=== PATIENT | male | born 1980 | race African-American/Black ===

== ENCOUNTER 2022-10-03 06:32 | Observation (INO) | payer MEDICARE, SELFPAY ==
[2022-10-03] VITALS (19 sets, daily range): BP systolic 116–163; BP diastolic 73–111; PULSE 66–95; RESP 15–18; TEMP 37.2–37.3; O2SAT 92–98; BMI 34.6
--- NOTE | 2022-10-03 06:37 | PC.NURSE ---
[facility] transfer center called at 0422 for bed availability. Pt information gathered and relayed to hospitalist at this time. (Dany Greenfield) [facility] called back at 0429 with acceptance and bed assignment was given at this time (209). Hospitalist notified that pt has arrived to ED at 0627.
--- NOTE | 2022-10-03 06:49 | CA_ITS ---
APPROVED REPORT EXAM: Comprehensive 2D, Doppler, and color-flow Echocardiogram Anesthesia Tech: Kaylah Nma RVT Ht: 6 ft 0 in Wt: 255lbs BSA: 2.36 BP: 160/98 mmHg Indications: NSTEMI,MAVIS,GERD,HTN,DM,CP 2D Dimensions LVOT 2.52 cm (M/F) 1.5-2.5 LA Volume 58.70 mL LA Volume Index 24.87 mL/m2 (M/F) 16-34 M-Mode Dimensions RVDd 2.15 cm (0.9-2.6) LA Diam 4.00 cm (1.9-4.0) LVDd 4.36 cm (3.5-5.7) Ao Diam 3.18 cm (2.0-3.7) LVDs 3.05 cm (3.5-5.7) IVSd 2.08 cm (0.6-1.1) PWd 0.67 cm (0.6-1.1) EF (Teich) 57.60% FS 30.00% EDV (Teich) 85.80 mL TAPSE 2.78 (<1.7) ESV (Teich) 36.40 mL LV Diastology E Decel Time 200.00 (160-240 msec) E/A Ratio 1.8 MED E' 5.60 (< 7 cm/sec) E'/MED E' Ratio 18.57 (>14) LAT E' 6.50 (<10 cm/sec) E/LAT E' Ratio 16.00 (>14) Aortic Valve AO Peak GR. 4.20 mmHg Mitral Valve MV E Max Phillip. 104.00 (40-130 cm/s) MV A Velocity 58.00 (40-130 cm/s) E/A Ratio 1.80 MV Decel. Time 200.00 (160-240 ms) MV PHT 59.00 ms Pulmonary Valve PV Peak Velocity 84.00 (50-150 cm/s) Tricuspid Valve TR P. Velocity 308.00 cm/s RAP Estimate 10.00 mmHg RVSP 48.00 mmHg Left Ventricle Left atrium is mildly enlarged, left ventricle is normal size mild concentric left ventricular hypertrophy, estimated ejection fraction 55% with no regional wall motion abnormality, diastolic parameters are inconclusive. Hypertrophy, estimated ejection fraction Right Ventricle Right atrium and right ventricle are mildly enlarged with normal contractility. Aortic Valve Aortic valve is grossly normal there is no aortic stenosis or aortic insufficiency. Mitral Valve Grossly normal, there is trace mitral regurgitation. Tricuspid Valve Cuspid valve grossly normal, there is mild tricuspid regurgitation, tricuspid regurgitation jet plus is inadequate for calculation of the right ventricular systolic pressure. Pulmonic Valve Pulmonic valve is poorly visualized. Great Vessels Aortic root is normal size. Inferior vena cava is poorly visualized. Pericardium No significant pericardial effusion noted. Conclusion 1. Mild biatrial enlargement, normal left ventricular size, mild concentric left ventricular hypertrophy, estimated ejection fraction 55% with no regional wall motion abnormality, diastolic parameters are inconclusive. 2. Mildly enlarged right ventricle with normal contractility. 3. Trace mitral and tricuspid regurgitation. 4. No significant pericardial effusion noted. 5. Inferior vena cava is poorly visualized. Electronically signed by : Carlin Dent MD 10/03/2022 17:26:41
--- NOTE | 2022-10-03 06:49 | XR_ITS ---
FINAL REPORT CLINICAL HISTORY: acs FINDINGS: A portable view of the chest is obtained. Cardiac and mediastinal silhouettes are normal. The lungs are clear. There is no pleural effusion or pneumothorax. IMPRESSION: No acute process on this portable exam. Reviewed, Interpreted and Dictated by Diane Burton MD Transcribed by Ana Cristina Foster Authenticated and [facility]
--- NOTE | 2022-10-03 06:52 | PC.NURSE ---
pt admitted as a direct admit from [place] to 209, placing tele on pt and notifying hospitalist that pt has arrived
--- NOTE | 2022-10-03 07:06 | PC.NURSE ---
notified MD Chamorro of pt's sleep apnea and that pt brought own cpap to hospital
[2022-10-03 07:21] LABS: Lactic Acid 1.7 mmol/L (0.7-2.1)
[2022-10-03 07:33] LABS: Troponin I < 0.01 ng/ml (0.00-0.034)
--- NOTE | 2022-10-03 07:37 | CT_ITS ---
FINAL REPORT TECHNIQUE: Axial imaging of the chest is obtained after the administration of contrast. 3-D MIP reformatted images were also obtained and reviewed per PE protocol. CLINICAL HISTORY: Chest Pain FINDINGS: The pulmonary arteries are well filled. There is no evidence of pulmonary embolus. There is no aortic dissection or intimal flap. There is no mediastinal, hilar, or axillary lymphadenopathy. The lungs are clear. There is no pleural or pericardial effusion. There is fluid density along the right paratracheal margin which may be an extension of the pericardial recess, a bronchogenic cyst is not excluded. Limited evaluation of the upper abdomen is without acute abnormality. There is fatty infiltrated liver. There is a nonobstructing left renal stone. There is no acute osseous abnormality. IMPRESSION: 1. No evidence of pulmonary embolism or aortic dissection. 2. Fluid density along the right paratracheal margin, could be an extension of the pericardial recess, bronchogenic cyst less likely. 3. Otherwise no acute abnormality identified. Reviewed, Interpreted and Dictated by Diane Burton MD Transcribed by Ana Cristina Foster Authenticated and [facility]
--- NOTE | 2022-10-03 07:41 | HMH.PHAINT1 ---
Pharmacy Intervention Comments: home medication list verified using list from outpat pharmacy and pt interview
[2022-10-03 07:50] LABS: Basophils # 0.1 K/mm3 (0-0.2); Basophils % 0.8 % (0.1-2.0); Eosinophils # 0.2 K/mm3 (0.0-0.4); Eosinophils % 2.6 % (0.1-12.0); Hematocrit 42.6 % (42.0-52.0); Hemoglobin 14.3 g/dL (14.1-18.0); Lymphocytes # 2.3 K/mm3 (0.7-4.5); Lymphocytes % 30.8 % (10-50); Mean Corpuscular HGB Conc 33.5 g/dL (31.8-35.4); Mean Corpuscular Hemoglobin 29.6 pg (27.0-31.2); Mean Corpuscular Volume 88.6 fl (80-94); Mean Platelet Volume 9.3 fl (7.4-10.4); Monocytes # 0.5 K/mm3 (0.1-1.0); Monocytes % 5.9 % (1.7-9.3); Neutrophils # 4.6 K/mm3 (1.8-7.8); Neutrophils % 59.9 % (37.0-80.0); Platelet Count 281 K/mm3 (142-424); Red Blood Count 4.81 M/mm3 (4.60-6.20); Red Cell Distribution Width 15.6 % (11.5-17.5); White Blood Count 7.6 K/mm3 (4.8-10.8)
--- NOTE | 2022-10-03 07:52 | EXP.HP ---
History of Present Illness *Admission Date: 10/03/22 *Reason for visit:: Chief complaint: Chest pain *History of present illness: This is a 42-year-old male that presents to [facility] emergency department with chest pain on the evening of the Bowl. He describes retrosternal chest pain characterized as pressure to his mid chest and radiating to his shoulders. He rated his pain as a 10 on a 1-10 pain scale. He denied associated diaphoresis, nausea or vomiting. He reports that it felt like bad indigestion. He experienced no associated confusion, syncope or unusual headaches. He reported some associated dyspnea but no cough or hemoptysis. In the ED in [place] his troponin trend was mid 70s and flat. His ECG identified inferior and lateral changes with sinus rhythm. His blood pressure was elevated. A chest x-ray identified no acute disease. He was administered morphine, aspirin, nitro and metoprolol and started on IV heparin drip. His care was transitioned to our facility for cardiology services. His HEART SCORE=6 and his JEWEL=4. Currently he reports some chest pressure but improved from ED presentation. [facility] Medical History (Updated 10/03/22 @ 07:59 by Vidal Chamorro MD) Diabetes GERD (gastroesophageal reflux disease) Hypertension Kidney stones MAVIS on CPAP Seizure disorder Surgical History (Updated 10/03/22 @ 07:59 by Vidal Chamorro MD) H/O shoulder surgery H/O wrist surgery History of cystoscopy History of lithotripsy Family History (Updated 10/03/22 @ 08:00 by Vidal Chamorro MD) Mother Hypertension Diabetes Father Stroke Other Seizures Social History (Updated 10/03/22 @ 07:11 by Mary Ellison RN) Smoking Status: Never smoker alcohol intake: former current occupational status: disabled Travel in the last 8 weeks: None Review of Systems Review of Systems Review of systems:: pertinent systems reviewed and negative unless documented below *Cardiovascular Cardiovascular: Reports chest pain, Reports chest pain with activity and Reports dyspnea *Respiratory Respiratory: Reports dyspnea Meds Home Medications and Allergies Home Medications Medication Instructions Recorded Confirmed Type atorvastatin 20 mg tablet 20 mg PO HS Cholesterol 10/03/22 10/03/22 History diltiazem HCl 240 mg 480 mg PO DAILY heart. 10/03/22 10/03/22 History capsule,extended release 24 hr, controlled (DILT-XR) hydralazine 50 mg tablet 50 mg PO BID High blood pressure 10/03/22 10/03/22 History labetalol 300 mg tablet 300 mg PO BID High blood pressure 10/03/22 10/03/22 History metformin 500 mg tablet 500 mg PO BID Diabetes 10/03/22 10/03/22 History omeprazole 20 mg capsule,delayed 20 mg PO DAILY acid reflux 10/03/22 10/03/22 History release oxcarbazepine 300 mg tablet 450 mg PO BID seizures 10/03/22 10/03/22 History spironolactone 25 mg tablet 25 mg PO DAILY diuretic 10/03/22 10/03/22 History New Prescriptions to Start Prescriptions: Allergies Allergy/AdvReac Type Severity Reaction Status Date / Time No Known Allergies Allergy Verified 10/03/22 06:53 Exam Data for Last 24 hours Vital signs and Labs for Last 24 Hours: Temp Pulse Resp BP Pulse Ox 98.9 F 70 18 160/98 H 93 L 10/03/22 07:27 10/03/22 07:27 10/03/22 07:27 10/03/22 07:27 10/03/22 07:27 Laboratory Results - last 24 hr 10/03/22 07:05: WBC 7.6, RBC 4.81, Hgb 14.3, Hct 42.6, MCV 88.6, MCH 29.6, MCHC 33.5, RDW 15.6, Plt Count 281, MPV 9.3, Neut % (Auto) 59.9, Lymph % (Auto) 30.8, [place] % (Auto) 5.9, Eos % (Auto) 2.6, Baso % (Auto) 0.8, Neut # (Auto) 4.6, Lymph # (Auto) 2.3, [place] # (Auto) 0.5, Eos # (Auto) 0.2, Baso # (Auto) 0.1 10/03/22 07:05: Troponin I < 0.01 10/03/22 07:05: Lactate 1.7 I & O for Last 24 hours: Intake & Output 09/30/22 10/01/22 10/02/22 10/03/22 23:59 23:59 23:59 23:59 Weight 115.694 kg Constitutional Constitutional: no acute distress, morbidly o
--- NOTE | 2022-10-03 07:58 | P.CONPHA_ITS ---
[facility] Pharmacy Heparin Dosing Demographic Data Admission date:: 10/03/22 Date: 10/03/22 Time: 07:58 Allergies Allergy/AdvReac Type Severity Reaction Status Date / Time No Known Allergies Allergy Verified 10/03/22 06:53 Height: 1.83 m Weight: 115.7 kg Indication Medication therapy:: Heparin Current Active Problems (Updated 10/03/22 @ 07:59 by Vidal Chamorro MD) NSTEMI (non-ST elevated myocardial infarction) (Acute) MAVIS on CPAP (Acute) Hypertension (Acute) GERD (gastroesophageal reflux disease) (Acute) Seizure disorder (Acute) Diabetes (Acute) CVA?: No Bleeding problem?: No Kidney disease?: No HI?: No Desired PTT range:: 50-75 seconds Labs Anticoagulation Lab Results:: 10/03/22 07:05 Hgb 14.3 Hct 42.6 Plt Count 281 Monitoring Dose Monitor 1: Date: 10/03/22 Time: 07:45 PTT Result:: 29.9 Infusion Rate:: 1,000 UNITS/HR Comment:: 4,000 UNIT BOLUS Core Measures Is INR > or = 2 at discharge?: No Most Recent Labs:: Laboratory Results - last 24 hr 10/03/22 07:05: WBC 7.6, RBC 4.81, Hgb 14.3, Hct 42.6, MCV 88.6, MCH 29.6, MCHC 33.5, RDW 15.6, Plt Count 281, MPV 9.3, Neut % (Auto) 59.9, Lymph % (Auto) 30.8, [place] % (Auto) 5.9, Eos % (Auto) 2.6, Baso % (Auto) 0.8, Neut # (Auto) 4.6, Lymph # (Auto) 2.3, Martin # (Auto) 0.5, Eos # (Auto) 0.2, Baso # (Auto) 0.1 10/03/22 07:05: Troponin I < 0.01 10/03/22 07:05: Lactate 1.7 Were Heparin and Warfarin started on the same day?: No
[2022-10-03 08:06] LABS: Alanine Aminotransferase 43 U/L (12-78); Albumin Level 4.8 g/dl (3.5-5.0); Albumin/Globulin Ratio 1.1 (1.1-1.8); Alkaline Phosphatase 102 U/L (38-126); Anion Gap 16.9 mEq/L (5-15); Aspartate Amino Transferase 35 U/L (17-59); Bilirubin,Total 0.7 mg/dl (0.2-1.3); Blood Urea Nitrogen 12 mg/dl (9-20); Calcium 9.3 mg/dl (8.4-10.2); Carbon Dioxide 23 mmol/L (22.0-30.0); Chloride 102 mmol/L (98-107); Creatinine Clearance Estimated 156 mL/min (50-200); Estimated Glomerular Filt Rate 82 ml/min (>60); GFR (African American) 99 ML/MIN (>60); Globulin 4.2 g/dL (1.3-3.2); Glucose 119 mg/dl (74-100); HDL Cholesterol 34 mg/dl (40-60); Magnesium 1.9 mg/dl (1.6-2.3); Phosphorous 4.2 mg/dl (2.5-4.5); Potassium 3.9 mmoL/L (3.5-5.1); Sodium 138 mmol/L (136-145)
[2022-10-03 08:07] LABS: Prothrombin Time 9.8 seconds (10.1-12.5)
[2022-10-03 08:14] LABS: Chol/HDL Ratio 14.8 (1-3.5); Cholesterol 504 mg/dl (140-200); Triglycerides 1550 mg/dl (30-150)
[2022-10-03 08:17] LABS: Direct LDL Cholesterol 53.96 mg/dL (100-129)
[2022-10-03 08:27] LABS: D-Dimer 0.67 ug/mL (0.0-0.5)
[2022-10-03 08:42] LABS: PTT Heparin (inpatient only) 29.9 Seconds (23.6-34.0)
--- NOTE | 2022-10-03 09:19 | IR_ITS ---
APPROVED REPORT Patient Location: Inpatient Immigration Coordinator: DOUGLAS Casey RT (R) PROCEDURES Left heart catheterization Left ventriculogram Selective coronary angiogram INDICATION Non-ST elevation myocardial infarction Informed consent was obtained prior to the procedure. COMPLICATIONS None Estimated Blood Loss: Less than 10 ML TECHNIQUE One percent lidocaine used to anesthetize the right anterior aspect of the wrist. The right radial artery was accessed via the Seldinger technique. A 6 Green[place] sheath was placed in the right radial artery. 2.5 mg of verapamil, 800 mcg of nitroglycerin, 1mg Lidocaine and 5000 U Heparin were given through the arterial sheath. The papa catheter was also used to perform left heart catheterization, left ventriculogram and selective coronary angiogram. At the end of the procedure the sheath was removed good hemostasis was achieved using Traclet band, patient was transferred to the postop holding area in stable condition. ANGIOGRAPHIC RESULTS The left main artery Normal The left anterior descending artery Normal The circumflex artery Dominant normal The right coronary artery Vestigial normal The OCONNOR ventriculogram reveals Dilated ventricle with hyperdynamic ejection fraction estimated at 75% The left ventricular end-diastolic pressure 20 mmHg IMPRESSION Normal coronary artery Dilated ventricle with hyperdynamic ejection fraction consistent with hypertensive heart disease Elevated LVEDP consistent with hypertensive heart disease Paroxysmal atrial fibrillation PLAN 1. Switch labetalol to carvedilol 25 p.o. twice daily 2. -[place]od[place] patients are more sensitive to thiazide diuretics therefore recommend switching to either 25 and possibly 50 mg daily of hydrochlorothiazide 3. If BLOSSOM inhibitors or ARB's are going to be used to go immediately to the maximum dosage 4. Continue diltiazem CD240 twice daily 5. Add anticoagulation due to paroxysmal atrial fibrillation 6. Discontinue hydralazine 7. Patient's blood pressure should be managed by carvedilol diltiazem ARB's plus appropriate dosage of hydrochlorothiazide Electronically signed by : Michael Greenfield MD 10/03/2022 11:56:58
[2022-10-03 10:24] LABS: Coronavirus 19, PCR Not Detected (NotDetected); Influenza A, PCR Not Detected (NotDetected); Influenza B, PCR Not Detected (NotDetected)
--- NOTE | 2022-10-03 11:00 | EXP.CARD.CON ---
History of Present Illness History of Present Illness Consult date: 10/03/22 Requesting physician: Vidal Chamorro Chief complaint: chest pain Additional Medical History:: Significant past medical hx HTN DM type II HLD MAVIS Seizure disorder [facility] 10/03/2022 [facility] report 10/03/2022 ANGIOGRAPHIC RESULTS The left main artery Normal The left anterior descending artery Normal The circumflex artery Dominant normal The right coronary artery Vestigial normal The OCONNOR ventriculogram reveals Dilated ventricle with hyperdynamic ejection fraction estimated at 75% The left ventricular end-diastolic pressure 20 mmHg IMPRESSION Normal coronary artery Dilated ventricle with hyperdynamic ejection fraction consistent with hypertensive heart disease Elevated LVEDP consistent with hypertensive heart disease Paroxysmal atrial fibrillation PLAN 1. Switch labetalol to carvedilol 25 p.o. twice daily 2. -[place]anese patients are more sensitive to thiazide diuretics therefore recommend switching to either 25 and possibly 50 mg daily of hydrochlorothiazide 3. If BLOSSOM inhibitors or ARB's are going to be used to go immediately to the maximum dosage 4. Continue diltiazem CD240 twice daily 5. Add anticoagulation due to paroxysmal atrial fibrillation 6. Discontinue hydralazine 7. Patient's blood pressure should be managed by carvedilol diltiazem ARB's plus appropriate dosage of hydrochlorothiazide History of present illness: 42 year old male presented to [facility] hospital as transfer from [place] for NSTEMI. Patient reports was in his usual state of health yesterday when he developed midsternal chest pressure radiating to back during [employer] game. Denies associated soa or nausea. Patient reports at first thought pain was indigestion but got worried when wouldn't go away. Reports hx of mild chest discomfort at times but usually when BP is elevated. Also reports hx of soa with minimal exertion. Denies hx of cardiology consult or cad. Troponin at [place] [facility] was mildly elevated and EKG showed changes in inferior and lateral leads. Risk factors include DM, obesity and HTN. Troponin at [facility] was 0.01. Chest x-ray and CTA of chest both are negative for acute processes. EKG negative for acute ischemic changes. [facility] Disclaimer: The information contained in this section may have been updated after the patient was seen, as this information can be updated by other users. Medical History (Updated 02/13/23 @ 07:59 by Vidal Chamorro MD) Diabetes GERD (gastroesophageal reflux disease) Hypertension Kidney stones MAVIS on CPAP Seizure disorder Surgical History (Updated 10/03/22 @ 07:59 by Vidal Chamorro MD) H/O shoulder surgery H/O wrist surgery History of cystoscopy History of lithotripsy Family History (Updated 10/03/22 @ 08:00 by Vidal Chamorro MD) Mother Hypertension Diabetes Father Stroke Other Seizures Social History (Updated 10/03/22 @ 08:14 by Vidal Chamorro MD) Smoking Status: Never smoker alcohol intake: former current occupational status: disabled Travel in the last 8 weeks: None Review of Systems Review of Systems Review of systems:: pertinent systems reviewed and negative unless documented below *Cardiovascular Cardiovascular: Reports chest pain and Reports dyspnea *Respiratory Respiratory: Reports dyspnea Exam Data for Last 24 hours Vital signs and Labs for Last 24 Hours: Temp Pulse Resp BP Pulse Ox 98.9 F 70 18 160/98 H 98 10/03/22 07:27 10/03/22 07:27 10/03/22 07:27 10/03/22 07:27 10/03/22 08:00 Laboratory Results - last 24 hr 10/03/22 07:05: WBC 7.6, RBC 4.81, Hgb 14.3, Hct 42.6, MCV 88.6, MCH 29.6, MCHC 33.5, RDW 15.6, Plt Count 281, MPV 9.3, Neut % (Auto) 59.9, Lymph % (Auto) 30.8, [place] % (Auto) 5.9, Eos % (Auto) 2.6, Baso % (Auto) 0.8, Neut # (Auto) 4.6, Lymph # (Auto) 2.3, [place] # (Auto) 0.5, Eos # (Auto) 0.2, Baso # (Auto) 0.1 10/03/22 07:05: Sodium 138, Potassium 3.9, Chl
[2022-10-03 11:04] LABS: Troponin I < 0.01 ng/ml (0.00-0.034)
--- NOTE | 2022-10-03 11:15 | CA_ITS ---
FINAL REPORT CLINICAL HISTORY: HTN,DM,HX KIDNEY STONES FINDINGS: Aorta velocity: 105 cm/sec Right kidney: 12.2 cm. No evidence of hydronephrosis or mass. Right intrarenal RI: 0.5 Right renal artery velocity: 115 cm/sec. Right RAR (Renal artery-Aortic Ratio): 1.1 Left Kidney: 14.1 cm. No evidence of hydronephrosis or stone. There is a 2.4 cm mid left renal cyst. Left intrarenal RI: 0.5 Left renal artery velocity: 166 cm/sec. Left RAR (Renal Artery-Aortic Ratio): 1.5 IMPRESSION: No evidence of significant renal artery stenosis. CT angiogram or postcontrast MR angiogram would be more sensitive for evaluation of possible renal artery stenosis. Reviewed, Interpreted and Dictated by Diane Burton MD Transcribed by Elena García Authenticated and [facility]
--- NOTE | 2022-10-03 11:15 | US_ITS ---
PROCEDURE INFORMATION: Exam: US Retroperitoneal Limited. Exam date and time: 10/03/2022 4:11 PM Age: 42 years old Clinical indication: Condition or disease; Other: Hypertension; Additional info: HTN TECHNIQUE: Imaging protocol: Real-time ultrasound of the retroperitoneum with image documentation. COMPARISON: No relevant recent comparison exams. FINDINGS: Right kidney: 12.1 cm demonstrating normal echotexture, renal cortical thickness is normal without nephrolithiasis or hydronephrosis. Left kidney: 12.2 cm demonstrating parapelvic cystic nodule and cortical lobulation/scarring. Otherwise normal echotexture, renal cortical thickness is normal without nephrolithiasis or hydronephrosis. Other findings: Incidental note of fatty infiltration of the liver. IMPRESSION: 1. LEFT parapelvic cystic nodule and cortical scarring. 2. Otherwise unremarkable kidneys without hydronephrosis or nephrolithiasis. 3. Incidental note of fatty infiltration of the liver.
[2022-10-03 14:01] LABS: Troponin I < 0.01 ng/ml (0.00-0.034)
[2022-10-03 16:05] LABS: POC Glucose,Bedside 97 (70-110)
--- NOTE | 2022-10-03 17:09 | PC.NURSE ---
PT IS RESTING IN BED. ALERT AND ORIENTED X4. EATING AND DRINKING WELL. RADIAL CATH SITE DRESSING C/D/I. CATH VSS. WILL CONTINUE TO MONITOR.
[2022-10-03 20:15] LABS: POC Glucose,Bedside 146 (70-110)
[2022-10-04] VITALS (7 sets, daily range): BP systolic 112–165; BP diastolic 76–95; PULSE 50–80; RESP 16–20; TEMP 36.5–37.3; O2SAT 95–97; BMI 34.9
[2022-10-04 06:15] LABS: POC Glucose,Bedside 114 (70-110)
[2022-10-04 06:33] LABS: Chloride 105 mmol/L (98-107)
[2022-10-04 06:34] LABS: Basophils # 0.1 K/mm3 (0-0.2); Basophils % 0.9 % (0.1-2.0); Eosinophils # 0.2 K/mm3 (0.0-0.4); Eosinophils % 3.5 % (0.1-12.0); Hematocrit 41.5 % (42.0-52.0); Hemoglobin 13.3 g/dL (14.1-18.0); Lymphocytes # 1.7 K/mm3 (0.7-4.5); Lymphocytes % 25.2 % (10-50); Mean Corpuscular HGB Conc 32.1 g/dL (31.8-35.4); Mean Corpuscular Hemoglobin 29.3 pg (27.0-31.2); Mean Corpuscular Volume 91.2 fl (80-94); Mean Platelet Volume 9.1 fl (7.4-10.4); Monocytes # 0.4 K/mm3 (0.1-1.0); Monocytes % 6.2 % (1.7-9.3); Neutrophils # 4.4 K/mm3 (1.8-7.8); Neutrophils % 64.3 % (37.0-80.0); Platelet Count 289 K/mm3 (142-424); Potassium 4.7 mmoL/L (3.5-5.1); Red Blood Count 4.55 M/mm3 (4.60-6.20); Sodium 137 mmol/L (136-145); White Blood Count 6.9 K/mm3 (4.8-10.8)
[2022-10-04 06:36] LABS: Blood Urea Nitrogen 22 mg/dl (9-20); Creatinine Clearance Estimated 61 mL/min (50-200); Estimated Glomerular Filt Rate 27 ml/min (>60); GFR (African American) 33 ML/MIN (>60)
--- NOTE | 2022-10-04 06:36 | PC.NURSE ---
NO ACUTE CHANGES THIS SHIFT. VSS. PT HAS C/O OF INDIGESTION THIS SHIFT. PRN TUMS HAVE HELPED STATED BY PT. AMBULATING INDEPENDENTLY. CATH SIGHT C/D/I.
[2022-10-04 06:37] LABS: Anion Gap 14.7 mEq/L (5-15); Calcium 8.9 mg/dl (8.4-10.2); Carbon Dioxide 22 mmol/L (22.0-30.0); Glucose 114 mg/dl (74-100); HDL Cholesterol 30 mg/dl (40-60); Magnesium 2.2 mg/dl (1.6-2.3)
[2022-10-04 06:48] LABS: Direct LDL Cholesterol 58.03 mg/dL (100-129)
[2022-10-04 06:49] LABS: Chol/HDL Ratio 13.5 (1-3.5); Cholesterol 405 mg/dl (140-200); Triglycerides 1312 mg/dl (30-150)
[2022-10-04 06:50] LABS: INR 1.14 (0.9-1.1); Prothrombin Time 12.2 seconds (10.1-12.5)
[2022-10-04 07:09] LABS: Hemoglobin A1C 6.1 % (4.0-6.0)
--- NOTE | 2022-10-04 10:01 | EXP.PN ---
Subjective *Date: 10/04/22 *Time: 10:01 Interval history: Date of service October 04, 2022 The patient is accompanied by his . He voices no acute events overnight. Nursing staff report that he remains afebrile with stable vital signs and saturating appropriately on room air. We have reviewed and discussed his morning labs and I personally interpreted his labs as follows: CBC with normal white blood cell count, stable hemoglobin and hematocrit and normal platelet count 289. His morning electrolytes are normal his BUN is 22 and his creatinine has increased to 2.6 from 1.0. His glucose trend is under 150. His hemoglobin A1c 6.1%. His morning lipid panel identifies triglycerides greater than 1300, cholesterol 400, LDL 58 and HDL 30. We have also reviewed his renal artery duplex which identifies no renal artery stenosis and renal ultrasound identifies no acute disease. His echocardiogram identifies LVH with EF 55%. Exam Data for Last 24 hours Vital signs and Labs for Last 24 Hours: Temp Pulse Resp BP Pulse Ox 97.7 F 69 19 131/76 96 10/04/22 08:00 10/04/22 08:00 10/04/22 08:00 10/04/22 08:00 10/04/22 08:00 Laboratory Results - last 24 hr 10/03/22 10:02: SARS-CoV-2 (PCR) Not detected, Influenza A Untype (PCR) Not detected, Influenza Type B (PCR) Not detected 10/03/22 10:35: Troponin I < 0.01 10/03/22 13:30: Troponin I < 0.01 10/03/22 15:51: POC Glucose 97 10/03/22 20:06: POC Glucose 146 H 10/04/22 06:00: WBC 6.9, RBC 4.55 L, Hgb 13.3 L, Hct 41.5 L, MCV 91.2, MCH 29.3, MCHC 32.1, RDW 16.0, Plt Count 289, MPV 9.1, Neut % (Auto) 64.3, Lymph % (Auto) 25.2, Emery % (Auto) 6.2, Eos % (Auto) 3.5, Baso % (Auto) 0.9, Neut # (Auto) 4.4, Lymph # (Auto) 1.7, Emery # (Auto) 0.4, Eos # (Auto) 0.2, Baso # (Auto) 0.1 10/04/22 06:00: PT 12.2, INR 1.14 H 10/04/22 06:00: Sodium 137, Potassium 4.7 D, Chloride 105, Carbon Dioxide 22, Anion Gap 14.7, BUN 22 H D, Creatinine 2.60 H D, Estimated Creat Clear 61, Estimated GFR 27 L, Est GFR ( Amer) 33 L D, Glucose 114 H, Calcium 8.9, Magnesium 2.2 D, Triglycerides 1312 H, Cholesterol 405 H, LDL Cholesterol Direct 58.03 L, HDL Cholesterol 30 L, Cholesterol/HDL Ratio 13.5 H 10/04/22 06:00: Hemoglobin A1c 6.1 H 10/04/22 06:03: POC Glucose 114 H I & O for Last 24 hours: Intake & Output 10/01/22 10/02/22 10/03/22 10/04/22 23:59 23:59 23:59 23:59 Intake Total 480 / 480 240 / 240 Output Total 450 / 450 0 / 0 Balance 30 / 30 240 / 240 Weight 115.7 kg 117.072 kg Constitutional Constitutional: no acute distress and cooperative *Routine HEENT Exam Head: Present normocephalic Eye: Present EOMI and PERRL ENT: Present mucous membranes moist *Routine Neck Exam Neck: Present supple; Absent lymphadenopathy *Routine Respiratory Exam Respiratory: Present CTA bilaterally, normal respiratory effort and symmetric chest movement *Routine Cardiovascular Exam Cardiovascular: Present RRR *Routine Abdominal Exam Abdominal: Present soft and normoactive bowel sounds; Absent tenderness *Routine Extremities Exam Extremities: Present full ROM, pulses intact and normal capillary refill; Absent cyanosis, clubbing or edema *Routine Skin Exam Skin: Present warm; Absent rash *Routine Neurological Exam Neurological: Present alert, oriented X3, moving all extremities, vision grossly intact, hearing grossly intact and normal speech; Absent sensory deficit or motor deficit Routine Psychiatric Exam Psychiatric: Present normal affect, normal thought process, cooperative, good insight and good judgment Assessment and Plan *Assessment and plan (1) NSTEMI (non-ST elevated myocardial infarction): Status: Acute Category: Medical Code(s): I21.4 - Non-ST elevation (NSTEMI) myocardial infarction (2) Hypertension: Status: Acute Category: Medical Code(s): I10 - Essential (primary) hypertension (3) Diabetes: Status: Acute Category: Medical Code(s): E11.
--- NOTE | 2022-10-04 10:24 | EXP.CARD.PN ---
Subjective Subjective Date: 10/04/22 Time: 08:00 Principal diagnosis: NSTEMI, HTN Interval history: Doing well, denies chest pain or soa. BP greatly improved from yesterday. Renal artery ultrasound and renal ultrasound negative for acute disease. AM llabs reviewed:creatinine elevated to 2.60 today. Exam Data for Last 24 hours Vital signs and Labs for Last 24 Hours: Temp Pulse Resp BP Pulse Ox 97.7 F 69 19 131/76 96 10/04/22 08:00 10/04/22 08:00 10/04/22 08:00 10/04/22 08:00 10/04/22 08:00 Laboratory Results - last 24 hr 10/03/22 10:02: SARS-CoV-2 (PCR) Not detected, Influenza A Untype (PCR) Not detected, Influenza Type B (PCR) Not detected 10/03/22 10:35: Troponin I < 0.01 10/03/22 13:30: Troponin I < 0.01 10/03/22 15:51: POC Glucose 97 10/03/22 20:06: POC Glucose 146 H 10/04/22 06:00: WBC 6.9, RBC 4.55 L, Hgb 13.3 L, Hct 41.5 L, MCV 91.2, MCH 29.3, MCHC 32.1, RDW 16.0, Plt Count 289, MPV 9.1, Neut % (Auto) 64.3, Lymph % (Auto) 25.2, Stone % (Auto) 6.2, Eos % (Auto) 3.5, Baso % (Auto) 0.9, Neut # (Auto) 4.4, Lymph # (Auto) 1.7, Stone # (Auto) 0.4, Eos # (Auto) 0.2, Baso # (Auto) 0.1 10/04/22 06:00: PT 12.2, INR 1.14 H 10/04/22 06:00: Sodium 137, Potassium 4.7 D, Chloride 105, Carbon Dioxide 22, Anion Gap 14.7, BUN 22 H D, Creatinine 2.60 H D, Estimated Creat Clear 61, Estimated GFR 27 L, Est GFR ( Amer) 33 L D, Glucose 114 H, Calcium 8.9, Magnesium 2.2 D, Triglycerides 1312 H, Cholesterol 405 H, LDL Cholesterol Direct 58.03 L, HDL Cholesterol 30 L, Cholesterol/HDL Ratio 13.5 H 10/04/22 06:00: Hemoglobin A1c 6.1 H 10/04/22 06:03: POC Glucose 114 H I & O for Last 24 hours: Intake & Output 10/01/22 10/02/22 10/03/22 10/04/22 23:59 23:59 23:59 23:59 Intake Total 480 / 480 240 / 240 Output Total 450 / 450 0 / 0 Balance 240 / 240 Weight 255 lb 1.197 oz 258 lb 1.6 oz Constitutional Constitutional: no acute distress *Routine Respiratory Exam Respiratory: Present CTA bilaterally and symmetric chest movement *Routine Cardiovascular Exam Cardiovascular: Present RRR, Normal S1 and Normal S2 *Routine Abdominal Exam Abdominal: Present soft and normoactive bowel sounds; Absent tenderness *Routine Extremities Exam Extremities: Present full ROM and normal capillary refill; Absent edema *Routine Skin Exam Skin: Present intact, dry and warm Detailed Neck Exam: Thyroids Thyroid: Absent bruit Progress Note: A&P Assessment and plan (1) NSTEMI (non-ST elevated myocardial infarction): Status: Acute (2) Hypertension: Status: Acute (3) Diabetes: Status: Acute (4) MAVIS on CPAP: Status: Acute (5) GERD (gastroesophageal reflux disease): Status: Acute (6) Seizure disorder: Status: Acute Assessment and Plan Assessment and Plan for All Diagnoses:: NSTEMi -Troponin 0.01 here -EKG -Patient underwent LHC today- normal cors noted. PAF chadsvasc score 2 (dm and htn)-currently NSR -Prelim echo shows normal ef and valves. 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 with hydration, continue to monitor HLD -Triglycerides 1312, LDL 58. Start high dose statin. DM type II -defer to primary service MAVIS on CPAP -defer to primary service CV summary 10/04/2022: BP greatly improved, creatinine 2.6. gentle fluids and monitor.
[2022-10-04 12:15] LABS: POC Glucose,Bedside 104 (70-110)
--- NOTE | 2022-10-04 14:30 | PC.NURSE ---
Pt has been alert and oriented x4. He remains on RA and tolerating well. He's been NSR on telemetry. He ambulates to the bathroom independently. Glucose at last check was 104. Fluids are infusing @ 150mls/hr per order. He uses his cpap at bedside when sleeping. Dressing to cath site is clean, dry and intact. has been at bedside and updated on poc. He denies any complaints at this time. Bed is locked and in the lowest position, call light is within reach.
[2022-10-04 15:24] LABS: Chloride 105 mmol/L (98-107); Potassium 4.1 mmoL/L (3.5-5.1); Sodium 138 mmol/L (136-145)
[2022-10-04 15:27] LABS: Anion Gap 15.1 mEq/L (5-15); Blood Urea Nitrogen 23 mg/dl (9-20); Carbon Dioxide 22 mmol/L (22.0-30.0); Creatinine Clearance Estimated 83 mL/min (50-200); Estimated Glomerular Filt Rate 39 ml/min (>60); GFR (African American) 47 ML/MIN (>60)
[2022-10-04 15:28] LABS: Calcium 9.1 mg/dl (8.4-10.2); Glucose 118 mg/dl (74-100)
[2022-10-04 17:26] LABS: POC Glucose,Bedside 126 (70-110)
[2022-10-04 22:03] LABS: POC Glucose,Bedside 110 (70-110)
[2022-10-05] VITALS: BP 143/80; PULSE 60; PULSE 70; RESP 16; TEMP 37.1; O2SAT 96
[2022-10-05 04:00] VITALS: BP 133/84; PULSE 72; PULSE 80; RESP 16; TEMP 37; BMI 35.3
[2022-10-05 06:50] LABS: Chloride 107 mmol/L (98-107)
[2022-10-05 06:51] LABS: Potassium 4.1 mmoL/L (3.5-5.1); Sodium 140 mmol/L (136-145)
[2022-10-05 06:53] LABS: Blood Urea Nitrogen 21 mg/dl (9-20); Creatinine Clearance Estimated 114 mL/min (50-200); Estimated Glomerular Filt Rate 55 ml/min (>60); GFR (African American) 67 ML/MIN (>60)
[2022-10-05 06:54] LABS: Anion Gap 14.1 mEq/L (5-15); Calcium 8.4 mg/dl (8.4-10.2); Carbon Dioxide 23 mmol/L (22.0-30.0); Glucose 107 mg/dl (74-100)
[2022-10-05 07:36] VITALS: PULSE 77; RESP 19; TEMP 37.1; O2SAT 95
--- NOTE | 2022-10-05 07:50 | P.PN_ITS ---
Subjective Subjective Date: 10/05/22 Time: 08:00 Principal diagnosis: NSTEMI, HTN Interval history: Doing well, no complaints. AM labs reviewed, creatinine improved to 1.4. Exam Data for Last 24 hours Vital signs and Labs for Last 24 Hours: Temp Pulse Resp BP Pulse Ox 98.7 F 77 19 133/84 95 10/05/22 07:36 10/05/22 07:36 10/05/22 07:36 10/05/22 04:00 10/05/22 07:36 Laboratory Results - last 24 hr 10/04/22 12:07: POC Glucose 104 10/04/22 15:05: Sodium 138, Potassium 4.1, Chloride 105, Carbon Dioxide 22, Anion Gap 15.1 H, BUN 23 H, Creatinine 1.90 H D, Estimated Creat Clear 83, Estimated GFR 39 L, Est GFR ( Amer) 47 L D, Glucose 118 H, Calcium 9.1 10/04/22 16:59: POC Glucose 126 H 10/04/22 20:17: POC Glucose 110 10/05/22 06:05: Sodium 140, Potassium 4.1, Chloride 107, Carbon Dioxide 23, Anion Gap 14.1, BUN 21 H, Creatinine 1.40 H D, Estimated Creat Clear 114, Estimated GFR 55 L, Est GFR ( Amer) 67 D, Glucose 107 H, Calcium 8.4 I & O for Last 24 hours: Intake & Output 10/02/22 10/03/22 10/04/22 10/05/22 23:59 23:59 23:59 23:59 Intake Total 480 / 480 2247 Output Total 450 / 450 0 / 0 Balance 2247 Weight 255 lb 1.197 oz 257 lb 15.053 oz 260 lb 11.2 oz Constitutional Constitutional: no acute distress *Routine Respiratory Exam Respiratory: Present CTA bilaterally and symmetric chest movement *Routine Cardiovascular Exam Cardiovascular: Present RRR, Normal S1 and Normal S2 *Routine Abdominal Exam Abdominal: Present soft and normoactive bowel sounds; Absent tenderness *Routine Extremities Exam Extremities: Present full ROM and normal capillary refill; Absent edema *Routine Skin Exam Skin: Present intact, dry and warm Detailed Neck Exam: Thyroids Thyroid: Absent bruit Progress Note: A&P Assessment and plan (1) NSTEMI (non-ST elevated myocardial infarction): Status: Acute (2) Hypertension: Status: Acute (3) Diabetes: Status: Acute (4) MAVIS on CPAP: Status: Acute (5) GERD (gastroesophageal reflux disease): Status: Acute (6) Seizure disorder: Status: Acute Assessment and Plan Assessment and Plan for All Diagnoses:: NSTEMi -Troponin 0.01 here -EKG -Patient underwent LHC today- normal cors noted. 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 Will hydrate with gentle fluids, continue to monitor 10/05/2022- Improved to 1.4 HLD -Triglycerides 1312, LDL 58. Start high dose statin. DM type II -defer to primary service MAVIS on CPAP -defer to primary service CV summary: CV stable for dc home. please have patient continue below listed medications and follow up in office in 1 week for recheck. CV meds Carvedilol 25mg BID Dilt CD 240mg po BID Diovan HCT 320/25mg po daily Jardiance 10mg PO daily Aldactone 25mg po daily Xarelto 20mg po daily Crestor 40mg po daily
--- NOTE | 2022-10-05 08:16 | EXP.DC.SUM ---
General Admission date:: 10/03/22 Discharge date: 10/05/22 HPI HPI HPI: This is a 42-year-old male that presents to [facility] emergency department with chest pain on the evening of the [place]. He describes retrosternal chest pain characterized as pressure to his mid chest and radiating to his shoulders. He rated his pain as a 10 on a 1-10 pain scale. He denied associated diaphoresis, nausea or vomiting. He reports that it felt like bad indigestion. He experienced no associated confusion, syncope or unusual headaches. He reported some associated dyspnea but no cough or hemoptysis. In the ED in [place] his troponin trend was mid 70s and flat. His ECG identified inferior and lateral changes with sinus rhythm. His blood pressure was elevated. A chest x-ray identified no acute disease. He was administered morphine, aspirin, nitro and metoprolol and started on IV heparin drip. His care was transitioned to our facility for cardiology services. His HEART SCORE=6 and his JEWEL=4. Currently he reports some chest pressure but improved from ED presentation. Hospital Course Hospital Course Hospital Course: The patient is admitted to the medical unit with telemetry and pulse oximetry monitoring. Cardiology is consulted. With his comorbidities, risk factors, elevated heart and JEWEL scores cardiology recommended a left heart cath. His medications are adjusted and improved blood pressures were identified. A CTA of the chest identified no acute disease. He was maintained on PPI therapy for reflux type symptomatology. An echocardiogram identified an ejection fraction of 55% with LVH and unidentifiable RVSP. He was maintained on his NIPPV therapy throughout his hospitalization course. A renal ultrasound identified no acute disease and renal duplex identified no renal artery stenosis. Radiology commented on fatty liver on his renal ultrasound. He underwent a left heart cath that identified no occlusive or interventional disease. Post procedurally his creatinine increased to 2.6. Atrial fibrillation was identified and with his elevated [id number] score anticoagulation therapy with factor Xa inhibitor therapy is recommended. He received IV fluids and his creatinine was trended downward. On discharge his creatinine was 1.4. Medication adjustments were made and reviewed for discharge. The patient was provided with counseling and medication education including the importance of continuing with statin therapy for his abnormal lipid analysis and identified fatty liver on imaging. He will continue with beta-gio therapy, aldosterone antagonist therapy, ARB therapy, hydrochlorothiazide therapy, SGLT2 inhibitor therapy and calcium channel gio therapy. He should discontinue his hydralazine therapy and labetalol therapy. He should see his PCP in 1 week and cardiology as scheduled for follow-up. I spent 35 minutes in [id number] time with the patient and nursing staff concerning the discharge process. We discussed the admitting diagnoses and hospital course. We discussed identified improvement and the patient's desire to be discharged. We reviewed inpatient studies and imaging. The patient voiced understanding on the importance of follow-up with his primary care provider and specialist(s). The patient plans to be compliant with the medication regimen prescribed and follow-up appointments. He understands that he can return to the emergency department with any sudden changes or concerns. Exam Data for Last 24 hours Vital signs and Labs for Last 24 Hours: Temp Pulse Resp BP Pulse Ox 98.7 F 77 19 133/84 95 10/05/22 07:36 10/05/22 07:36 10/05/22 07:36 10/05/22 04:00 10/05/22 07:36 Laboratory Results - last 24 hr 10/04/22 12:07: POC Glucose 104 10/04/22 15:05: Sodium 138, Potassium 4.1, Chloride 105, Carbon Dioxide 22, Anion Gap 15.1 H, BUN 23 H, Creatinine 1.90 H D, Estimated Creat Clear 83, Estimated GFR 39 L,
--- NOTE | 2022-10-05 08:58 | HMH.PHAINT1 ---
Pharmacy Intervention Comments: Discussed discharge medications with patient. Patient verbalized understanding and had no questions at this time.
[2022-10-05 11:15] LABS: POC Glucose,Bedside 104 (70-110)
--- NOTE | 2022-10-06 11:11 | CARE MANAGER ---
Spoke with patient related to hospital discharge. Patient states he does have all his medications and had questions regarding diabetes medication and went over his discharge medications. He verbalized understanding. He is aware of follow up appointments and denies other questions. LOIDA Mtahew
== END 2022-10-05 11:35 | disposition home or self-care (01) ==
PROVIDERS: Internal Medicine; Admitting Provider Student in an Organized Health Care Education/Training Program; PCP Internal Medicine; Visit Provider Family Medicine
DX: I21.4 Non-ST elevation (NSTEMI) myocardial infarction (principal); I11.9 Hypertensive heart disease without heart failure; I48.0 Paroxysmal atrial fibrillation; K21.9 Gastro-esophageal reflux disease without esophagitis; G40.909 Epilepsy, unspecified, not intractable, without status epilepticus; E11.22 Type 2 diabetes mellitus with diabetic chronic kidney disease; N17.9 Acute kidney failure, unspecified; Z79.84 Long term (current) use of oral hypoglycemic drugs; Z20.822 Contact with and (suspected) exposure to COVID-19
CPT/HCPCS: G0378; G0379; 36415; 71045; 71275; 76770; 80048; 80053; 80061; 82962; 83036; 83605; 83735; 84100; 84484; 85025; 85378; 85610; 85730; 93306; 93458; 93976; 99152; C1725; C1769; C9803; J1644; Q9967; U0003; U0005

== ENCOUNTER → 2022-10-18 14:27 | Outpatient (CLI) | payer MEDICARE, SELFPAY ==
[2022-10-18 15:20] LABS: Chloride 105 mmol/L (98-107); Potassium 3.9 mmoL/L (3.5-5.1); Sodium 139 mmol/L (136-145)
[2022-10-18 15:23] LABS: Blood Urea Nitrogen 25 mg/dl (9-20); Estimated Glomerular Filt Rate 55 ml/min (>60); GFR (African American) 67 ML/MIN (>60)
[2022-10-18 15:24] LABS: Anion Gap 15.9 mEq/L (5-15); Calcium 9.2 mg/dl (8.4-10.2); Carbon Dioxide 22 mmol/L (22.0-30.0); Glucose 100 mg/dl (74-100)
== END ==
PROVIDERS: PCP Internal Medicine; Visit Provider Nurse Practitioner
DX: I10 Essential (primary) hypertension (principal); N17.9 Acute kidney failure, unspecified
CPT/HCPCS: 36415; 80048

== ENCOUNTER 2023-12-05 09:41 | Outpatient (CLI) | payer MEDICARE, SELFPAY ==
[2023-12-05 10:25] LABS: Basophils # 0.1 K/mm3 (0-0.2); Basophils % 1.4 % (0.1-2.0); Eosinophils # 0.2 K/mm3 (0.0-0.4); Eosinophils % 3.5 % (0.1-12.0); Hematocrit 43.1 % (42.0-52.0); Hemoglobin 14.2 g/dL (14.1-18.0); Lymphocytes % 33.8 % (10-50); Mean Corpuscular HGB Conc 32.9 g/dL (31.8-35.4); Mean Corpuscular Hemoglobin 31.3 pg (27.0-31.2); Mean Corpuscular Volume 95.3 fl (80-94); Mean Platelet Volume 9.4 fl (7.4-10.4); Monocytes # 0.3 K/mm3 (0.1-1.0); Monocytes % 5.5 % (1.7-9.3); Neutrophils # 3.3 K/mm3 (1.8-7.8); Neutrophils % 55.8 % (37.0-80.0); Platelet Count 243 K/mm3 (142-424); Red Blood Count 4.52 M/mm3 (4.60-6.20); Red Cell Distribution Width 15.7 % (11.5-17.5); White Blood Count 5.9 K/mm3 (4.8-10.8)
[2023-12-05 10:57] LABS: Alanine Aminotransferase 32 U/L (12-78); Albumin Level 4.6 g/dl (3.5-5.0); Alkaline Phosphatase 89 U/L (38-126); Anion Gap 13.9 mEq/L (5-15); Aspartate Amino Transferase 30 U/L (17-59); Bilirubin,Direct 0.2 mg/dl (0.0-0.4); Bilirubin,Indirect 0.8 mg/dL (0.0-0.9); Bilirubin,Unconjugated 0.8 mg/dL (0.0-1.1); Blood Urea Nitrogen 14 mg/dl (9-20); Calcium 9.9 mg/dl (8.4-10.2); Carbon Dioxide 24 mmol/L (22.0-30.0); Chloride 107 mmol/L (98-107); Estimated Glomerular Filt Rate 73 ml/min (>60); GFR (African American) 88 ML/MIN (>60); Glucose 108 mg/dl (74-100); HDL Cholesterol 44 mg/dl (40-60); Magnesium 1.8 mg/dl (1.6-2.3); Potassium 3.9 mmoL/L (3.5-5.1); Sodium 141 mmol/L (136-145); Total Protein,Serum 7.8 g/dl (6.3-8.2)
[2023-12-05 11:06] LABS: Chol/HDL Ratio 7.5 (1-3.5); Cholesterol 331 mg/dl (140-200); Triglycerides 949 mg/dl (30-150)
[2023-12-05 11:08] LABS: Direct LDL Cholesterol 67.99 mg/dL (100-129)
[2023-12-05 11:12] LABS: Free T4 (Free Thyroxine) 0.86 ng/dl (0.78-2.19)
[2023-12-05 11:26] LABS: Thyroid Stimulating Hormone 1.12 uIU/mL (0.465-4.68)
[2023-12-11 09:27] LABS: Dopamine, Plasma < 30 pg/mL (0-48); Epinephrine, Plasma 65 pg/mL (0-62); Norepinephrine, Plasma 181 pg/mL (0-874)
[2023-12-12 15:10] LABS: Metanephrine Plasma 36.1 pg/mL (0.0-88.0); Normetanephrine Plasma 59.2 pg/mL (0.0-218.9)
[2023-12-14 07:55] LABS: Renin 0.217
== END 2023-12-05 23:59 | disposition home or self-care (01) ==
LOC: LAB 09:43
PROVIDERS: PCP Internal Medicine; Visit Provider Nurse Practitioner
DX: I48.0 Paroxysmal atrial fibrillation (principal); I21.4 Non-ST elevation (NSTEMI) myocardial infarction; G47.33 Obstructive sleep apnea (adult) (pediatric); Z99.89 Dependence on other enabling machines and devices; I10 Essential (primary) hypertension; E13.69 Other specified diabetes mellitus with other specified complication; Z51.81 Encounter for therapeutic drug level monitoring; Z79.01 Long term (current) use of anticoagulants
CPT/HCPCS: 36415; 80048; 80061; 80076; 82088; 82384; 83735; 83835; 84244; 84439; 84443; 85025

== ENCOUNTER 2023-12-07 08:59 | Outpatient (CLI) | payer MEDICARE, SELFPAY ==
[2023-12-12 17:13] LABS: Dopamine, Ur, 24hr 260 ug/24 hr (0-510); Dopamine, Urine 236 ug/L (Undefined); Epinephrine, U, 24hr 6 ug/24 hr (0-20); Epinephrine, Urine 5 ug/L (Undefined); Norepinephrine, Ur 35 ug/L (Undefined); Norepinephrine,U,24h 39 ug/24 hr (0-135); VMA, Urine 2.7 mg/L (Undefined)
[2023-12-13 16:13] LABS: Metanephrine, U,24hr 111 ug/24 hr (58-276); Metanephrine, Ur 101 ug/L (Undefined); Normetanephr.,U,24h 272 ug/24 hr (156-729); Normetanephrine, Ur 247 ug/L (Undefined)
== END 2023-12-07 10:07 ==
LOC: ACC 09:00
PROVIDERS: PCP Internal Medicine; Visit Provider Nurse Practitioner
DX: I48.0 Paroxysmal atrial fibrillation (principal); I21.4 Non-ST elevation (NSTEMI) myocardial infarction; G47.33 Obstructive sleep apnea (adult) (pediatric); Z99.89 Dependence on other enabling machines and devices; I10 Essential (primary) hypertension; E13.69 Other specified diabetes mellitus with other specified complication; Z79.01 Long term (current) use of anticoagulants; Z79.84 Long term (current) use of oral hypoglycemic drugs
CPT/HCPCS: 82384; 83835; 84585; 85610; 99211; G0463

== ENCOUNTER 2023-12-11 11:56 | Outpatient (CLI) | payer MEDICARE, SELFPAY ==
[2023-12-11 12:46] LABS: PHA INR Fingerstick 1.7 (0.9-1.1)
== END 2023-12-11 12:49 ==
LOC: ACC 11:57
PROVIDERS: PCP Nurse Practitioner Family; Visit Provider Nurse Practitioner
DX: Z79.01 Long term (current) use of anticoagulants (principal); Z51.81 Encounter for therapeutic drug level monitoring
CPT/HCPCS: 85610; 99211; G0463

== ENCOUNTER 2023-12-18 14:09 | Outpatient (CLI) | payer MEDICARE, SELFPAY ==
[2023-12-18 15:55] LABS: Alanine Aminotransferase 42 U/L (12-78); Albumin Level 4.9 g/dl (3.5-5.0); Albumin/Globulin Ratio 1.4 (1.1-1.8); Alkaline Phosphatase 104 U/L (38-126); Anion Gap 17.1 mEq/L (5-15); Aspartate Amino Transferase 35 U/L (17-59); Bilirubin,Total 0.6 mg/dl (0.2-1.3); Blood Urea Nitrogen 17 mg/dl (9-20); Calcium 10.3 mg/dl (8.4-10.2); Carbon Dioxide 23 mmol/L (22.0-30.0); Chloride 104 mmol/L (98-107); Estimated Glomerular Filt Rate 73 ml/min (>60); GFR (African American) 88 ML/MIN (>60); Globulin 3.4 g/dL (1.3-3.2); Glucose 89 mg/dl (74-100); Potassium 4.1 mmoL/L (3.5-5.1); Sodium 140 mmol/L (136-145); Total Protein,Serum 8.3 g/dl (6.3-8.2)
[2023-12-18 16:41] LABS: Hemoglobin A1C 6.1 % (4.0-6.0)
[2023-12-19 21:14] LABS: H. pylori Breath Test Negative (Negative)
== END 2023-12-18 23:59 | disposition home or self-care (01) ==
LOC: LAB 14:10
PROVIDERS: PCP Nurse Practitioner Family; Visit Provider Nurse Practitioner Family
DX: R10.13 Epigastric pain (principal); E11.9 Type 2 diabetes mellitus without complications; Z79.84 Long term (current) use of oral hypoglycemic drugs
CPT/HCPCS: 36415; 80053; 83013; 83036

== ENCOUNTER 2023-12-20 12:28 | Outpatient (CLI) | payer MEDICARE, SELFPAY | END 2023-12-20 14:16 | LOC: ACC 12:29 | PROVIDERS: PCP Nurse Practitioner Family; Visit Provider Nurse Practitioner | DX: Z79.01 Long term (current) use of anticoagulants (principal); Z51.81 Encounter for therapeutic drug level monitoring; I48.0 Paroxysmal atrial fibrillation | CPT/HCPCS: 85610; 99211; G0463 ==

== ENCOUNTER 2023-12-22 16:48 | Outpatient (CLI) | payer MEDICARE, SELFPAY ==
[2023-12-22 17:15] LABS: Basophils # 0.1 K/mm3 (0-0.2); Eosinophils # 0.2 K/mm3 (0.0-0.4); Eosinophils % 3.6 % (0.1-12.0); Hematocrit 43.2 % (42.0-52.0); Hemoglobin 14.8 g/dL (14.1-18.0); Lymphocytes # 2.2 K/mm3 (0.7-4.5); Lymphocytes % 34.4 % (10-50); Mean Corpuscular HGB Conc 34.2 g/dL (31.8-35.4); Mean Corpuscular Hemoglobin 30.9 pg (27.0-31.2); Mean Corpuscular Volume 90.3 fl (80-94); Mean Platelet Volume 8.8 fl (7.4-10.4); Monocytes # 0.3 K/mm3 (0.1-1.0); Monocytes % 4.6 % (1.7-9.3); Neutrophils # 3.7 K/mm3 (1.8-7.8); Neutrophils % 56.5 % (37.0-80.0); Platelet Count 241 K/mm3 (142-424); Red Blood Count 4.78 M/mm3 (4.60-6.20); Red Cell Distribution Width 15.6 % (11.5-17.5); White Blood Count 6.5 K/mm3 (4.8-10.8)
[2023-12-22 17:24] LABS: INR 1.57 (0.9-1.1); Prothrombin Time 16.5 seconds (10.1-12.5)
[2023-12-22 17:48] LABS: Chloride 102 mmol/L (98-107); Potassium 3.9 mmoL/L (3.5-5.1); Sodium 136 mmol/L (136-145)
[2023-12-22 17:51] LABS: Alanine Aminotransferase 45 U/L (12-78); Albumin Level 4.6 g/dl (3.5-5.0); Albumin/Globulin Ratio 1.2 (1.1-1.8); Alkaline Phosphatase 78 U/L (38-126); Anion Gap 16.9 mEq/L (5-15); Aspartate Amino Transferase 46 U/L (17-59); Bilirubin,Total 0.8 mg/dl (0.2-1.3); Blood Urea Nitrogen 14 mg/dl (9-20); Carbon Dioxide 21 mmol/L (22.0-30.0); Estimated Glomerular Filt Rate 73 ml/min (>60); GFR (African American) 88 ML/MIN (>60); Globulin 3.8 g/dL (1.3-3.2); Total Protein,Serum 8.4 g/dl (6.3-8.2)
[2023-12-22 17:52] LABS: Glucose 207 mg/dl (74-100)
[2023-12-22 18:44] LABS: Prostate Specific Ag Screen 0.9 ng/ml (0.0-4.0)
== END 2023-12-22 23:59 | disposition home or self-care (01) ==
LOC: LAB 16:49
PROVIDERS: PCP Nurse Practitioner Family; Visit Provider Nurse Practitioner Family
DX: R36.1 Hematospermia (principal); Z12.5 Encounter for screening for malignant neoplasm of prostate; Z79.01 Long term (current) use of anticoagulants; Z51.81 Encounter for therapeutic drug level monitoring
CPT/HCPCS: 80053; 85025; 85610; 87086; G0103

== ENCOUNTER 2023-12-28 07:46 | Outpatient (CLI) | payer MEDICARE, SELFPAY ==
--- NOTE | 2023-12-28 07:48 | CT_ITS ---
FINAL REPORT TECHNIQUE: After the administration of oral and intravenous contrast, axial images were obtained through the abdomen and pelvis by computed tomography. The study was performed with techniques to keep radiation dose as low as reasonably achievable, (ALARA). Individual dose reduction techniques using automated exposure control or adjustment of mA and/or kV according to the patient's size were employed. CLINICAL HISTORY: Hernia FINDINGS: Abdomen: There is mild atelectasis or scar in the lung bases. There is fatty infiltration of the liver. Mild nonspecific gallbladder wall thickening is identified. The spleen is unremarkable. The adrenals are normal. The pancreas is unremarkable. Left renal stones measure up to 5 mm. There is a mid left renal mass measuring 26 mm. The aorta is normal in caliber. There is no free fluid or adenopathy. Pelvis: The appendix is normal. There is a small umbilical hernia containing fat and a small right inguinal hernia containing fat. The urinary bladder is unremarkable. There is no free fluid or adenopathy. IMPRESSION: Hernias as above. Left renal stones. Nonspecific gallbladder wall thickening. Reviewed, Interpreted and Dictated by Master Estrella III, MD Transcribed by Sherron Cancino Authenticated and [facility]
[2023-12-28] MEDS: SODIUM CHLORIDE 0.9% 10ML SYR (RAD ONLY) 10 ML IV (09:07)
[2023-12-28] MEDS: BARIUM SULFATE(READI-CAT2);450ML BOTTLE 450 ML PO (09:07)
[2023-12-28] MEDS: IOPAMIDOL-370 (76%);100ML BOTTLE 75 ML IV (09:07)
== END 2023-12-28 23:59 | disposition home or self-care (01) ==
LOC: RAD 07:48
PROVIDERS: PCP Nurse Practitioner Family; Visit Provider Surgery
DX: K43.9 Ventral hernia without obstruction or gangrene (principal)
CPT/HCPCS: 74177; Q9967

== ENCOUNTER 2024-01-02 11:27 | Outpatient (CLI) | payer MEDICARE, SELFPAY ==
[2024-01-02 11:44] LABS: PHA INR Fingerstick 1.2 (0.9-1.1)
[2024-01-02 16:05] LABS: Anion Gap 18.9 mEq/L (5-15); Blood Urea Nitrogen 22 mg/dl (9-20); Calcium 10.3 mg/dl (8.4-10.2); Carbon Dioxide 23 mmol/L (22.0-30.0); Chloride 102 mmol/L (98-107); Estimated Glomerular Filt Rate 60 ml/min (>60); GFR (African American) 73 ML/MIN (>60); Glucose 116 mg/dl (74-100); Potassium 3.9 mmoL/L (3.5-5.1); Sodium 140 mmol/L (136-145)
[2024-01-04 08:25] LABS: PSA, Free 0.19 ng/mL; Prostate Specific Ag 0.5 ng/mL (0.0-4.0)
== END 2024-01-02 11:46 | disposition home or self-care (01) ==
LOC: ACC 11:29
PROVIDERS: Internal Medicine; Urology; PCP Nurse Practitioner Family; Visit Provider Nurse Practitioner
DX: Z79.01 Long term (current) use of anticoagulants (principal); R36.1 Hematospermia; I48.0 Paroxysmal atrial fibrillation; I21.4 Non-ST elevation (NSTEMI) myocardial infarction; G47.33 Obstructive sleep apnea (adult) (pediatric); Z99.89 Dependence on other enabling machines and devices; I10 Essential (primary) hypertension
CPT/HCPCS: 36415; 80048; 84153; 84154; 85610; 99211; G0463

== ENCOUNTER 2024-02-20 15:36 | Outpatient (CLI) | payer MEDICARE, SELFPAY ==
[2024-02-20 15:28] LABS: Influenza A, PCR Not Detected (NotDetected); Influenza B, PCR Not Detected (NotDetected)
[2024-02-20 16:21] LABS: Coronavirus 19, PCR Detected (NotDetected)
== END 2024-02-20 23:59 | disposition home or self-care (01) ==
LOC: LAB.DROPOF 15:36
PROVIDERS: PCP Nurse Practitioner Family; Visit Provider Nurse Practitioner Family
DX: R50.9 Fever, unspecified (principal); R05.9 Cough, unspecified; R09.81 Nasal congestion; R52 Pain, unspecified; U07.1 COVID-19
CPT/HCPCS: 87636

== ENCOUNTER 2024-03-05 09:24 | Outpatient (CLI) | payer MEDICARE, SELFPAY ==
--- NOTE | 2024-03-05 09:24 | CT_ITS ---
FINAL REPORT TECHNIQUE: Thin section axial images are obtained through the abdomen and pelvis after intravenous contrast using immediate and delayed image timing. Reconstruction images were obtained from the axial data. Exam was performed using dose reduction techniques. CLINICAL HISTORY: Renal mass protocol COMPARISON: Prior CT dated 12/28/2023. FINDINGS: LUNG BASES: Lung bases are clear. Heart size is normal. LIVER: There is diffuse fatty liver without focal lesion. GALLBLADDER/BILIARY SYSTEM: Gallbladder is present. No gallstones. No biliary dilatation. SPLEEN: Unremarkable. PANCREAS: Unremarkable. ADRENALS: Unremarkable. SYSTEM: No precontrast images were submitted for this examination. There is a stable hypodense left renal lesion, which measures 26 mm in diameter, and 21 Hounsfield units on postcontrast enhanced imaging. This does not enhance between immediate and delayed imaging. There are nonobstructing stones in the left kidney. There is mild wall thickening of the bladder, that may be secondary to chronic outlet obstruction. The prostate is mildly enlarged for age. GI TRACT: No small bowel obstruction or dilatation. A small hiatal hernia is present. Normal appendix. No acute colon abnormality. LYMPH NODES/RETROPERITONEUM/MESENTERY: No lymphadenopathy. No abdominal aortic aneurysm. OTHER: No ascites. Remaining soft tissues without acute abnormality. BONES: No acute osseous abnormality. IMPRESSION: Hypodense left renal lesion, stable since the prior CT of December 27, measuring 26 mm in size. Precontrast enhanced images were not obtained on this examination. This is favored to represent a cyst, although without a precontrast examination this does not constitute a full renal mass protocol exam. Diffuse fatty infiltration of the liver without a focal lesion. Nonobstructing stone present in the left kidney. Reviewed, Interpreted and Dictated by Diane Burton MD Transcribed by Giana Delgado Authenticated and [facility]
[2024-03-05 09:55] LABS: Blood Urea Nitrogen 20 mg/dl (9-20); Estimated Glomerular Filt Rate 55 ml/min (>60); GFR (African American) 67 ML/MIN (>60)
[2024-03-05] MEDS: IOPAMIDOL-370 (76%);100ML BOTTLE 75 ML IV (10:53)
[2024-03-05] MEDS: SODIUM CHLORIDE 0.9% 10ML SYR (RAD ONLY) 10 ML IV (10:53)
== END 2024-03-05 23:59 | disposition home or self-care (01) ==
LOC: RAD 09:24
PROVIDERS: PCP Nurse Practitioner Family; Visit Provider Urology
DX: N28.89 Other specified disorders of kidney and ureter (principal)
CPT/HCPCS: 36415; 74177; 82565; 84520; Q9967

== ENCOUNTER 2024-03-11 14:09 | Outpatient (CLI) | payer MEDICARE, SELFPAY ==
[2024-03-11 12:54] LABS: HDL Cholesterol 44 mg/dl (40-60)
[2024-03-11 12:56] LABS: Hemoglobin A1C 6.1 % (4.0-6.0)
[2024-03-11 13:06] LABS: Direct LDL Cholesterol 35.97 mg/dL (100-129)
[2024-03-11 13:11] LABS: Chol/HDL Ratio 9.9 (1-3.5); Cholesterol 435 mg/dl (140-200); Triglycerides 1445 mg/dl (30-150)
[2024-03-11 13:13] LABS: 25-OH Vitamin D, Total 30.8 ng/mL (30-100)
[2024-03-11 13:44] LABS: Vitamin B12 333 pg/mL (239-931)
== END 2024-03-11 23:59 | disposition home or self-care (01) ==
LOC: LAB.DROPOF 14:11
PROVIDERS: PCP Nurse Practitioner Family; Visit Provider Nurse Practitioner Family
DX: R53.83 Other fatigue (principal); E13.69 Other specified diabetes mellitus with other specified complication; E55.9 Vitamin D deficiency, unspecified; I10 Essential (primary) hypertension; E78.5 Hyperlipidemia, unspecified
CPT/HCPCS: 80061; 82306; 82607; 83036

== ENCOUNTER 2024-03-27 12:38 | Outpatient (CLI) | payer MEDICARE, SELFPAY ==
[2024-03-27 13:47] LABS: PHA INR Fingerstick 1.3 (0.9-1.1)
== END 2024-03-27 13:49 ==
LOC: ACC 12:39
PROVIDERS: PCP Nurse Practitioner Family; Visit Provider Nurse Practitioner
DX: Z79.01 Long term (current) use of anticoagulants (principal); I48.91 Unspecified atrial fibrillation
CPT/HCPCS: 85610; 99211; G0463

== ENCOUNTER 2024-03-27 14:06 | Outpatient (CLI) | payer MEDICARE, SELFPAY ==
[2024-03-27 15:23] LABS: Anion Gap 16.1 mEq/L (5-15); Blood Urea Nitrogen 23 mg/dl (9-20); Calcium 10.4 mg/dl (8.4-10.2); Carbon Dioxide 23 mmol/L (22.0-30.0); Chloride 105 mmol/L (98-107); Estimated Glomerular Filt Rate 66 ml/min (>60); GFR (African American) 80 ML/MIN (>60); Glucose 98 mg/dl (74-100); Potassium 4.1 mmoL/L (3.5-5.1); Sodium 140 mmol/L (136-145)
== END 2024-03-27 23:59 | disposition home or self-care (01) ==
LOC: LAB 14:09
PROVIDERS: PCP Nurse Practitioner Family; Visit Provider Internal Medicine
DX: I10 Essential (primary) hypertension (principal); I48.91 Unspecified atrial fibrillation; Z79.01 Long term (current) use of anticoagulants
CPT/HCPCS: 36415; 80048; 85610; 99211; G0463

== ENCOUNTER 2024-04-18 15:47 | Outpatient (CLI) | payer MEDICARE, SELFPAY ==
[2024-04-18 16:26] LABS: PHA INR Fingerstick 3.4 (0.9-1.1)
== END 2024-04-18 16:28 ==
LOC: ACC 15:48
PROVIDERS: PCP Nurse Practitioner Family; Visit Provider Nurse Practitioner
DX: Z79.01 Long term (current) use of anticoagulants (principal); I48.91 Unspecified atrial fibrillation
CPT/HCPCS: 85610; 99211; G0463

== ENCOUNTER 2024-06-17 11:30 | Outpatient (CLI) | payer MEDICARE, SELFPAY ==
[2024-06-17 11:46] LABS: Microscopic, Urine URINE MICROSCOPIC (MICROSCOPIC)
--- NOTE | 2024-06-17 11:54 | XR_ITS ---
PROCEDURE INFORMATION: Exam: XR Right Elbow Exam date and time: 06/17/2024 12:08 PM Age: 43 years old Clinical indication: Pain; Elbow; Right; Additional info: Right elbow pain and swelling due to injury TECHNIQUE: Imaging protocol: Radiologic exam of the right elbow. Views: 3 or more views. COMPARISON: No relevant prior studies available. FINDINGS: Bones/joints: There is no evidence of acute fracture.There is no evidence of malalignment or dislocation. Osteophyte formation on the olecranon. Degenerative changes in the coronoid process Soft tissues: Normal. IMPRESSION: There is no evidence of acute fracture.There is no evidence of malalignment or dislocation.
[2024-06-17 13:12] LABS: Appearance,Urine CLEAR (Clear); Bilirubin,Urine Negative (Negative); Blood, Urine Negative (Negative); Color,Urine YELLOW (Yellow); Glucose,Urine (UA) Negative (Negative); Ketones,Urine Negative (Negative); Leukocyte Esterase,Urine Negative (Negative); Nitrate,Urine Negative (Negative); PH,Urine 5.5 (5.0-8.5); Protein,Urine Negative (Negative); Specific Gravity, Urine >= 1.030 (1.005-1.030); Urobilinogen,Urine 0.2 EU/dl (0.2)
[2024-06-17 13:19] LABS: Creatinine,Urine Random 255 mg/dL (Not Estab.); Total Protein,Urine Random < 5.0 mg/dL (0.0-12.0)
[2024-06-17 13:23] LABS: Microalbumin/Creatinine Ratio 6.4
[2024-06-17 13:28] LABS: Bacteria,Urine Trace /lpf; Mucus,Urine Trace /lpf; Squamous Epithelial Cell,Urine Occasional #/hpf (0-5); White Blood Cell Casts,Urine Occasional #/lpf (0)
== END 2024-06-17 23:59 | disposition home or self-care (01) ==
PROVIDERS: PCP Nurse Practitioner Family; Visit Provider Nurse Practitioner Family
DX: E13.69 Other specified diabetes mellitus with other specified complication (principal); N28.89 Other specified disorders of kidney and ureter; Z79.01 Long term (current) use of anticoagulants; I10 Essential (primary) hypertension; S59.901A Unspecified injury of right elbow, initial encounter; M25.421 Effusion, right elbow; M25.521 Pain in right elbow; K43.9 Ventral hernia without obstruction or gangrene; G40.909 Epilepsy, unspecified, not intractable, without status epilepticus
CPT/HCPCS: 73080; 81001; 82043; 82570; 84156; 87086

== ENCOUNTER 2024-06-18 11:06 | Outpatient (CLI) | payer MEDICARE, SELFPAY ==
[2024-06-18 12:00] LABS: Basophils # 0.1 K/mm3 (0-0.2); Basophils % 0.7 % (0.1-2.0); Eosinophils # 0.2 K/mm3 (0.0-0.4); Eosinophils % 2.4 % (0.1-12.0); Hematocrit 38.7 % (42.0-52.0); Hemoglobin 13.4 g/dL (14.1-18.0); Lymphocytes # 1.8 K/mm3 (0.7-4.5); Lymphocytes % 27.9 % (10-50); Mean Corpuscular HGB Conc 34.7 g/dL (31.8-35.4); Mean Corpuscular Hemoglobin 32.5 pg (27.0-31.2); Mean Corpuscular Volume 93.6 fl (80-94); Mean Platelet Volume 8.3 fl (7.4-10.4); Monocytes # 0.3 K/mm3 (0.1-1.0); Monocytes % 4.8 % (1.7-9.3); Neutrophils # 4.2 K/mm3 (1.8-7.8); Neutrophils % 64.1 % (37.0-80.0); Platelet Count 226 K/mm3 (142-424); Red Blood Count 4.14 M/mm3 (4.60-6.20); Red Cell Distribution Width 15.4 % (11.5-17.5); White Blood Count 6.6 K/mm3 (4.8-10.8)
[2024-06-18 12:32] LABS: Chloride 103 mmol/L (98-107); Potassium 4.2 mmoL/L (3.5-5.1); Sodium 139 mmol/L (136-145)
[2024-06-18 12:35] LABS: Anion Gap 20.2 mEq/L (5-15); Blood Urea Nitrogen 34 mg/dl (9-20); Carbon Dioxide 20 mmol/L (22.0-30.0); Cholesterol 250 mg/dl (140-200); Estimated Glomerular Filt Rate 41 ml/min (>60); GFR (African American) 50 ML/MIN (>60)
[2024-06-18 12:36] LABS: Calcium 9.6 mg/dl (8.4-10.2); Chol/HDL Ratio 6.3 (1-3.5); Glucose 105 mg/dl (74-100); HDL Cholesterol 40 mg/dl (40-60)
[2024-06-18 12:45] LABS: Triglycerides 694 mg/dl (30-150)
[2024-06-18 12:46] LABS: Direct LDL Cholesterol 53.13 mg/dL (100-129)
[2024-06-18 12:54] LABS: Hemoglobin A1C 5.6 % (4.0-6.0)
[2024-06-18 15:38] LABS: HIV (1&2) Antibody Rapid NONREACTIVE (NONREACTIVE)
[2024-06-19 09:19] LABS: HCV Ab Non Reactive (Non Reactive)
== END 2024-06-18 23:59 | disposition home or self-care (01) ==
LOC: LAB 11:06
PROVIDERS: PCP Nurse Practitioner Family; Visit Provider Nurse Practitioner Family
DX: E13.69 Other specified diabetes mellitus with other specified complication (principal); E78.5 Hyperlipidemia, unspecified; Z11.59 Encounter for screening for other viral diseases; M25.529 Pain in unspecified elbow; Z11.4 Encounter for screening for human immunodeficiency virus [HIV]
CPT/HCPCS: 36415; 80048; 80061; 83036; 84550; 85025; 86803; 87389

== ENCOUNTER 2024-07-04 14:03 | Outpatient (CLI) | payer MEDICARE, SELFPAY ==
[2024-07-04 14:24] LABS: Basophils % 0.4 % (0.1-2.0); Eosinophils # 0.2 K/mm3 (0.0-0.4); Eosinophils % 1.8 % (0.1-12.0); Hematocrit 37.9 % (42.0-52.0); Hemoglobin 13.1 g/dL (14.1-18.0); Lymphocytes # 2.9 K/mm3 (0.7-4.5); Lymphocytes % 31.8 % (10-50); Mean Corpuscular HGB Conc 34.6 g/dL (31.8-35.4); Mean Corpuscular Hemoglobin 32.2 pg (27.0-31.2); Mean Corpuscular Volume 92.9 fl (80-94); Mean Platelet Volume 7.9 fl (7.4-10.4); Monocytes # 0.5 K/mm3 (0.1-1.0); Monocytes % 5.5 % (1.7-9.3); Neutrophils # 5.6 K/mm3 (1.8-7.8); Neutrophils % 60.4 % (37.0-80.0); Platelet Count 207 K/mm3 (142-424); Red Blood Count 4.08 M/mm3 (4.60-6.20); Red Cell Distribution Width 15.5 % (11.5-17.5); White Blood Count 9.2 K/mm3 (4.8-10.8)
[2024-07-04 14:58] LABS: Alanine Aminotransferase 25 U/L (12-78); Albumin Level 4.5 g/dl (3.5-5.0); Alkaline Phosphatase 68 U/L (38-126); Anion Gap 14.1 mEq/L (5-15); Aspartate Amino Transferase 22 U/L (17-59); Bilirubin,Direct 0.2 mg/dl (0.0-0.4); Bilirubin,Indirect 0.5 mg/dL (0.0-0.9); Bilirubin,Total 0.7 mg/dl (0.2-1.3); Bilirubin,Unconjugated 0.4 mg/dL (0.0-1.1); Blood Urea Nitrogen 20 mg/dl (9-20); Calcium 9.5 mg/dl (8.4-10.2); Carbon Dioxide 27 mmol/L (22.0-30.0); Chloride 101 mmol/L (98-107); Chol/HDL Ratio 5.9 (1-3.5); Cholesterol 249 mg/dl (140-200); Estimated Glomerular Filt Rate 51 ml/min (>60); GFR (African American) 62 ML/MIN (>60); Glucose 81 mg/dl (74-100); HDL Cholesterol 42 mg/dl (40-60); Magnesium 1.5 mg/dl (1.6-2.3); Potassium 4.1 mmoL/L (3.5-5.1); Sodium 138 mmol/L (136-145); Total Protein,Serum 7.5 g/dl (6.3-8.2)
[2024-07-04 15:11] LABS: Triglycerides 734 mg/dl (30-150)
[2024-07-04 15:13] LABS: Free T4 (Free Thyroxine) 0.76 ng/dl (0.78-2.19)
[2024-07-04 15:28] LABS: Thyroid Stimulating Hormone 1.21 uIU/mL (0.465-4.68)
== END 2024-07-04 23:59 | disposition home or self-care (01) ==
LOC: LAB 14:04
PROVIDERS: PCP Nurse Practitioner Family; Visit Provider Internal Medicine
DX: I10 Essential (primary) hypertension (principal); E13.69 Other specified diabetes mellitus with other specified complication; G47.33 Obstructive sleep apnea (adult) (pediatric); Z99.89 Dependence on other enabling machines and devices; I21.4 Non-ST elevation (NSTEMI) myocardial infarction; I48.0 Paroxysmal atrial fibrillation
CPT/HCPCS: 36415; 80048; 80061; 80076; 83735; 84439; 84443; 85025

== ENCOUNTER 2024-09-12 10:21 | Outpatient (CLI) | payer MEDICARE, SELFPAY ==
[2024-09-12 10:51] LABS: Microscopic, Urine URINE MICROSCOPIC (MICROSCOPIC)
[2024-09-12 11:19] LABS: Basophils % 0.4 % (0.1-2.0); Eosinophils # 0.2 K/mm3 (0.0-0.4); Eosinophils % 2.7 % (0.1-12.0); Hematocrit 39.5 % (42.0-52.0); Hemoglobin 13.3 g/dL (14.1-18.0); Lymphocytes # 1.8 K/mm3 (0.7-4.5); Lymphocytes % 32.3 % (10-50); Mean Corpuscular HGB Conc 33.7 g/dL (31.8-35.4); Mean Corpuscular Hemoglobin 30.6 pg (27.0-31.2); Mean Platelet Volume 10.9 fl (7.4-10.4); Monocytes # 0.4 K/mm3 (0.1-1.0); Monocytes % 7.1 % (1.7-9.3); Neutrophils # 3.2 K/mm3 (1.8-7.8); Neutrophils % 57.3 % (37.0-80.0); Platelet Count 225 K/mm3 (142-424); Red Blood Count 4.34 M/mm3 (4.60-6.20); Red Cell Distribution Width 14.7 % (11.5-17.5); White Blood Count 5.5 K/mm3 (4.8-10.8)
[2024-09-12 11:20] LABS: Appearance,Urine CLEAR (Clear); Bilirubin,Urine Negative (Negative); Blood, Urine TRACE-I (Negative); Color,Urine YELLOW (Yellow); Glucose,Urine (UA) Negative (Negative); Ketones,Urine Negative (Negative); Leukocyte Esterase,Urine Negative (Negative); Nitrate,Urine Negative (Negative); Protein,Urine Negative (Negative); Urobilinogen,Urine 0.2 EU/dl (0.2)
[2024-09-12 11:28] LABS: Bacteria,Urine 1+ /lpf; Creatinine,Urine Random 183 mg/dL (Not Estab.); Squamous Epithelial Cell,Urine Occasional #/hpf (0-5); WBC,Urine Occasional #/hpf (0-3)
[2024-09-12 11:32] LABS: Hemoglobin A1C 5.4 % (4.0-6.0); Microalbumin/Creatinine Ratio 20.8
[2024-09-12 11:48] LABS: Alanine Aminotransferase 22 U/L (12-78); Albumin Level 4.8 g/dl (3.5-5.0); Albumin/Globulin Ratio 1.6 (1.1-1.8); Alkaline Phosphatase 80 U/L (38-126); Anion Gap 15.5 mEq/L (5-15); Aspartate Amino Transferase 28 U/L (17-59); Bilirubin,Total 0.7 mg/dl (0.2-1.3); Blood Urea Nitrogen 15 mg/dl (9-20); Calcium 9.6 mg/dl (8.4-10.2); Carbon Dioxide 32 mmol/L (22.0-30.0); Chloride 99 mmol/L (98-107); Estimated Glomerular Filt Rate 72 ml/min (>60); GFR (African American) 88 ML/MIN (>60); Glucose 86 mg/dl (74-100); HDL Cholesterol 36 mg/dl (40-60); Magnesium 1.5 mg/dl (1.6-2.3); Potassium 3.5 mmoL/L (3.5-5.1); Sodium 143 mmol/L (136-145); Total Protein,Serum 7.8 g/dl (6.3-8.2)
[2024-09-12 11:59] LABS: Chol/HDL Ratio 10.9 (1-3.5); Cholesterol 393 mg/dl (140-200); Direct LDL Cholesterol 54.37 mg/dL (100-129); Triglycerides 1165 mg/dl (30-150)
[2024-09-12 12:04] LABS: 25-OH Vitamin D, Total 18.3 ng/mL (30-100)
[2024-09-12 12:05] LABS: Free T4 (Free Thyroxine) 0.73 ng/dl (0.78-2.19)
[2024-09-12 12:21] LABS: Thyroid Stimulating Hormone 1.16 uIU/mL (0.465-4.68)
[2024-09-12 12:40] LABS: Vitamin B12 332 pg/mL (239-931)
[2024-09-12 12:44] LABS: Iron 90 ug/dL (49-181)
[2024-09-12 12:55] LABS: Total Iron Binding Capacity 298 ug/dL (261-462)
[2024-09-12 13:23] LABS: Ferritin 29.1 ng/ml (17.9-464)
== END 2024-09-12 23:59 | disposition home or self-care (01) ==
PROVIDERS: PCP Nurse Practitioner Family; Visit Provider Nurse Practitioner Family
DX: M10.9 Gout, unspecified (principal); I10 Essential (primary) hypertension; E13.69 Other specified diabetes mellitus with other specified complication; E83.42 Hypomagnesemia; G47.33 Obstructive sleep apnea (adult) (pediatric); R79.89 Other specified abnormal findings of blood chemistry; R53.83 Other fatigue; D64.9 Anemia, unspecified; E53.8 Deficiency of other specified B group vitamins
CPT/HCPCS: 36415; 80053; 80061; 81001; 82043; 82306; 82570; 82607; 82728; 83036; 83540; 83550; 83735; 84156; 84439; 84443; 84550; 85025; 87086

== ENCOUNTER 2024-09-20 10:01 | Outpatient (CLI) | payer MEDICARE, SELFPAY ==
[2024-09-20 11:49] LABS: PHA INR Fingerstick 1.8 (0.9-1.1)
== END 2024-09-20 12:54 ==
LOC: ACC 10:04
PROVIDERS: PCP Nurse Practitioner Family; Visit Provider Nurse Practitioner
DX: Z79.01 Long term (current) use of anticoagulants (principal); I48.91 Unspecified atrial fibrillation
CPT/HCPCS: 85610; 99211; G0463

== ENCOUNTER 2024-09-26 06:59 | Day surgery (SDC) | payer MEDICARE, SELFPAY ==
[2024-09-24 10:29] VITALS: BMI 32.8
[2024-09-24 11:17] VITALS: BMI 32.4
[2024-09-26] MEDS: LACTATED RINGERS 1000ML 1,000 ML 50 ML IV (07:43)
[2024-09-26 07:46] VITALS: BP 153/107; PULSE 82; RESP 18; TEMP 36.3; O2SAT 98
--- NOTE | 2024-09-26 08:02 | EXP.ANES.CKL ---
[facility] Disclaimer: The information contained in this section may have been updated after the patient was seen, as this information can be updated by other users. Medical History Encounter for hepatitis C screening test for low risk patient Screening for HIV (human immunodeficiency virus) Right elbow pain Swelling of right elbow joint Injury of right elbow Encounter for pre-operative cardiovascular clearance Elbow pain Headache, migraine Left otitis media Acute effusion of right ear Viral respiratory illness BHAKTI (acute kidney injury) Abdominal pain BHAKTI (acute kidney injury) Paroxysmal atrial fibrillation MAVIS on CPAP GERD (gastroesophageal reflux disease) Seizure disorder Diabetes Kidney stones Hypertension Surgical History History of cystoscopy History of lithotripsy H/O wrist surgery H/O shoulder surgery Family History Mother Hypertension Diabetes Father Stroke Other Seizures Social History Smoking Status: Never smoker alcohol intake: never substance use type: denies use current occupational status: disabled Travel in the last 8 weeks: None [facility] Anesthesia Checklist Patient Identification Patient Identification: Arm Band and Family Structural Data Admitted From: Home Planned Operative Procedure/s: colonoscopy Consent for Planned Operative Procedure(s) Verified: Yes Verified Documents: Surgical Consent, History and Physical and Cardiac Clearance NPO Status Verified Time NPO: 04:30 (finished prep) Additional verifications Anesthesia Reactions: No Airway Assessment Mallampati Score:: Class III C-Spine Mobility Assessed: Yes TMJ Mobility Assessed: Yes Dentition: Good Dentition Neurological Assessment Level of Consciousness: Awake, Alert and Appropriate Anesthesia Plan Anesthesia Risk discussed: Yes Anesthesia Plan: Verified ASA Class: III Anesthesia Type: MAC
[2024-09-26 08:03] LABS: POC Glucose,Bedside 93 (70-110)
--- NOTE | 2024-09-26 08:33 | P.HP_ITS ---
History of Present Illness *Admission Date: 09/26/24 *Reason for visit:: Screening for colon cancer *History of present illness: Mr. Kurtz is a 44-year-old gentleman who is here for initial screening colonoscopy. The examination is deemed medically necessary for screening colonoscopy. The patient has been seen, interviewed and examined prior to the procedure by both myself and the anesthesia provider. [facility] Disclaimer: The information contained in this section may have been updated after the patient was seen, as this information can be updated by other users. Medical History (Updated 09/26/24 @ 08:34 by Kb Schuler II, MD) Encounter for hepatitis C screening test for low risk patient Screening for HIV (human immunodeficiency virus) Right elbow pain Swelling of right elbow joint Injury of right elbow Encounter for pre-operative cardiovascular clearance Elbow pain Headache, migraine Left otitis media Acute effusion of right ear Viral respiratory illness BHAKTI (acute kidney injury) Abdominal pain BHAKTI (acute kidney injury) Paroxysmal atrial fibrillation MAVIS on CPAP GERD (gastroesophageal reflux disease) Seizure disorder Diabetes Kidney stones Hypertension Surgical History History of cystoscopy History of lithotripsy H/O wrist surgery H/O shoulder surgery Family History Mother Hypertension Diabetes Father Stroke Other Seizures Social History (Updated 09/26/24 @ 08:03 by Osmin Esquivel CRNA) Smoking Status: Never smoker alcohol intake: never substance use type: denies use current occupational status: disabled Travel in the last 8 weeks: None Have you lived/traveled outside US in past 30 days?: No Contact w/someone who lives/traveled outside US past 30 days?: No Exposure to someone with infectious disease in past 14 days?: No Do you have a fever (greater than 100.4 F or 38 C)?: No Have you tested positive for COVID-19: No Exposed to someone with COVID-19 in past 14 days?: No Do you have a sore throat?: No Do you have a cough?: No Do you have any weakness?: No Do you have any diarrhea?: No Are you experiencing any unusual bleeding?: No Do you have any muscle aches/pain?: No Do you have any abdominal pain?: No Are you experiencing loss of taste or smell?: No Other Medical History Have you received the Flu Vaccine for this season: No Have you received the Pneumonia Vaccine: Yes Review of Systems Review of Systems Review of systems (narrative): Negative *Cardiovascular Comments: Negative *Gastrointestinal Comments: Negative *Genitourinary Comments: Negative *Musculoskeletal Comments: Negative *Neurologic Comments: Negative Meds Home Medications and Allergies Home Medications ?Medication ?Instructions ?Recorded ?Confirmed ?Type ammonium lactate 12 % topical cream 1 applic topical BID dry skin, 09/03/24 09/26/24 Rx callus care #385 grams ciclopirox 8 % topical solution 1 applic topical DAILY toenail 09/03/24 09/26/24 Rx fungus 3 months #6.6 mL atogepant 60 mg tablet (Qulipta) 60 mg PO DAILY #90 tabs 09/04/24 09/26/24 Rx atorvastatin 80 mg tablet 80 mg PO DAILY #90 tabs 09/04/24 09/26/24 Rx carvedilol 25 mg tablet 25 mg PO BID #180 tabs 09/04/24 09/26/24 Rx chlorthalidone 25 mg tablet 25 mg PO DAILY #90 tabs 09/04/24 09/26/24 Rx diltiazem HCl 240 mg 240 mg PO BID #180 caps 09/04/24 09/26/24 Rx capsule,extended release 24 hr fenofibrate nanocrystallized 145 145 mg PO DAILY #90 tabs 09/04/24 09/26/24 Rx mg tablet hydralazine 25 mg tablet 25 mg PO DAILY #90 tabs 09/04/24 09/26/24 Rx irbesartan 300 mg tablet 300 mg PO DAILY #90 tabs 09/04/24 09/26/24 Rx metformin 500 mg tablet 500 mg PO BID Diabetes #180 tabs 09/04/24 09/26/24 Rx oxcarbazepine 300 mg tablet 600 mg (2 x 300 mg) PO BID 09/04/24 09/26/24 Rx seizures #360 tabs spironolactone 50 mg tablet 50 mg PO DAILY #90 tabs 09/04/24 09/26/24 Rx (Aldactone) warfarin 7.5 mg tablet 7.5 mg PO DAILY #90 tabs 09/04/24 09/26/24 Rx allopurinol 300 mg tablet 300 mg PO DAILY #90 tabs 09/13/24 09/26/24 Rx cholecalciferol (vitamin D3) 1,250 1,250 mcg PO WEEKLY #12 caps 09/13/24 09/26/24 Rx mcg (50,000 unit) capsule ferrous sulfate 325 mg (65 mg 325 mg PO BID #180 tabs 09/13/24 09/26/24 Rx iron) tablet icosapent ethyl 1 gram capsule 2 g (2 x 1 gram) PO BID #360 caps 09/13/24 09/26/24 Rx (Vascepa) magnesium oxide 400 mg PO DAILY #90 tabs 09/13/24 09/26/24 Rx mecobalamin (vitamin B12) 500 mcg 1,000 mcg (2 x 500 mcg) PO DAILY 09/13/24 09/26/24 Rx chewable tablet #180 tabs sodium,potassium,mag sulfates 17.5 See Rx Instructions PO .COMPLEX 09/16/24 09/26/24 Rx gram-3.13 gram-1.6 gram oral soln #354 mL (Suprep Bowel Prep Kit) New Prescriptions to Start Prescriptions: Allergies Allergy/AdvReac Type Severity Reaction Status Date / Time amlodipine (From [facility]) Allergy Mild swelling Verified 09/26/24 07:45 isosorbide Allergy Mild headache Verified 09/26/24 07:45 and weakness Exam Data for Last 24 hours Vital signs and Labs for Last 24 Hours: Temp Pulse Resp BP Pulse Ox O2 Del Method 97.4 F L 82 18 153/107 H 98 Room Air 09/26/24 07:46 09/26/24 07:46 09/26/24 07:46 09/26/24 07:46 09/26/24 07:46 09/26/24 07:46 Laboratory Results - last 24 hr 09/26/24 07:53: POC Glucose 93 I & O for Last 24 hours: Intake & Output 09/23/24 09/24/24 09/25/24 09/26/24 23:59 23:59 23:59 23:59 Weight 239 lb *Routine HEENT Exam Head: Present normocephalic Eye: Present EOMI and PERRL ENT: Present mucous membranes moist *Routine Neck Exam Neck: Present supple *Routine Respiratory Exam Respiratory: Present CTA bilaterally *Routine Cardiovascular Exam Cardiovascular: Present RRR *Routine Abdominal Exam Abdominal: Present soft and normoactive bowel sounds; Absent tenderness *Routine Rectal Exam Rectal:: deferred *Routine Genitalia Exam Genitalia:: deferred *Routine Extremities Exam Extremities: Absent cyanosis, clubbing or edema *Routine Skin Exam Skin: Present warm; Absent rash *Routine Neurological Exam Neurological: Present alert and oriented X3 Assessment and Plan *Assessment and plan (1) Screening for colon cancer: Status: Acute Category: Medical Code(s): Z12.11 - Encounter for screening for malignant neoplasm of colon Plan A/P: 1. Screening for colon cancer is the preprocedural diagnosis. The patient will be anesthetized/sedated using MAC sedation. The patient has been seen and examined. Cardiac and lung assessment prior to the examination is stable. Proceed with planned screening colonoscopy
[2024-09-26 08:42] VITALS: O2SAT 99
--- NOTE | 2024-09-26 08:45 | HMH.PROCNOTE ---
[facility] Procedure Note Date: 09/26/24 Time: 09:04 Procedure Note:: Colonoscopy Procedure Report: Colonoscopy with cold snare polypectomy Endoscopist: Kb Schuler II, MD Referring physician: HOLLY Wu Date of Procedure: September 26, 2024 Equipment: Olympus 190 variable stiffness pediatric colonoscope Sedation: MAC sedation Indication: Mr. Kurtz is a 44-year-old gentleman who is here for initial screening colonoscopy. He reports no abdominal pain, weight loss, or rectal bleeding or family history of colon cancer. He did start Ozempic in March trying to lose weight. He has had some bloating for years. He does have some variability in his bowel movements but has a bowel movement 3 times a week and does have some straining and hard stools. He did try to use Citrucel and this caused more constipation. Procedure: Prior to the procedure, a history and physical exam was performed, and patient's medications and allergies were reviewed. The risks, benefits and alternatives of the sedation and procedure were discussed with the patient. All questions were answered and informed consent was obtained. The patient was brought to the procedure room. Patient identification and proposed procedure were verified by the physician and the nurse. The patient was placed in a left lateral decubitus position and the scope was passed under direct vision. Throughout the procedure, the patient's blood pressure, pulse, and oxygen saturations were monitored continuously. The colonoscopy was accomplished without difficulty. The patient tolerated the procedure well. Findings: On digital rectal examination there was normal rectal tone. There were no external hemorrhoids. The prostate was 2+, smooth, soft, symmetric without nodules. The colonoscope was introduced through the anal canal to the rectum and advanced to the cecum. The ileocecal valve and appendiceal orifice were identified. The scope was advanced a short distance into the ileum which appeared grossly normal. The scope was then withdrawn into the colon. There were 3 polyps (descending x 1 (5 mm), sigmoid x 1 (4 mm) and rectum x 1 (2 mm)). These were all removed via cold snare polypectomy. The remaining cecum, ascending, transverse, descending, sigmoid and rectum were grossly normal. There were no mucosal abnormalities identified. Upon retroflexion within the rectum there were grade 2 internal hemorrhoids. The preparation was excellent throughout with Lander Preparation Score of 9. The cecal time was 14 minutes. Impression: 1. Diminutive colonic polyps x 3 2. Grade 2 internal hemorrhoids Plan: I will follow-up the polyp histology and recommend repeat surveillance colonoscopy again in 5 years if the polyps are adenomatous. I am going to initiate Trulance or Linzess.
[2024-09-26 09:08] VITALS: BP 125/81; PULSE 88; RESP 20; TEMP 36.1; O2SAT 93
[2024-09-26 09:18] VITALS: BP 137/82; PULSE 78; RESP 18; O2SAT 93
[2024-09-26 09:28] VITALS: BP 137/82; PULSE 82; RESP 18; O2SAT 95
[2024-09-26 09:38] VITALS: BP 131/49; PULSE 81; RESP 18; O2SAT 95
== END 2024-09-26 09:38 | disposition home or self-care (01) ==
PROVIDERS: PCP Nurse Practitioner Family; Visit Provider Internal Medicine Gastroenterology
PROC: 0DJD8ZZ Inspection of Lower Intestinal Tract, Via Natural or Artificial Opening Endoscopic (ICD-10-PCS; CPT 45378; principal; 2024-09-26 08:30)
DX: K59.04 Chronic idiopathic constipation (principal); Z12.11 Encounter for screening for malignant neoplasm of colon; K63.5 Polyp of colon; K64.1 Second degree hemorrhoids; E11.9 Type 2 diabetes mellitus without complications; Z79.84 Long term (current) use of oral hypoglycemic drugs
CPT/HCPCS: 45385; 82962; 88305; J7120

== ENCOUNTER 2024-10-07 13:26 | Outpatient (CLI) | payer MEDICARE, SELFPAY ==
[2024-10-07 15:00] LABS: Albumin Level 5.1 g/dl (3.5-5.0)
[2024-10-07 15:03] LABS: Alanine Aminotransferase 21 U/L (12-78); Alkaline Phosphatase 59 U/L (38-126); Aspartate Amino Transferase 23 U/L (17-59); Bilirubin,Direct 0.1 mg/dl (0.0-0.4); Bilirubin,Indirect 0.3 mg/dL (0.0-0.9); Bilirubin,Total 0.4 mg/dl (0.2-1.3); Bilirubin,Unconjugated 0.3 mg/dL (0.0-1.1); Chol/HDL Ratio 5.4 (1-3.5); Cholesterol 214 mg/dl (140-200); HDL Cholesterol 40 mg/dl (40-60); Total Protein,Serum 8.2 g/dl (6.3-8.2)
[2024-10-07 15:14] LABS: Direct LDL Cholesterol 76.14 mg/dL (100-129); Triglycerides 416 mg/dl (30-150)
== END 2024-10-07 23:59 | disposition home or self-care (01) ==
LOC: LAB 13:26
PROVIDERS: PCP Nurse Practitioner Family; Visit Provider Internal Medicine
DX: R07.9 Chest pain, unspecified (principal); E78.1 Pure hyperglyceridemia; E78.5 Hyperlipidemia, unspecified
CPT/HCPCS: 36415; 80061; 80076

== ENCOUNTER 2024-10-14 11:15 | Outpatient (CLI) | payer MEDICARE, SELFPAY ==
[2024-10-14 13:50] LABS: Chloride 101 mmol/L (98-107); Potassium 4.3 mmoL/L (3.5-5.1); Sodium 138 mmol/L (136-145)
[2024-10-14 13:53] LABS: Anion Gap 15.3 mEq/L (5-15); Blood Urea Nitrogen 27 mg/dl (9-20); Carbon Dioxide 26 mmol/L (22.0-30.0); Estimated Glomerular Filt Rate 47 ml/min (>60); GFR (African American) 57 ML/MIN (>60); Glucose 109 mg/dl (74-100)
== END 2024-10-14 23:59 | disposition home or self-care (01) ==
LOC: LAB 11:15
PROVIDERS: PCP Nurse Practitioner Family; Visit Provider Nurse Practitioner Family
DX: N17.9 Acute kidney failure, unspecified (principal); I48.0 Paroxysmal atrial fibrillation; I95.9 Hypotension, unspecified
CPT/HCPCS: 36415; 80048

== ENCOUNTER 2024-12-20 10:25 | Outpatient (CLI) | payer MEDICARE, SELFPAY ==
--- OUTSIDE RECORDS SUMMARY | 2024-12-20 10:27 | XMS_ITS | Clinical Summary ---
Author Organization [facility] , [facility] Address [address] [place] [address] Phone Care Team Providers Care Poultry Buyer Name Role Phone Marly EMERY, Micahel Unavailable [phone] Jethro Carlsno MD Unavailable [phone] Reason for Referral Date Encounter Description Provider Reason for Referral 03/03/22 Non Physician Specified Jethro Carlson MD R eferral To Physician Reason for Visit and Chief Complaint The Chief Complaint is: L knee pain Problems Includes: Problems addressed during this encounter and other active Problems Current Visit Onset Date Resolved Date Provider Alicia valencia Status Joint Pain in the Left Knee 03/03/2022 Jethro Carlson MD Active Last Documented On 2 9:10AM ; [facility], [facility] Plan of Treatment WE WILL START HIM ON ANTI-INFLAMMATORY MEDICATION MOBIC, SEND HIM FOR PHYSICAL THERAPY AND FOLLOW UP IN 3-4 WEEKS FOR RECHECK. IF HE HAS NO IMPROVEMENT AT THAT TIME WE WILL CONSIDER A MRI TO RULE OUT A MENISCUS TEAR - Last Documented On 03/17/2022 10:59AM ; [facility], [facility] Pending Tests Order Diagnosis Results Due Ordering P rovider Therapy - Physical Therapy Knee 03/03/22 Jethro Carlson MD Last Documented On 2 10:59AM ; [facility], [facility] Instructions to patient Lose weight Last Documented On 2 9:12AM ; [facility], [facility] Assessments Includes: Assessments from this encounter Findings 41 YEAR OLD HERE FOR INITIAL VISIT ON LEFT KNEE PAIN, HE STATES THIS APIN STARTED ABOUT 3 MONTHS AGO. HE STATES THE pain GET WORSE WITH INCREASED ACTIVITY LIKE STEPS OR PROLONGED WALKING. HE REPORTS CLICKING AND POPPING IN THE KNEE. HE DENIES ANY PAIN IN THE HIP OR GROIN AREA HE DENIES ANY PREVIOUS INJURY OR TRAUMA TO THIS KNEE. HE HAS NOT HAD INJECTION OR THERAPY ON THIS KNEE AND HAS NOT TRIED ANY MEDICATIONS - Last Documented On 03/17/2022 10:59AM ; [facility], [facility] PHYSICAL EXAM - Last Documented On 03/17/2022 10:59AM ; [facility], [facility] CONSTITUTIONAL: Well developed, well groomed, well nourished patient in no acute distress who appears stated age, height and weight. - Last Documented On 03/17/2022 10:59AM ; [facility], [facility] PSYCHIATRIC: The patient is alert and oriented to person, place, date and situation. Mood and affect are normal for current situation. - Last Documented On 03/17/2022 10:59AM ; [facility], [facility] NEUROLOGICAL: Sensation normal bilateral upper and lower extremities. - Last Documented On 03/17/2022 10:59AM ; [facility], [facility] LYMPHATIC: No pitting edema noted in the lower extremities. - Last Documented On 03/17/2022 10:59AM ; [facility], [facility] SKIN: No lesions noted on upper or lower extremities. Skin is dry, warm and with normal turgor. - Last Documented On 03/17/2022 10:59AM ; [facility], [facility] VASCULAR: No swelling in upper or lower extremities other than described below in extremity exam. Dorsalis Pedis Pulses normal in lower extremities. - Last Documented On 03/17/2022 10:59AM ; [facility], [facility] GAIT AND STATION: Normal gait without assistive devices. Station normal. - Last Documented On 03/17/2022 10:59AM ; [facility], [facility] LEFT KNEE: No Deformity. Normal Q angle. No discoloration. No Atrophy. tenderness to palpation AT PATELLA TENDON AND MEDIAL JOINT LINE . MILD PATELLA crepitation. No effusion. Active Range of Motion: Extension 0 degrees, Flexion 135 degrees. Passive Range of Motion: not limited. Strength: 5/5 quadriceps. 5/5 Hamstrings. Negative Shae's. Negative posterior drawer. Negative valgus instability. Negative varus instability. Negative Medial McMurrays. Negative Lateral McMurrays. Normal patella mobility. Negative patella apprehension. - Last Documented On 03/17/2022 10:59AM ; [facility], [facility] RIGHT KNEE: No Deformity. Normal Q angle. No discoloration. No Atrophy. No tenderness to palpation. No crepitation. No effusion. Active Range of Motion: Extension 0 degrees, Flexion 135 degrees. Passive Range of Motion: not limited. Strength: 5/5 quadriceps. 5/5 Hamstrings. Negative Shae's. Negative posterior drawer. Negative valgus instability. Negative varus instability. Negative Medial McMurrays. Negative Lateral McMurrays. Normal patella mobility. Negative patella apprehension. - Last Documented On 03/17/2022 10:59AM ; [facility] Instructions Includes: Instructions from this encounter Instructions to patient Lose weight Last Documented On 2 9:12AM ; [facility] Medical Equipment - Implanted Devices Includes: Current Devices No Medical Equipment Recorded Medications Includes: Medications discussed during this encounter and other current Medications New / Renewed during this visit Jethro Carlson MD on 03/03/2022 Meloxicam 15 MG Oral Tablet Provider: Jethro Carlson MD 30 day supply: 30 tablet, 0 refills Diagnosis: once a day Pharmacy: [facility]/pharmacy #[id number] - [address] [place], [place], [address] - Last Documented On 2 9:53AM By Carin Boudreaux ; [facility] Current Medications (continue as prescribed) Spironolactone 25 MG Oral Tablet 01/03/2022 Provider : Diagnosis: Last Documented On 2 9:10AM By Teresa [facility], [facility] Omeprazole 20 MG Oral Capsul e Delayed Release 12/06/2021 Provider: Michael Luke MD Diagnosis: Last Documented On 2 9:10AM By Teresa [facility], [facility] Fenofibric Acid 135 MG Oral Capsule Delayed Release 10/29/2021 Provider: Michael Luke MD Diagnosis: Last Documented On 2 9:10AM By Teresa [facility], [facility] hydrALAZINE HCl 50 MG Oral Tablet 10/28/2021 Provide r: Michael Luke MD Diagnosis: Last Documented On 2 9:10AM By Teresa Cheatham ; [facility] Dilt-XR 240 MG Oral Capsule Extended Release 24 Hour 10/27/2021 Provider: Michael Luke MD Diagnosis: Last Documented On 2 9:10AM By Teresa Cheatham ; [facility] Labetalol HCl 200 MG Oral Tablet 10/27/2021 Provider : Michael Luke MD Diagnosis: Last Documented On 2 9:10AM By Teresa Cheatham ; [facility] OXcarbazepine 300 MG Oral Tablet 10/27/2021 Provider : Michael Luke MD Diagnosis: Last Documented On 2 9:10AM By Teresa Cheatham ; [facility] Potassium Chloride Elsi ER 2 0 MEQ Oral Tablet Extended Release 10/27/2021 Provider: Michael valentine MD Diagnosis: Last Documented On 2 9:10AM By Teresa Cheatham ; [facility] Medications Administered Includes: Administered Medications from this encounter No Administered Medications Recorded Vital Signs Includes: Vital Signs from this encounter Vital Name 03/03/2022 09:34A Blood Pressure Sitting (mmHg) 188/117 Pulse Rate-Sitting (bpm) 80 Height (in) 72 Weight (lb) 256 Body Mass Index (kg/m2) 34.7 Body Surface Area (m2) 2.4 Note: saw Last Documented: On 03/03/2022 9:35AM ; [facility] Results Includes: Results discussed during this encounter No Results Recorded For Specified Dates History of Present Illness Includes: History of Present Illness from this encounter MARION Kurtz is a 41 year old male. - Symptoms popping. - Allergy list reviewed - Problem list reviewed - Medication list reviewed with patient - Previous history of new onset pain Injury is not work related or an automotive accident - Pain is occasional (25% of the time) - Patient pain level from 1-10: 6 - Yes, previous treatment. - History of Physical Therapy - History of Home Exercise - History of Injections Social History Description Last Updated No caffeine use 03/03/2022 Last Documented On 2 10:59AM ; [facility] No recent change in diet 03/03/2022 Last Documented On 2 10:59AM ; [facility], [facility] Not a current smoker. 03/03/2022 Last Documented On 2 10:59AM ; [facility], [facility] Not exercising regularly 03/03/2022 Last Documented On 2 10:59AM ; [facility] Not using alcohol 03/03/2022 Last Documented On 2 10:59AM ; [facility], [facility] Not using drugs 03/03/2022 Last Documented On 2 10:59AM ; [facility], [facility] Non-smoker 03/03/2022 Last Documented On 2 10:59AM ; [facility], [facility] Not a smoker 03/03/2022 Last Documented On 2 10:59AM ; [facility], [facility] Smoking Status Unknown Procedures and Surgical History Includes: Procedures from this encounter Procedures Code Diagnosis Performing Provider Service L ocation Service Date use of tobacco assessment performed 1000F Last Documented On 2 9:12AM ; [facility], [facility] patient not screened for future fall risk 3288F Last Documented On 2 9:12AM ; [facility], [facility] follow-up visit not in one month with PC P for elevated BP Last Documented On 2 9:12AM ; [facility], [facility] no referral to physician Last Documented On 2 9:12AM ; [facility], [facility] Medical History Includes: Medical History addressed during this encounter Description Last Updated No recent immunization for flu 2 Last Documented On 2 10:59AM ; [facility], [facility] No recent immunization for pneumococcal pneumonia 03/03/2022 Last Documented On 2 10:59AM ; [facility], [facility] Family History Includes: Family History addressed during this encounter No Family History Recorded Review of Systems Includes: Review of Systems from this encounter No Review of Systems Recorded Mental Status Includes: Mental Status from this encounter No Mental Status Recorded Functional Status Includes: Functional Status from this encounter No Functional Status Recorded Physical Exam Includes: Physical Exam from this encounter Allergies Includes: Active Allergies No Known Allergies Encounters Encounter Provider Location Date Check-In Time Check-Out Time Diagnosis Non Physician Specified Jethro Carlson MD [facility] B 03/03/20 22 9:18AM 9:46AM Insurance Includes: Active Insurance Policies Plan Name Member ID Group # Subscriber Relationship Effect roma Dates 1 - [employer] [id number] Dewayne [place] 2021 - Unknown Clinical Notes Includes: Clinical Notes from this encounter No Clinical Notes Recorded
--- OUTSIDE RECORDS SUMMARY | 2024-12-20 10:27 | XMS_ITS | Data Portability ---
Author Organization [facility] & [place] [facility] Address [address] [place] [id number] Assessment Encounter Date Assessment Date Assessment LastModified by Organization Details LastModified Time 01/04/2024 01/04/2024 Additional Notes : Weigh-Ins Needed: 3; would like to complete with [facility] Recommendations: 1. Follow 2-4 hr rule for meal timing 2. 64 oz noncarbonated, noncaffeinated, sugar-free fluids/day 3. Increase physical activity to 30+ minutes 3-4x/week 4. Begin using tracking genet to assess avg diet intake, track daily intake 4+ times/week A total of 15 minutes was spent with the pt today. RDN concludes that pt is a candidate for sx at this time. Reservations include . Pt verbally agreed to recommendations and goals. Denied further questions/concerns . RDN will monitor weight loss, labs, and lifestyle modifications. Will f/up as scheduled or PRN. [email or web address] Not available 01/04/2024 12:52:29 Plan of Treatment Reminders Order Date Submit Date Provider Last Modified By Organization Details Last Modified Time Details Appointments None recorded. Lab CBC w/ auto diff 2023 024 [email or web address] [facility], [address], [address], [place], [address], 4 15:51:00 CMP, serum or plasma 2023 024 [email or web address] [facility], [address], [address], [place], [address], 4 15:51:00 HbA1c (hemoglobin A1c), blood 2023 024 [email or web address] [facility], [address], [address], [place], [address], 4 15:51:00 iron + TIBC + ferritin, serum 2023 024 [email or web address] [facility], [address], [address], [place], [address], 4 15:51:00 vitamin D, 25-hydroxy, total, serum 2023 024 [email or web address] [facility], [address], [address], [place], [address], 4 15:51:00 vitamin A (retinol), serum 2023 024 [email or web address] [facility], [address], [address], [place], [address], 4 15:51:00 vitamin E, serum 2023 024 [email or web address] [facility], [address], [address], [place], [address], 4 15:51:01 PTH (parathyroi d hormone), intact, serum or plasma 2023 024 [email or web address] [facility], [address], [address], [place], [address], 4 15:51:01 TSH + free T4, serum 2023 024 [email or web address] [facility], [address], [address], [place], [address], 4 15:51:01 folate, serum 2023 024 [email or web address] [facility], [address], [address], [place], [address], 4 15:51:01 methylmalon ate, QN, serum or plasma 2023 024 [email or web address] [facility], [address], [address], [place], [address], 4 15:51:01 thiamine, QN, blood 2023 024 [facility], [address], [address], [place], [address], 4 15:51:01 lipid panel, serum 2023 024 [email or web address] [facility], [address], [address], [place], [address], 4 15:51:01 Referral None recorded. Procedures None recorded. Surgeries esophagogas troduodenos copy (SURG) 2023 024 [email or web address] Not available 4 14:04:20 Imaging XR, chest, 2 view 2023 024 [email or web address] [facility] (Centralized Scheduling), [address], [place], [address], 4 15:22:23 electrocard iogram, routine ECG, 12 leads min 2023 024 [email or web address] Not available 4 15:22:24 Medication Orders None recorded. Patient TargetsNo targets recorded. Patient InstructionsNo instructions recorded. Reason for Referral None Reported. Problems Name Problem SNOMED Code Status Onset Date Resolution Date Notes Provider Name and Address Organization Details Recorded Time Essential hypertension 91174586 Active 2023 NORMAN Best [address], [place], [address] , [facility] - [place] & [place] 4 08:43:07 Hyperlipidemi a 92997454 Active 2023 NORMAN Best [address], [place], [address] , [place] - [facility] & [place] 4 08:43:10 Obesity 862727624 Active 2023 NORMAN Best [address], [place], [address] , [place] - [facility] & [place] 4 08:47:08 Disorder of function of stomach 676232934 Active [address], [place], [address] , [place] - [facility] & [place] 4 08:47:14 Coronary arteriosclero sis 24291055 Active [address], [place], [place], [address] [place] [address] , [place] - [facility] & [place] 4 10:36:55 Atrial fibrillation 59007915 Active [address], [place], [address] , [place] - [facility] & [place] 4 10:52:03 Problem Notes None recorded. Procedures Surgical History Date Name Laterality Status Provider Name and Address Organization Details Recorded Time Shoulder joint surgery completed Roxy Allen [facility] & [place] 01/04/2024 10:11:22 percutaneous extraction of kidney stone with fragmentation procedure completed [address], [place], [address], [place] - [facility] & [place] 01/04/2024 10:35:[address], [place], [address], [place] - [facility] & [place] 01/04/2024 10:35:21 Imaging Results None recorded. Procedure Notes None recorded. Medical Equipment None Reported. Allergies Allergen ID Allergen Name Allergen Category Reaction Reaction Severity Criticality Documentation Date Start Date Code Code System Note Provider Name and Address Organization Details Recorded Time 373326 mineral oil / petrolatu m medicatio n Not available Not available Not available 01/04/2024 59876 6 RxNorm Roxy [facility], [place] - [facility] & [place] 4 09:57:41 Medications Name Sig Start Date Stop Date Status Note LastModified by Organization Details LastModified Time Miralax 17 gram oral powder packet Take 5 packets 3 times a day by oral route as directed for 1 day. 2022 active Not Available Not Available Not Avai lable metformin 500 mg tablet TAKE 1 TABLET BY MOUTH TWICE A DAY WITH FOOD active Not Available Not Available No t Available atorvastati n 80 mg tablet TAKE 1 TABLET BY MOUTH DAILY active Not Available Not Available No t Available carvedilol 25 mg tablet TAKE 1 TABLET BY MOUTH TWICE A DAY active Not Available Not Available No t Available labetalol 200 mg tablet TAKE 1 TABLET BY MOUTH TWICE A DAY 01/03 completed Not Available Not Available Not Available azithromyci n 250 mg tablet TAKE 2 TABLETS BY MOUTH TODAY, THEN TAKE 1 TABLET DAILY FOR 4 DAYS DIRECTED 01/03 completed Not Available Not Available Not Available warfarin 7.5 mg tablet TAKE 1 TABLET BY MOUTH EVERY DAY OR DIRECTED active Not Available Not Available No t Available diltiazem CD 240 mg capsule,ext ended release 24 hr TAKE 1 CAPSULE BY MOUTH 2 TIMES DAILY active Not Available Not Available No t Available spironolact one 100 mg tablet 01/03 completed Not Available Not Available Not Available rizatriptan 10 mg tablet 01/03 completed Not Available Not Available Not Available oxcarbazepi ne 300 mg tablet TAKE 2 TABLETS BY MOUTH 2 TIMES DAILY. active Not Available Not Available No t Available chlorthalid one 25 mg tablet TAKE 1 TABLET BY MOUTH EVERY DAY active Not Available Not Available No t Available allopurinol 100 mg tablet TAKE 1 TABLET BY MOUTH EVERY DAY active Not Available Not Available No t Available spironolact one 25 mg tablet active Not Available Not Available Not Available triamcinolo ne acetonide 0.025 % topical cream APPLY TO ARMS THREE TIMES DAILY FOR 7 DAYS active Not Available Not Available No t Available pantoprazol e 40 mg tablet,samantha yed release Take 1 tablet every day by oral route. 01/03 completed Not Available Not Available Not Available warfarin 5 mg tablet active Not Available Not Available No t Available valsartan 320 mg tablet TAKE 1 TABLET BY MOUTH EVERY DAY active Not Available Not Available No t Available Imdur 60 mg tablet,exte nded release Take 1 tablet every day by oral route. active Not Available Not Available No t Available hydralazine 50 mg tablet active Not Available Not Available Not Available hydrochloro thiazide 25 mg tablet TAKE 1 TABLET BY MOUTH ORALLY DAILY active Not Available Not Available No t Available methylpredn isolone 4 mg tablets in a dose pack TAKE 6 TABLETS ON DAY 1 DIRECTED ON PACKAGE AND DECREASE BY 1 TAB EACH DAY FOR A TOTAL OF 6 DAYS 01/03 completed Not Available Not Available Not Available colchicine 0.6 mg tablet TAKE 1 TABLET BY MOUTH EVERY DAY 01/03 completed Not Available Not Available Not Available finasteride 5 mg tablet active Not Available Not Available Not Available irbesartan 300 mg tablet TAKE 1 TABLET DAILY active Not Available Not Available No t Available spironolact one 50 mg tablet TAKE 1 TABLET BY MOUTH DAILY 01/03 completed Not Available Not Available Not Available Xarelto 20 mg tablet 01/03 completed Not Available Not Available Not Available Edarbyclor 40 mg-25 mg tablet 01/03 completed Not Available Not Available Not Available icosapent ethyl 1 gram capsule 01/03 completed Not Available Not Available Not Available Vitals Date Recorded Body height Body mass index (BMI) Body weight Heart rate Body temperature Systolic blood pressure Diastolic blood pressure Provider Name and Address Organization Details Last Updated DateTime 4 182.88 cm 34.9 kg/m2 561515. 39 g 71 /min 98 [degF] 144 mm[Hg] 97 mm[Hg] Roxy Alejandro NAZARIO [facility] & [place] 4 09:56:59 Social History Question Answer Notes LastModified by Organizat ion Details LastModified Time Tobacco Smoking Status Never Smoker Roxy Allen senia [facility] & [place] 01/04/2024 10:11:05 What Is Your Level Of Alcohol Consumption? None [email or web address] Information not available 01/04/2024 Sex: Unknown Functional Status None recorded. Mental Status None recorded. Family History Relationship Description Onset Age of this Age Resolved Age Notes LastModified by Organization Details LastModified Time Father Hypertensive disorder [email or web address] Not available 2023 10:10:25 Mother Diabetes mellitus [email or web address] Not available 2023 10:10:47 Paternal Grandmother Diabetes mellitus Not available 2023 10:10:47 Medical History Condition Response Coronary Artery Disease Y Gout Y Other Y Kidney Stones Y Reflux/GERD Y Sleep Apnea Y High Cholesterol Y Liver Disease N Heart Disease Y Pulmonary Embolism N Deep Vein Thrombosis N Hypertension Y Kidney Disease N Past Encounters Encounter ID Performer Location Encounter Start Date Encounter Closed Date Diagnosis/Indication Diagnosis SNOMED-CT Code Diagnosis ICD10 Code Diagnosis Note [id number] LANDON ZARCO RDN, [facility] [address] [facility] [address] [place] [address] 01/04/2024 11:03:55 01/04/2024 12:56:38 Obesity 715709776 E66.9 Irregular meal frequency 347600012 Z72.4 Diet education 67224966 Z71.3 [id number] NORMAN Best [facility] [address] [facility] [address] [place] [address] 01/04/2024 08:06:40 01/04/2024 10:48:03 Obesity 151586373 E66.9 The patient will be scheduled for the following. Initial intake lab work, cardiac clearance, and EGD. All risks complicati ons and alternativ es of the upper endoscopy were discussed with the patient and agreed upon. These include but are not limited to, over sedation, bleeding, perforatio n. Patient will be educated by the surgical weight loss team regarding if any medical managed weight loss will be required and they will follow this according to their recommenda tions. patient will follow-up in office after all testing has been completed Essential hypertension 99405966 I10 Borderline blood pressure reading in office today. Patient encouraged to continue to manage with PCP Hyperlipidemia 49766890 E78.5 Pre-surger y evaluation 852887866 Z01.818 Disorder o f function of stomach 285596959 K31.89 Coronary arteriosclerosis 99071320 I25.10 Atrial fibrillation 4943 6004 I48.91 Chronic anticoagul ation with warfarin. Patient is advised he will need perioperat roma coagulatio n management statement from treating MD Health Concerns Section Related Observation LastModified by Organization Detai ls LastModified Time None Recorded Concern Status LastModified by Organization Details LastModified Time None Recorded Advance Directives Directive None Recorded Payers Encounter Date Sequence Insurance Name Policy Number Policy Jewell Covered Member ID Jewell Member ID Guarantor Name 01/04/2024 1 [facility] (MEDICARE REPLACEMENT/A DVANTAGE - PPO) [id number] Dewayne Lizeth Jerardo [id number] Dewayne Kurtz 01/04/2024 1 [facility] (MEDICARE REPLACEMENT/A DVANTAGE - PPO) [id number] Dewayne Stanley Jerardo [id number] Dewayne Lizeth Jerardo Notes Date Note Type Note Provider Name and Address Organization Details Recorded Time 01/04/2024 text/html RDN met w/ pt to complete initial nutritional assessment for intake of bariatric surgery. Pt is interested in sleeve. 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[place], [place] Past weight loss attempts: walking Tx or Dx of eating disorder: DeniesPt suspicion of eating disorder: Denies PMH and meds list reviewed.Notes - Meal Pattern: B - breakfast sandwichS -L - sometimes skipsS - lunch or skipsD - 7:30 cubed steak and mashed potatoes with mixed vegetables / Emir[place] food / chili dogsS - Frequency of eating out: >2x/week Beverages: juices, lemonade, sweet tea with sugar Social Hx reviewed.Notes -Pt describes activity level to be: low Recent changes: is on disability 2/2 seizures; 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 Pt is eating smaller portions for meals than in the past. Reports lower appetite. Eating slow-cooked meals vs fried foods. Avoiding pork and considering being vegetarian or pescetarian. Motivation for surgery: has cut back on eating and has difficulty losing weight in his abdomen Support after surgery: describes good support system and will be able to take time to recover post-op prn Goals for surgery: would like to lose weight but also increase ability to engage in physical activity LANDON ZARCO RDN, LD [address], [place], [address], [facility] & [place] 01/04/2024 12:52:58 01/04/2024 text/html Patient presents today for the initial evaluation with an interest in bariatric surgery. Patients first choice for bariatric surgery is sleeve gastrectomy. Current BMI 34.9Patient gives history of issues with anesthesia in the past. He states he an EGD in 2019 requiring ICU admission defibrillatorPt has been overweight most of their life. Has been 100lbs or more over weight for _8 years. Pt reports dyspnea joint pain and mobility issues related to excess weight.The pt is pursuing weight loss surgery because excess weight directly contributes to comorbidities including HTN HLD MAVIS CAD. Patient gives history of [place] in 2022. He is history of AFib and is on chronic anticoagulation warfarinDiets include calorie counting high protein/low carb diet. Pt site physical hunger and boredom as prompts to eat. Struggles with portion size. DIET HX:The patient states that they have been overweight since young adulthoodThe patient states that they have been 100 lbs or more overweight 8 years.The patient started dieting at the age of 43Dieting methods that have been most successful in losing weight are noneThe most weight ever lost on a single dieting attempt was 25lbs and this was maintained until 1 yearThe patient has attempted the following unsupervised diet attempts noneThe Patient has followed the following supervised diet attempts noneThe following OTC or prescribed medications have been utilized for weight loss noneBehavior treatments for weight loss that have been attempted in the past were noneThe patient has utilized the following modes of exercise to help with weight loss walkingThe patient has not use self induced behaviors to help them lose weight in the past.Currently the patient admits to an eating history of eating large meals at one sitting, skipping meals.The patient feels that the majority of their meals are prepared at home.Common triggers for causing the patient to overeat are none. NORMAN Best [address], [place], [address], [facility] & [place] 01/04/2024 10:54:18
--- OUTSIDE RECORDS SUMMARY | 2024-12-20 10:27 | XMS_ITS ---
Care Plan - [facility] Created on: December 20, 2024 Dewayne Kurtz : 1980 Sex: Male Author Organization [facility] Address [address] [place] [address] Phone Care Team Providers Care Chief Mechanical Officer Name Role Phone Marly EMERY, Michael Unavailable [phone] Robyn EMERY, Jethro Unavailable [phone]
--- OUTSIDE RECORDS SUMMARY | 2024-12-20 10:27 | XMS_ITS | Data Portability ---
Author Organization ARAVIND - SANDRA Palomares CASTLEBERRY CLOSED Address [address] [facility] [address] [place] [address] Assessment Encounter Date Assessment Date Assessment LastModified by Organization Details LastModified Time 10/18/2023 10/18/2023 Overall think this was likely related to a viral infection. Patient's symptoms are improving therefore recommend symptomatic treatment at this time including adequate hydration, electrolyte enhanced water, Tylenol/ibupro fen as needed. RTO if symptoms worsen or do not improve [email or web address] Not available 10/18/2023 13:15:53 Plan of Treatment Reminders Order Date Submit Date Provider Last Modified By Organization Details Last Modified Time Details Appointments None recorded. Lab None recorded. Referral None recorded. Procedures colonoscopy screening (PROC) 2022 023 4 Davidson Guillen MD, [address] [facility], [place], [address], 3 14:52:51 Surgeries None recorded. Imaging XR, shoulder, 2 or more view 2018 019 [email or web address] Not available 9 08:29:08 XR, shoulder, 2 or more view 2018 019 [email or web address] Not available 9 08:29:08 Medication Orders Zithromax Z-Horacio 250 mg tablet 2022 023 [facility]/Pharmacy #[id number], [address] [facility], [place], [address], 4 10:04:15 Patient TargetsNo targets recorded. Patient Instructions Encounter Date Encounter Id Patient Instructions Last Modified By Organization Details Last Modified Time 03/15/2019 [id number] shoulder stretches: exercises [email or web address] Not available 03/15/2019 11:38:58 Reason for Referral None Reported. Results Created Date Observation Date Name Description Value Unit Range Abnormal Flag Note LastModifiedBy Organization Detail LastModifiedTime 03/15/20 19 03/15/2019 XR, shoul albino, 2 or more view [facility] [address] [place] [address] Mckenna cervantes Name: DEWAYNE cervantes : [birth year] 79 Mckenna cervantes 9 Orderi ng Provid er: MARY ROBLES EXAM DATE: 2018 EXAM: XR RT SHOULD ER COMPLE TE RADIOG RAPHIC VIEWS: 3 COMPAR RUSLAN: 2016 HISTOR Y: Right should er pain. FINDIN GS: The bones of the should er are normal in alignm ent. There is no eviden ce of fractu re. There is mild degene rative change s at the acromi oclavi cular joint and along the glenoh umeral joint. The acromi oclavi cular and coraco clavic ular spacin g is normal . An ossifi c body projec ts in the axilla ry pouch. The visual ized right ribs and right lung appear s normal . IMPRES LISA: 1. There are mild degene rative change s in the right should er. Interp reted By: Irineo long MD Electr onical ly Signed By: Irineo long MD on 019 11:44 AM ddome [facility] [place] [address], [place], [address], 03/18/2019 14:56:08 03/15/2003/15/2019 XR, shoul albino, 2 or more view [facility] [address] [place] [address] Mckenna cervantes Name: DEWAYNE cervantes : [birth year] Mckenna cervantes 9 Orderi ng Provid er: MARY ROBLES EXAM DATE: 2018 EXAM: XR LT SHOULD ER COMPLE TE RADIOG RAPHIC VIEWS: 3 COMPAR RUSLAN: 2016 HISTOR Y: Follow -up of prior surger rosa HERMAN GS: Again seen is a left should er federico-a rthrop lasty. There is no eviden ce of loosen ing or compli cation . No fractu re is identi fied. There are mild degene rative change s at the acromi oclavi cular joint. IMPRES LISA: 1. There is a left should er federico-a rthrop lasty in place withou t eviden ce of compli cation . Interp reted By: Irineo long MD Electr onical ly Signed By: Irineo long MD on 019 11:[facility] [place] [address] , [place], [address], 03/18/2019 14:56:08 Result Notes None recorded. Problems Name Problem SNOMED Code Status Onset Date Resolution Date Notes Provider Name and Address Organization Details Recorded Time Abdominal pain 97846028 Active 024 AGATA TORRES DO [address] [place], [address], [facility] 4 13:11:05 Diarrhea 82601747 Active 024 AGATA TORRES, DO [address] [place], [address], [facility] 4 13:11:15 Vomiting 714713867 Active 024 AGATA TORRES, DO [address] [place], [address], [facility] 4 13:11:27 Problem Notes None recorded. Procedures Surgical History Date Name Laterality Status Provider Name and Address Organization Details Recorded Time 7 Op Note completed JUVENTINO CARBONE MD [address] [place], [address], [facility] 12/22/2016 11:18:59 Orthopedic Surgery completed Beni Sadler [facility] 03/15/2019 10:50:32 Imaging Results Imaging Date Name Status LastModified by Organiz ation Details LastModified Time 03/15/2019 XR, shoulder, 2 or more view completed [facility] [place] [address] , [place], [address], 03/18/2019 14:56:08 03/15/2019 XR, shoulder, 2 or more view completed [facility] [place] [address] , [place], [address], 03/18/2019 14:56:08 Procedure Notes None recorded. Medical Equipment None Reported. Allergies No known drug allergies Medications Name Sig Start Date Stop Date Status Note LastModified by Organization Details LastModified Time amoxicilli n 500 mg capsule TAKE 1 CAPSULE BY MOUTH THREE TIMES A DAY 10/18 completed Not Available Not Available Not Available atorvastat in 40 mg tablet TAKE 2 TABLETS ORALLY AT BEDTIME NIGHTLY active Not Available Not Available No t Available metformin 500 mg tablet TAKE 1 TABLET BY MOUTH TWICE A DAY WITH FOOD active Not Available Not Available No t Available atorvastat in 80 mg tablet TAKE 1 TABLET ORALLY AT BEDTIME NIGHTLY active Not Available Not Available No t Available carvedilol 25 mg tablet TAKE 1 TABLET ORALLY TWICE A DAY active Not Available Not Available No t Available labetalol 200 mg tablet TAKE 1 TABLET BY MOUTH TWICE A DAY active Not Available Not Available No t Available azithromyc in 250 mg tablet TAKE 2 TABLETS BY MOUTH TODAY, THEN TAKE 1 TABLET DAILY FOR 4 DAYS DIRECTED 10/18 completed Not Available Not Available Not Available diltiazem CD 240 mg capsule,ex tended release 24 hr TAKE 1 CAPSULE BY MOUTH EVERY DAY active Not Available Not Available No t Available ondansetro n HCl 4 mg tablet Take 2 tablets 3 times a day by oral route. active Not Available Not Available No t Available spironolac tone 100 mg tablet active Not Available Not Available No t Available rizatripta n 10 mg tablet active Not Available Not Available Not Available oxcarbazep ine 300 mg tablet TAKE 1 AND 1/2 TABLETS BY MOUTH TWICE DAILY 2022 active Not Available Not Available Not Avai lable chlorthali done 25 mg tablet Daily 12/23 completed Frequen cy: daily;M edicati on Descrip tion: chlorth alidone ; Dosage: 1; Route:o ral; refills :1; Quantit y:90 tablet Not Available Not Available Not Available cimetidine 300 mg tablet 1 Tablet two hours prior to MRI 05/08 completed Not Available Not Available Not Available allopurino l 100 mg tablet TAKE 1 TABLET BY MOUTH EVERY DAY active Not Available Not Available No t Available spironolac tone 25 mg tablet Take 1 tablet every day by oral route. active Not Available Not Available No t Available triamcinol one acetonide 0.025 % topical cream APPLY TO ARMS THREE TIMES DAILY FOR 7 DAYS active Not Available Not Available No t Available Percocet 10 mg-325 mg tablet 1-2 Tabs PO Q4-6 HOURS PRN 03/15 completed Not Available Not Available Not Available hydrocodon e 7.5 mg-acetami nophen 325 mg tablet TAKE 1 TABLET BY MOUTH EVERY 6 HOURS NEEDED FOR PAIN active Not Available Not Available No t Available Norvasc 5 mg tablet Daily 06/22 completed Frequen cy: daily;M edicati on Descrip tion: amlodip ine; Dosage: 1; Route:o ral; refills :1; Quantit y:90 tablet Not Available Not Available Not Available prednisone 50 mg tablet 1 Tablet at 5:00pm, and 11:00pm the night before MRI. 1 Tablet two hours before MRI 05/08 completed Not Available Not Available Not Available omeprazole 20 mg capsule,de layed release Take 1 capsule every day by oral route. 08/16 completed Not Available Not Available Not Available hydrochlor othiazide 25 mg tablet TAKE 1 TABLET BY MOUTH ORALLY DAILY active Not Available Not Available No t Available ibuprofen 600 mg tablet TAKE 1 TABLET BY MOUTH THREE TIMES A DAY UNTIL FINISHED active Not Available Not Available No t Available oxycodone- acetaminop hen 7.5 mg-325 mg tablet TAKE 1 TO 2 TABLETS EVERY 6 TO 8 HOURS NEEDED FOR PAIN 03/15 completed Not Available Not Available Not Available methylpred nisolone 4 mg tablets in a dose pack TAKE 6 TABLETS ON DAY 1 DIRECTED ON PACKAGE AND DECREASE BY 1 TAB EACH DAY FOR A TOTAL OF 6 DAYS active Not Available Not Available No t Available labetalol 100 mg tablet Take 2 tablets twice a day by oral route. active Not Available Not Available No t Available colchicine 0.6 mg tablet TAKE 1 TABLET BY MOUTH EVERY DAY active Not Available Not Available No t Available Percocet 5 mg-325 mg tablet Take 1 tablet every 8 hours by oral route as needed. 03/15 completed Not Available Not Available Not Available [place] 5 mg-325 mg tablet 1 PO Q 6-8 hours PRN pain 06/22 completed Not Available Not Available Not Available irbesartan 300 mg tablet TAKE 1 TABLET BY MOUTH EVERY DAY active Not Available Not Available No t Available Benadryl Allergy 25 mg tablet 1 Tablet at 5:00pm, and 11:00pm the night before MRI. 1 Tablet two hours before MRI 05/08 completed Not Available Not Available Not Available DILT-XR 240 mg capsule, extended release Take 1 capsule every day by oral route. active Not Available Not Available No t Available hydrochlor othiazide 06/22 completed Not Available Not Available Not Available carvedilol 05/08 completed Not Available Not Available Not Available amlodipine 05/08 completed Not Available Not Available Not Available cephalexin 05/08 completed Not Available Not Available Not Available levetirace harley 08/15 completed Not Available Not Available Not Available Xarelto 20 mg tablet Take 1 tablet every day by oral route. active Not Available Not Available No t Available Edarbyclor 40 mg-25 mg tablet active Not Available Not Available No t Available icosapent ethyl 1 gram capsule Take 2 capsules twice a day by oral route. active Not Available Not Available No t Available Jardiance 10 mg tablet Take 1 tablet every day by oral route. active Not Available Not Available No t Available Vitals Date Recorded Body height Body mass index (BMI) Body weight Systolic blood pressure Diastolic blood pressure Provider Name and Address Organization Details Last Updated DateTime 10/10/2017 182.88 cm 32.5 kg/m2 686157.1 7 g 156 mm[Hg] 99 mm[Hg] [facility] 8 09:18:40 Date Recorded Body height Body mass index (BMI) Body weight Provider Name and Address Organization Details Last Updated DateTime 03/15/2019 182.88 cm 32.5 kg/m2 877785.17 g Beni Sadler [facility] 03/15/2019 10:47:49 Date Recorded Body height Body mass index (BMI) Body weight Body temperature Heart rate Respiratory rate Oxygen saturation Oxygen saturation in Arterial blood by Pulse oximetry Systolic blood pressure Diastolic blood pressure Provider Name and Address Organization Details Last Updated DateTime 3 200.66 cm 27.4 kg/m2 243373. 95 g 97.8 [degF] 84 /min 16 /min 100 % 100 % 128 mm[Hg] 78 mm[Hg] [facility] 3 11:45:23 Date Recorded Body height Body mass index (BMI) Body weight Body temperature Heart rate Respiratory rate Oxygen saturation Oxygen saturation in Arterial blood by Pulse oximetry Systolic blood pressure Diastolic blood pressure Provider Name and Address Organization Details Last Updated DateTime 3 200.66 cm 27.5 kg/m2 428914. 54 g 97.6 [degF] 82 /min 14 /min 97 % 97 % 132 mm[Hg] 80 mm[Hg] [facility] 3 14:56:30 Date Recorded Body height Body mass index (BMI) Body weight Body temperature Heart rate Oxygen saturation Oxygen saturation in Arterial blood by Pulse oximetry Systolic blood pressure Diastolic blood pressure Provider Name and Address Organization Details Last Updated DateTime 4 200.66 cm 29.3 kg/m2 549762. 02 g 98 [degF] 77 /min 97 % 97 % 134 mm[Hg] 80 mm[Hg] Tila Masood [facility] 4 10:01:09 Social History Question Answer Notes LastModified by Organizat ion Details LastModified Time Tobacco Smoking Status Never Smoker JUVENTINO CARBONE MD [address] [place], [address], [facility] 12/06/2016 16:11:47 What Was The Date Of Your Most Recent Tobacco Screening? 08/16/2023 [email or web address] Information not available 08/16/2023 How Many Children Do You Have? 2 Information not available 10/18/2023 What Is Your Relationship Status? Information not available 10/18/2023 Do You Use Any Illicit Or Recreational Drugs? No Information not available 10/18/2023 Has Tobacco Cessation Counseling Been Provided? No Information not available 10/18/2023 Do You Or Have You Ever Used Any Other Forms Of Tobacco Or Nicotine? No Information not available 10/18/2023 Sex: Unknown Functional Status None recorded. Mental Status None recorded. Family History Relationship Description Onset Age of this Age Resolved Age Notes LastModified by Organization Details LastModified Time Father No current problems or disability [email or web address] Not available 12/06 16:11:41 Mother No current problems or disability [email or web address] Not available 12/06 16:11:41 Medical History Condition Response Allergies/Hayfever N Anxiety/Depression N Other N Gout N Thyroid Disease N Kidney Stones N Heart Conditions N Hernia N Migraines N COPD N Glaucoma N Pneumonia Y Skin Problems N Immune System Disorder N Anesthesia Complications N Heart Attack ([place]) N Mental Illness N Neurological Problems N Diabetes N Rheumatic Fever N Bleeding Disorder N Arthritis N Seizures/Epilepsy Y Blood Clot N Tuberculosis N Genetic Disorder N AIDS/HIV N Cancer N Stroke N Asthma N Blood Thinners N Alcohol Overuse/Alcohol Abuse N Sleep Apnea N High Cholesterol N Liver Disease N Included as Review of Systems N Hypertension N Osteoporosis N Kidney Disease N Immunizations Vaccine Type Date Status Note Provider Nam e and Address Organization Details Recorded Time COVID-19, mRNA, LNP-S, PF, 100 mcg/0.5mL dose or 50 mcg/0.25mL dose 02/27/2021 completed ARAVIND Vargas [facility] 05/08/2023 12:09:10 COVID-19, mRNA, LNP-S, PF, 100 mcg/0.5mL dose or 50 mcg/0.25mL dose 03/28/2021 completed Regine conn [facility] 05/08/2023 12:09:10 Past Encounters Encounter ID Performer Location Encounter Start Date Encounter Closed Date Diagnosis/Indication Diagnosis SNOMED-CT Code Diagnosis ICD10 Code Diagnosis Note [id number] JUVENTINO CARBONE MD [facility]I [facility] [place] [address] [place] [address] 12/06/2016 15:52:03 12/13/2016 09:10:15 Instability of left shoulder joint 1683938149 299305 M25.312 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 He is a candidate for allograft transfer versus humeral head replacemen t. Given his seizure disorder and the potential for high-impac t where I'm recommendi ng humeral head replacemen t. Because of his young age and preserve bone stock I'm recommendi saud a stem less component. He will need to be dedicated about his rehabilita tion. We discussed the risks of replacemen t at such a young age. We will not plan to do anything to the glenoid. May perform some suture anchor fixation of the posterior labrum and capsule. Risks benefits and alternativ es discussed Informed consent was discussed with the patient. This included the risks of anesthesia , bleeding, nerve damage, infection, the need for further surgeries, disability and . Failure of the procedure and the need for appropriat e rehabilita tion were noted. Consent was confirmed. [id number] JUVENTINO CARBONE MD SURGERY SCHEDULE [address] [place] [address] 12/19/2016 09:24:29 12/19/2016 09:28:56 Postoperative care 490841191 Z48.89 [id number] GWEN MOJICA PA-C ORTHOPEDI [address] [place] [address] 12/23/2016 10:02:23 12/23/2016 13:51:07 Postoperative care 662402910 Z48.89 [id number] JUVENTINO CARBONE MD [place] [place] [address] [place] [address] 01/17/2017 11:15:51 01/17/2017 17:03:58 Postoperative care 708556253 Z48.89 PT protocol [id number] JUVENTINO CARBONE MD [place] [place] [address] [address] 02/15/2017 11:06:25 02/16/2017 08:48:39 Postoperative care 917147070 Z48.89 I informed Dewayne that his only been 6 weeks and is not expected to have excellent active movement at this time. In fact, we have not allowed him to have active movement. He does feel like he is slightly stiff and this may be a propensity that he has. Now that has been 6 weeks we will advance his physical therapy program. Gently work on his range of motion to increase and initiate active assisted and active range of motion. We discussed the importance of his home exercises and precaution s. We'll see him back in 5 weeks with x-rays on arrival. 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 I'm recommendi ng conservati ve treatment until we get better control over his seizure disorder. He also still does not have excellent function of the left shoulder yet. I recommende d short-term sling immobiliza tion with physical therapy. Total shou lder replacement 24947078 Z96.619 x-rays appear well aligned. His belly press is getting stronger. Perhaps now we can focus more on his left shoulder rehabilita tion as well. Return in 4 weeks [id number] JUVENTINO CARBONE [place] [address] 05/03/2017 10:44:25 05/04/2017 16:20:15 Postoperative care 780511005 Z48.89 This patient will require increased physical therapy visits to assist in his complex case ; seizure instigated dislocatio ns of Bilateral shoulders and humeral head replacemen t. He has had set backs from seizures and tendency to stiffness. 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 I'm recommendi ng conservati ve treatment until we get better control over his seizure disorder. He also still does not have excellent function of the left shoulder yet. I recommende d short-term sling immobiliza tion with physical therapy. [id number] JUVENTINO CARBONE MD [facility]THOP[facility] [place] [address] [place] [address] 06/14/2017 08:51:19 06/14/2017 13:57:44 Instability of right shoulder joint 5812731682 318468 M25.311 seizure related anterior dislocatio n with Bankart tear and large Hill-Sachs . I'm recommendi ng conservati ve treatment until we get better control over his seizure disorder. He also still does not have excellent function of the left shoulder yet. Total shou lder replacement 90593349 Z96.619 hemiarthro plasty, stem wasSignifi cant stiffness, perhaps from capsulorrh aphy or from postoperat roma care.Allow ed activities to tolerance and recommend continued home exercise program. I do not believe he can perform any work above shoulder level and has lifting restrictio ns due to his weakness. [id number] JUVENTINO CARBONE MD [facility] [place] [address] [place] [address] 10/10/2017 08:49:23 10/10/2017 13:35:31 Detachment of the glenoid labrum and/or capsule of the shoulder joint 772358725 S43.491D RIGHT indication for scope bankart would be persistent pain with failure conservati ve care Offered Cont PT and HEP discussed supportive measures 20 min [id number] MARY ROBLES MD [facility] [place] [address] [place] [address] 03/15/2019 10:42:07 03/15/2019 11:48:43 Pain of left shoulder joint 7450083548 3746129 M25.512 Mr Kurtz continues to have some pain in the left shoulder but has not had recurrent shoulder instabilit y. I recommend continued gentle stretching and strengthen ing of the shoulders. Pain of ri ght shoulder joint 3515036151 9414796 M25.511 Mr Kurtz has some mild rotator cuff tendinopat hy of the right shoulder. I recommend gentle strengthen ing with a home exercise program. [id number] CAR JESUS , DO [facility] [place] [address] [facility] [place] [address] 05/08/2023 11:25:39 05/08/2023 13:47:25 Screening for malignant neoplasm of colon 136141093 Z12.11 Poor short -term memory 870917485 R41.3 I have been concerned about this for a while, I think he is forgetting his medication at times as well. He is on several strong medication s, strong seizure medication s, suspect there is some neurologic changes from his seizures as well. I do not know that there is much to do about this at this point. Recommend to discuss further evaluation with neurologis t who he sees regularly [id number] CAR JEREZ, DO PRIMARY CARE [address] [place] [address] 08/16/2023 14:36:00 08/16/2023 15:14:33 Has a sore throat 866775021 J02.9 Acute upper respirator y tract infection, patient's hypertensi on is difficult to treat when he gets sick his blood pressure is even more difficult to treat. We will give Z-Horacio [id number] AGATA TORRES, DO [facility] [place] [address] [facility] [place] [address] 10/18/2023 09:44:38 10/18/2023 10:47:54 Abdominal pain 35016704 R10.9 Diarrhea 14678833 R19.7 Vomiting 207895431 R11.1 0 Health Concerns Section Related Observation LastModified by Organization Detai ls LastModified Time None Recorded Concern Status LastModified by Organization Details LastModified Time None Recorded Advance Directives Directive None Recorded Payers Encounter Date Sequence Insurance Name Policy Number Policy Jewell Covered Member ID Jewell Member ID Guarantor Name 10/10/2017 1 [place] [employer] [place] [id number] Mae Ramos [id number] Dewayne Kurtz 03/15/2019 1 [place] [id number] Mae Ramos [id number] Dewayne Kurtz 05/08/2023 1 [employer] (MEDICARE REPLACEMENT/A DVANTAGE - HMO) Dewayne Kurtz [id number] Dewayne Kurtz 08/16/2023 1 [employer] (MEDICARE REPLACEMENT/A DVANTAGE - HMO) Dewayne Kurtz [id number] Dewayne Kurtz 10/18/2023 1 [facility] (MEDICARE REPLACEMENT/A DVANTAGE - PPO) [id number] Dewayne Kurtz [id number] Dewayne Kurtz Notes Date Note Type Note Provider Name and Address Organization Details Recorded Time 10/10/2017 text/html LEFT shoulder He mi - slightly better but still stiff, working on his own, desires return to PT - min to NO pain 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 applying for SS based upon Sz d/o and shoulder impairment Right shoulder instabillity has left him with pain - pain with night, limited function, sharp catching pain JUVENTINO CARBONE MD [address] [place] [address], [address], [facility] 10/10/2017 09:32:52 03/15/2019 text/html Mr Kurtz return s with continuing complaints of bilateral shoulder pain. He has had prior left hemiarthroplasty performed by Dr Carbone in 2017 for humeral head defect associated with shoulder dislocation . He has persistent pain in the shoulders. He has significant pain at night. He denies recurrent instability or seizures. He complains of pain stiffness and weakness of the shoulders. He denies paresthesia or radicular symptoms and he denies other musculoskeletal complaints. MARY ROBLES MD [address] [place] [address], [address], [facility] 04/01/2019 18:48:35 05/08/2023 text/html Colonoscopy- orderedDepression PHQ2-DonePVC 20(Pneumonia vaccine) over 65-Flu vaccine, 18-65 ( high dose over 65)- Refused Patient is 42-year-old male here for follow-up visit, he has resistant hypertension, history of A-fib, history of hypertensive encephalopathy with seizure disorder,, had a upper respiratory tract infection last week that he originally made the appointment for, but is feeling better now, not much sinus congestion pressure sore throat or cough. No fever. His main concern today is of his memory, says he has poor short-term memory, forgets things people tell him forgets things his tells him, this has been going on for a while, possibly getting worse CAR WANG, DO [address] [place], [address], [facility] 05/08/2023 13:05:28 08/16/2023 text/html SICK VISIT Depression Screening--done Medication Refills-- Done SYMPTOMS-- patient states he was covid and strep tested on . He is having dry cough, and itchy throat. DURATION-- 3 days MEDICATION TAKEN--- Patient is 42-year-old male here for acute visit. Patient has resistant hypertension, felt to be reasonably well-controlled currently, he has been sick for 4 days now recently took a cruise, multiple family members have been sick, tested negative for COVID and the flu, sinus congestion pressure sore throat, mild cough. No fever no sputum production CAR WANG, DO [address] [place], [address], [facility] 08/16/2023 15:21:22 10/18/2023 text/html [facility] - he had [place], thought he was getting better, but then diarrhea and vomiting started.mostly still having abdominal tenderness , diarrhea stopped yesterday, has been taking Tums. Overall feels like he is improvinghas been taking tumsdiarrhea stopped yesterday AGATA TORRES, DO [address] [place], [address], [facility] 10/18/2023 13:16:55
--- OUTSIDE RECORDS SUMMARY | 2024-12-20 10:27 | XMS_ITS ---
Author Organization [facility] , [facility] Address [address] [place] [address] Phone Care Team Providers Care Paper And Prints Restorer Name Role Phone Marly EMERY, Michael Unavailable [phone] Jethro Carlson MD Unavailable [phone] Reason for Referral Date Encounter Description Provider Reason for Referral 03/03/22 Non Physician Specified Jethro Carlson MD R eferral To Physician Problems Includes: Active, inactive, and resolved Problems All Visits Onset Date Resolved Date Provider Condition S tatus Joint Pain in the Left Knee 03/03/2022 Jethro Carlson MD Active Last Documented On 2 9:10AM ; [facility], [facility] Plan of Treatment Instructions to patient Lose weight Last Documented On 2 9:12AM ; [facility], [facility] Assessments Includes: Assessments for all patient encounters No Assessments Recorded Instructions Includes: Instructions for all patient encounters Instructions to patient Lose weight Last Documented On 2 9:12AM ; [facility], [facility] Medical Equipment - Implanted Devices Includes: Current and historical Devices No Medical Equipment Recorded Medications Includes: Current and historical Medications Current Medications (continue as prescribed) Spironolactone 25 MG Oral Tablet 01/03/2022 Provider : Diagnosis: Last Documented On 2 9:10AM By Teresa [facility] Omeprazole 20 MG Oral Capsul e Delayed Release 12/06/2021 Provider: Michael Luke MD Diagnosis: Last Documented On 2 9:10AM By Teresa BEAL [facility] Fenofibric Acid 135 MG Oral Capsule Delayed Release 10/29/2021 Provider: Michael Luke MD Diagnosis: Last Documented On 2 9:10AM By Teresa Cheatham ; [facility], [facility] hydrALAZINE HCl 50 MG Oral Tablet 10/28/2021 Provide r: Michael Luke MD Diagnosis: Last Documented On 2 9:10AM By Teresa Cheatham ; [facility], [facility] Dilt-XR 240 MG Oral Capsule Extended Release 24 Hour 10/27/2021 Provider: Michael Luke MD Diagnosis: Last Documented On 2 9:10AM By Teresa Cheatham ; [facility], [facility] Labetalol HCl 200 MG Oral Tablet 10/27/2021 Provider : Michael Luke MD Diagnosis: Last Documented On 2 9:10AM By Teresa Cheatham ; [facility], [facility] OXcarbazepine 300 MG Oral Tablet 10/27/2021 Provider : Michael Luke MD Diagnosis: Last Documented On 2 9:10AM By Teresa Cheatham ; [facility], [facility] Potassium Chloride Elsi ER 2 0 MEQ Oral Tablet Extended Release 10/27/2021 Provider: Michael valentine MD Diagnosis: Last Documented On 2 9:10AM By Teresa Cheatham ; [facility], [facility] Past Medications on file Meloxicam 15 MG Oral Tablet 03/03/2022 - 04/02/2022 Pr ovider: Jethro Carlson MD Diagnosis: once a day Last Documented On 2 9:53AM By Carin Boudreaux ; [facility], [facility] Medications Administered Includes: Administered Medications in patient's chart No Administered Medications Recorded Results Includes: Results from 12/21/2023 through 12/20/2024 No Results Recorded For Specified Dates History of Present Illness History of Present Illness not supported for this document type No History of Present Illness Recorded Social History Description Last Updated No caffeine use 03/03/2022 Last Documented On 2 10:59AM ; [facility] No recent change in diet 03/03/2022 Last Documented On 2 10:59AM ; [facility] Not a current smoker. 03/03/2022 Last Documented On 2 10:59AM ; [facility] Not exercising regularly 03/03/2022 Last Documented On 2 10:59AM ; [facility] Not using alcohol 03/03/2022 Last Documented On 2 10:59AM ; [facility] Not using drugs 03/03/2022 Last Documented On 2 10:59AM ; [facility] Non-smoker 03/03/2022 Last Documented On 2 10:59AM ; [facility] Not a smoker 03/03/2022 Last Documented On 2 10:59AM ; [facility] Smoking Status Unknown Medical History Includes: Medical History in patient's chart Description Last Updated No recent immunization for flu 2 Last Documented On 2 10:59AM ; [facility] No recent immunization for pneumococcal pneumonia 03/03/2022 Last Documented On 2 10:59AM ; [facility] Family History Includes: Family History in patient's chart No Family History Recorded Review of Systems Review of Systems not supported for this document type No Review of Systems Recorded Mental Status No Mental Status Recorded Functional Status No Functional Status Recorded Physical Exam Physical Exam not supported for this document type No Physical Exam Recorded Allergies Includes: Active, inactive, and resolved Allergies No Known Allergies Insurance Includes: Active Insurance Policies Plan Name Member ID Group # Subscriber Relationship Effect roma Dates 1 - HUMANA [id number] Dewayne Jerardo Self 2021 - Unknown Clinical Notes Includes: Signed Clinical Notes starting from 08/04/2022 No Clinical Notes Recorded
[2024-12-20 10:51] LABS: Basophils % 0.4 % (0.1-2.0); Eosinophils # 0.2 Kmm3 (0.0-0.4); Hematocrit 39.4 % (42.0-52.0); Hemoglobin 13.4 g/dL (14.1-18.0); Lymphocytes # 1.8 K/mm3 (0.7-4.5); Lymphocytes % 32.3 % (10-50); Mean Corpuscular Hemoglobin 30.8 pg (27.0-31.2); Mean Corpuscular Volume 90.6 fl (80-94); Mean Platelet Volume 10.6 fl (7.4-10.4); Monocytes # 0.4 K/mm3 (0.1-1.0); Monocytes % 7.8 % (1.7-9.3); Neutrophils # 3.1 K/mm3 (1.8-7.8); Neutrophils % 55.1 % (37.0-80.0); Nucleated Red Blood Cells # 0 10^3/uL; Nucleated Red Blood Cells % 0 %; Platelet Count 245 K/mm3 (142-424); Red Blood Count 4.35 M/mm3 (4.60-6.20); Red Cell Distribution Width 15.9 % (11.5-17.5); Red Cell Distribution Width-SD 52.6 fL; White Blood Count 5.5 K/mm3 (4.8-10.8)
[2024-12-20 11:07] LABS: Chloride 105 mmol/L (98-107); Potassium 3.6 mmoL/L (3.5-5.1); Sodium 138 mmol/L (136-145)
[2024-12-20 11:10] LABS: Alanine Aminotransferase 29 U/L (12-78); Albumin/Globulin Ratio 1.7 (1.1-1.8); Alkaline Phosphatase 51 U/L (38-126); Anion Gap 11.6 mEq/L (5-15); Aspartate Amino Transferase 32 U/L (17-59); Bilirubin,Total 0.6 mg/dl (0.2-1.3); Blood Urea Nitrogen 14 mg/dl (9-20); Calcium 9.3 mg/dl (8.4-10.2); Carbon Dioxide 25 mmol/L (22.0-30.0); Cholesterol 203 mg/dl (140-200); Estimated Glomerular Filt Rate 60 ml/min (>60); GFR (African American) 72 ML/MIN (>60); Glucose 98 mg/dl (74-100); Magnesium 1.6 mg/dl (1.6-2.3); Triglycerides 337 mg/dl (30-150); VLDL Cholesterol 67 mg/dL (0-40)
[2024-12-20 11:11] LABS: Chol/HDL Ratio 4.8 (1-3.5); HDL Cholesterol 42 mg/dl (40-60)
[2024-12-20 11:22] LABS: Direct LDL Cholesterol 81.57 mg/dL (100-129)
[2024-12-20 11:31] LABS: Hemoglobin A1C 5.6 % (4.0-6.0)
[2024-12-20 11:33] LABS: Uric Acid 6.4 mg/dl (3.5-8.5)
[2024-12-20 11:50] LABS: 25-OH Vitamin D, Total 59.2 ng/mL (30-100)
[2024-12-20 12:22] LABS: Vitamin B12 389 pg/mL (239-931)
[2024-12-20 13:49] LABS: PHA INR Fingerstick 1.5 (0.9-1.1)
== END 2024-12-20 14:09 ==
PROVIDERS: Nurse Practitioner; PCP Nurse Practitioner Family; Visit Provider Nurse Practitioner Family
DX: E55.9 Vitamin D deficiency, unspecified (principal); E11.9 Type 2 diabetes mellitus without complications; R41.3 Other amnesia; E53.8 Deficiency of other specified B group vitamins; M10.9 Gout, unspecified; R53.83 Other fatigue; I10 Essential (primary) hypertension; Z79.84 Long term (current) use of oral hypoglycemic drugs; Z79.85 Long-term (current) use of injectable non-insulin antidiabetic drugs
CPT/HCPCS: 36415; 80053; 80061; 82306; 82607; 83036; 83735; 84550; 85025; 85610; 99211; G0463

== ENCOUNTER 2024-12-31 11:25 | Outpatient (CLI) | payer MEDICARE, SELFPAY | END 2024-12-31 23:59 | disposition home or self-care (01) | LOC: ACC 11:26 | PROVIDERS: PCP Nurse Practitioner Family; Visit Provider Nurse Practitioner | DX: I48.0 Paroxysmal atrial fibrillation (principal) ==

== ENCOUNTER 2025-03-13 11:46 | Outpatient (CLI) | payer MEDICARE, SELFPAY ==
--- OUTSIDE RECORDS SUMMARY | 2017-03-05 20:00 | XMS_ITS | Continuity of Care Document ---
Author Organization [facility] Address [address] [place] [address] Phone Care Team Providers Care Block Hand Name Role Phone Ramana Elaine MD Unavailable Unavailable Procedures Procedure Date [facility] Inter Advance Directives Directive Yes / No Effective Date File Name No Information Encounters Encounter Description Practice Location Reason(s) For Visit Diagnoses Date Provider Providers Copied on Encounter [facility], [address] [place], [id number], tel:[phone] [facility] [place] No Information 7 Chele Boles. [address], [place], [place], [id number] , . tel: [phone] Referring Provider: Juan Mendoza, [address], [address] . tel:[phone] Family History Family Member Type Diagnosis Age At Onset No Information Payers Payer name Insurance type Covered constitution party ID Authoriza tion(s) No Information Social History Type Description Quantity Date Captured Comments Sex Male Smoking Status No Information Chief Complaint And Reason For Visit No Information Reason For Referral Reason For Referral No Information History Of Present Illness Encounter Date Complaint History Of Prese nt Illness No Information Functional Status Date Functional Assessmen t No Information Instructions Date Instruction Additional Infor mation No Information Assessments Type Assessment Date No Information Patient Care Teams Name Effective Dates (start - stop) Status Members No Information
[2025-03-13 13:30] LABS: Microscopic, Urine URINE MICROSCOPIC (MICROSCOPIC)
[2025-03-13 14:02] LABS: Bilirubin,Urine Negative (Negative); Color,Urine YELLOW (Yellow); Glucose,Urine (UA) Negative (Negative); Ketones,Urine 1+ (Negative); Leukocyte Esterase,Urine Negative (Negative); PH,Urine 5.5 (5.0-8.5); Protein,Urine 2+ (Negative); Specific Gravity, Urine 1.025 (1.005-1.030); Urobilinogen,Urine 0.2 EU/dl (0.2)
[2025-03-13 14:20] LABS: Hemoglobin A1C 5.4 % (4.0-6.0)
[2025-03-13 14:27] LABS: RBC,Urine Occasional #/hpf (0-3)
[2025-03-13 15:14] LABS: Anion Gap 15.4 mEq/L (5-15); Blood Urea Nitrogen 15 mg/dl (9-20); Calcium 10.2 mg/dl (8.4-10.2); Carbon Dioxide 26 mmol/L (22.0-30.0); Chloride 102 mmol/L (98-107); Creatinine,Serum 1.20 mg/dl (0.66-1.25); Estimated Glomerular Filt Rate 65 ml/min (>60); GFR (African American) 79 ML/MIN (>60); Glucose 93 mg/dl (74-100); HDL Cholesterol 41 mg/dl (40-60); Potassium 4.4 mmoL/L (3.5-5.1); Sodium 139 mmol/L (136-145)
[2025-03-13 15:30] LABS: Free T4 (Free Thyroxine) 1.15 ng/dl (0.78-2.19)
[2025-03-13 15:41] LABS: Cholesterol 346 mg/dl (140-200); Triglycerides 636 mg/dl (30-150)
[2025-03-13 17:24] LABS: Thyroid Stimulating Hormone 1.36 uIU/mL (0.465-4.68)
[2025-03-13 17:43] LABS: Vitamin B12 311 pg/mL (239-931)
[2025-03-14 08:14] LABS: Testosterone,Total 154 ng/dL (264-916)
--- OUTSIDE RECORDS SUMMARY | 2025-03-17 11:50 | XMS_ITS | Encounter Summary ---
Author Organization [employer] ([place], [place], [place], [place]) Address [address] [place] [address] Care Team Providers Care Locomotive Pipe Fitter Name Role Phone Marly Michael Tania MARK Primary Care Provider Encounter Details Date Type Department Care Team (Late st Contact Info) Description 05/16/2020 Transcribed Document [facility] Family Medicine [address] [place] [address] ProviderAugustus MD [address] [place], [place] [id number] Social History Tobacco Use Types Packs/Day Years Used Date Smoking Tobacco: Never Assessed Sex and Gender Information Value Date Recorded Sex Assigned at Not on file Legal Sex Male 5:55 PM CDT Gender Identity Not on file Sexual Orientation Not on file documented as of this encounter Miscellaneous Notes * Cerner Conversion Note - Historical ProviderMD - 05/16/2020 2:00 AM CDT Maid Cleaning Cooking Details Entered On: 05/16/2020 5:54 EDT Performed On: 05/16/2020 2:00 EDT by Rigoberto Jasmine Rn-Traveler Order Details Order Detail : N/A Rigoberto Jasmine Rn-Traveler - 05/16/2020 5:54 EDT documented in this encounter Plan of Treatment Not on file documented as of this encounter Visit Diagnoses Not on filedocumented in this encounter Care Teams Locomotive Pipe Fitter Relationship Specialty Start Date End Date Michael Luke DO PCP - General General Internal Medicine 08/02/23 documented as of this encounter
--- OUTSIDE RECORDS SUMMARY | 2025-03-17 11:50 | XMS_ITS | Encounter Summary ---
Author Organization [employer] ([place], [place], [place], [place]) Address [address] [place] [address] Care Team Providers Care Animator Name Role Phone Savitapaulyfrandy Michael Tania MARK Primary Care Provider Encounter Details Date Type Department Care Team (Late st Contact Info) Description 05/16/2020 Transcribed Document [facility] Family Medicine [address] [place] [address] ProviderAugustus MD [address] [place] [address] Social History Tobacco Use Types Packs/Day Years Used Date Smoking Tobacco: Never Assessed Sex and Gender Information Value Date Recorded Sex Assigned at Not on file Legal Sex Male 5:55 PM CDT Gender Identity Not on file Sexual Orientation Not on file documented as of this encounter Miscellaneous Notes * Cerner Conversion Note - Augustus ProviderMD - 05/16/2020 10:00 AM CDT UM Authorization Entered On: 05/16/2020 10:00 EDT Performed On: 05/16/2020 10:00 EDT by Linsey Anderson Rn-Utilization Review Primary Insurance Authorization Authorization and Policy Numbers : Insurance 1 Health Plan: ANTHEM HMOPPO Policy Number: [id number] Authorization Number: Insurance 2 Health Plan: MEDICARE Policy Number: [id number] Authorization Number: Insurance Primary Name : ANTHEM HMOPPO Policy Number: [id number] Authorized Service Begin Date-Primary : 05/15/2020 EDT Historical Authorization Comments-Primary : No Authorization Comments Found Linsey Anderson, Rn-Utilization Review - 05/16/2020 10:00 EDT Electronically signed by [facility] Conversion Mechanical Assembler Cerner at 12/05/2022 2:17 PM CDT documented in this encounter Plan of Treatment Not on file documented as of this encounter Visit Diagnoses Not on filedocumented in this encounter Care Teams Animator Relationship Specialty Start Date End Date Michael Luke DO PCP - General General Internal Medicine 08/02/23 documented as of this encounter
--- OUTSIDE RECORDS SUMMARY | 2025-03-17 11:50 | XMS_ITS | Data Portability ---
Author Organization MD - [facility] & [facility] ADMIN Address [address] [place] [address] Assessment Encounter Date Assessment Date Assessment LastModified [...] Lab CBC w/ auto diff 2023 024 [email or web address] [facility], [address], [address], [place], [address], 4 15:51:00 CMP, serum or plasma 2023 024 [facility], [address], [address], [place], [address], 4 15:51:00 HbA1c (hemoglobin A1c), blood 2023 024 [email or web address] [facility], [address], [address], [place], [address], 4 15:51:00 iron + TIBC + ferritin, serum 2023 024 [email or web address] [facility], [address], [address], [place], [address], 4 15:51:00 vitamin D, 25-hydroxy, total, serum 2023 024 [email or web address] [facility], [address], [address], [place], [address], 4 15:51:00 vitamin A (retinol), serum 2023 024 [email or web address] [facility], [address], [address], [place], [address], 4 15:51:00 vitamin E, serum 2023 024 [facility], [address], [address], [place], [address], 4 15:51:01 PTH (parathyroi d hormone), intact, serum or plasma 2023 024 [email or web address] [facility], [address], [address], [place], [address], 4 15:51:01 TSH + free T4, serum 2023 024 [email or web address] [facility], [address], [address], [place], [address], 4 15:51:01 folate, serum 2023 024 [email or web address] [facility], [address], [address], [place], [address], 4 15:51:01 methylmalon ate, QN, serum or plasma 2023 024 [facility], [address], [address], [place], [address], 4 15:51:01 thiamine, QN, blood 2023 024 [email or web address] [facility], [address], [address], [place], [address], 4 15:51:01 lipid panel, serum 2023 024 [facility], [address], [address], [place], [address], 4 15:51:01 Referral None recorded. Procedures None recorded. Surgeries esophagogas troduodenos copy (SURG) 2023 024 [email or web address] Not available 4 14:04:20 Imaging XR, chest, 2 view 2023 024 [email or web address] [facility] (Centralized Scheduling), [address], [place], [address], 4 15:22:23 electrocard iogram, routine ECG, 12 leads min 2023 024 [email or web address] Not available 4 15:22:24 Medication Orders None recorded. Patient TargetsNo targets recorded. Patient InstructionsNo instructions recorded. Reason for Referral None Reported. 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 Procedures Surgical History Date Name Laterality Status Provider Name and Address Organization Details Recorded Time Shoulder joint surgery completed Roxy Allen [place] - [facility] & [place] 01/04/2024 10:11:22 percutaneous extraction of kidney stone with fragmentation procedure completed [address], [place], [address], [place] - [facility] & [place] 01/04/2024 10:35:[address], [place], [address] [place] - [facility] & [place] 01/04/2024 10:35:21 Imaging Results None recorded. Procedure Notes None recorded. Medical Equipment None Reported. Allergies Allergen ID Allergen Name Allergen Category Reaction Reaction Severity Criticality Documentation Date Start Date Code Code System Note Provider Name and Address Organization Details Recorded Time 511947 mineral oil / petrolatu m medicatio n Not available Not available Not available 01/04/2024 21307 6 RxNorm Roxyjhony conn, [place] - [facility] & [place] 4 09:57:41 Medications Name Sig Start Date [...] Body weight Heart rate Body temperature Systolic And Diastolic Provider Name and Address Organization Details Last Updated DateTime 4 182.88 cm 34.9 kg/m2 335764. 39 g 71 /min 98 [degF] 144/97 mm[Hg] Roxy Allen [facility] - [place] & [place] 4 09:56:59 Social History None recorded. Functional Status Question Answer Note LastModified by Organization D etails LastModified Time What is your level of alcohol consumption? None [email or web address] Information not available 01/04/2024 Mental Status None recorded. Family History Relationship Description Onset Age of this Age Resolved Age Notes LastModified by Organization Details LastModified Time Father Hypertensive disorder [email or web address] Not available 2023 10:10:25 Mother Diabetes mellitus Not available 2023 10:10:47 Paternal Grandmother Diabetes mellitus [email or web address] Not available 2023 10:10:47 Medical History Condition [...] SNOMED-CT Code Diagnosis ICD10 Code Diagnosis Note [id number] LADNON ZARCO RDN, LD [facility] [address] [place] [address] 01/04/2024 11:03:55 01/04/2024 12:56:38 Obesity 287954152 E66.9 Irregular meal frequency 382674903 Z72.4 Diet education 60355957 Z71.3 [id number] NOR[facility] Best [facility] [address] [place] [address] 01/04/2024 08:06:40 01/04/2024 10:48:03 Obesity 198642624 E66.9 The patient will be scheduled for [...] all testing has been completed Essential hypertension 14587498 I10 Borderline blood pressure reading in office today. Patient encouraged to continue to manage with PCP Hyperlipidemia 03674229 E78.5 Pre-surger y evaluation 282136812 Z01.818 Disorder o f function of stomach 329332110 K31.89 Coronary arteriosclerosis 62087661 I25.10 Atrial fibrillation 4943 6004 I48.91 Chronic anticoagul ation with warfarin. Patient is advised he will need perioperat roma coagulatio n management statement from treating MD Health Concerns Section Related Observation LastModified by Organization Detai ls LastModified Time None Recorded Concern Status LastModified by Organization Details LastModified Time None Recorded Advance Directives Directive None Recorded Payers Insurance Date Sequence Insurance Name Policy Number Policy Jewell Covered Member ID Jewell Member ID Guarantor Name 01/30/[address] [facility] (MEDICARE REPLACEMENT/A DVANTAGE - PPO) [id number] Dewayne Kurtz [id number] Dewayne Kurtz 01/30/2024 1 [facility] (MEDICARE REPLACEMENT/A DVANTAGE - HMO) Dewayne Kurtz [id number] Dewayne Kurtz 12/29/2023 1 [place] [id number] Mae Ramos [id number] Dewayne Kurtz 01/30/2024 1 [place] Dewayne Kurtz [id number] Dewayne Kurtz
--- OUTSIDE RECORDS SUMMARY | 2025-03-17 11:50 | XMS_ITS | Encounter Summary ---
Author Organization [employer] ([place], [place], [place], [place]) Address [address] [place] [address] Care Team Providers Care Parts Representative Name Role Phone Marly Michael Tania MARK Primary Care Provider Encounter Details Date Type Department Care Team (Late st Contact Info) Description 05/15/2020 Transcribed Document [facility] [address] [place] [address] ProviderAugustus MD [address] [place], [place] [address] Social History Tobacco Use Types Packs/Day Years Used Date Smoking Tobacco: Never Assessed Sex and Gender Information Value Date Recorded Sex Assigned at Not on file Legal Sex Male 5:55 PM CDT Gender Identity Not on file Sexual Orientation Not on file documented as of this encounter Miscellaneous Notes * Cerner Conversion Note - Augustus ProviderMD - 05/15/2020 11:00 AM CDT Neurodiagnostics Event Note Entered On: 05/15/2020 11:00 EDT Performed On: 05/15/2020 11:00 EDT by LINETTE LOJA Neurodiagnostic Tech Neurodiagnostics Event Note Neurodiagnostic Event Date/Time : 05/17/2020 11:00 EDT Neurodiagnostic Event Location : Neurodiagnostic department Neurodiagnostic Event Details : Procedure completed LINETTE LOJA Neurodiagnostic Tech - 05/15/2020 11:00 EDT documented in this encounter Plan of Treatment Not on file documented as of this encounter Visit Diagnoses Not on filedocumented in this encounter Care Teams Parts Representative Relationship Specialty Start Date End Date Michael Luke DO PCP - General General Internal Medicine 08/02/23 documented as of this encounter
--- OUTSIDE RECORDS SUMMARY | 2025-03-17 11:50 | XMS_ITS | Encounter Summary ---
Author Organization [employer] ([place], [place], [place], [place]) Address [address] [place] [address] Care Team Providers Care Staffing Recruiter Name Role Phone Michael Luke Tania MARK Primary Care Provider Encounter Details Date Type Department Care Team (Late st Contact Info) Description 05/15/[address] [facility] [place] [facility] [place] [address] ProviderAugustus MD [address] [place], [place] [address] Social History Tobacco Use Types Packs/Day Years Used Date Smoking Tobacco: Never Assessed Sex and Gender Information Value Date Recorded Sex Assigned at Not on file Legal Sex Male 5:55 PM CDT Gender Identity Not on file Sexual Orientation Not on file documented as of this encounter Miscellaneous Notes * Cerner Conversion Note - Augustus ProviderMD - 05/15/2020 4:39 PM CDT Admission History, Adult Entered On: 05/15/2020 16:56 EDT Performed On: 05/15/2020 16:39 EDT by Krupa Manning RN Advance Directive Patient has Advance Directive *Q : No, patient refuses Advance Directive information Krupa Manning RN - 05/15/2020 16:39 EDT Anesthesia/Transfusion History Family History of Anesthesia Reaction : No prior transfusion(s) Transfusion History : Prior anesthesia without reaction Family History of Anesthesia Reaction : None Krupa Manning RN - 05/15/2020 16:39 EDT Anticipated Discharge Needs Discharge To, Anticipated : Home Anticipated Discharge Needs at This Time : None Krupa Manning RN - 05/15/2020 16:39 EDT Education Topics, Admission Orientation DCP GENERIC CODE Advance Directives : Verbalizes understanding Allergy Band Applied : Verbalizes understanding Assessment/Vital Signs : Verbalizes understanding Bed Control : Verbalizes understanding Call Light : Verbalizes understanding Confidentiality : Verbalizes understanding Diet/Room Service : Verbalizes understanding Fall Prevention : Verbalizes understanding Hand Hygiene : Verbalizes understanding Healthcare Provider Visit : Verbalizes understanding ID Band Applied : Verbalizes understanding Orientation to Room/Bathroom : Verbalizes understanding Patient Bill of Rights : Verbalizes understanding Patient Rights/Responsibilities : Verbalizes understanding Patient Safety : Verbalizes understanding Personal Privacy Code : Verbalizes understanding Rapid Response Initiated by Patient/Family : Verbalizes understanding Rounding : Verbalizes understanding Siderails use/risks : Verbalizes understanding Skin Precautions : Verbalizes understanding Television/Phone : Verbalizes understanding Visiting Policy : Verbalizes understanding Krupa Manning RN - 05/15/2020 16:39 EDT Functional Assessment Living Situation : Home Patient Lives With : Spouse Current Home Treatments : CPAP Krupa Manning RN - 05/15/2020 16:39 EDT General Info Preferred Name : dewayne Legal Guardian : No Support Person/Patient Family Service Aide : No Want Family/Rep/Phys Notified of Admit : No Emergency Contact #1 : Mae Ramos Emergency Contact #1 Emergency Contact #1 Relationship : Emergency Contact #2 : n Emergency Contact #2 Phone Number : n Emergency Contact #2 Relationship : n Primary Language : Chinese Preferred Communication Mode : Verbal Communication Barrier : None Rn Emergency Room Needed : No Krupa Manning RN - 05/15/2020 16:39 EDT Fall Risk Scales ABCs Fall Injury Risk Identification : None REYNOSO Hx Falls Immediate/Within 3 Months : No [place] Secondary Diagnosis : Yes REYNOSO Use of Ambulatory Aid : None REYNOSO IV Therapy or IV Access : No [place] Gait/Transferring : Normal, bedrest, immobile [place] Mental Status : Oriented to own ability [place] Fall Risk Score : 15 REYNOSO Fall Scale Risk Level : 0-24 Low Risk [place] Fall Interventions : Adequate lighting, Assistive devices within reach, Bed in low position, Call device within reach, Hourly comfort/safety rounds, Non-slip footwear, Personal items within reach, Reinforced to call for assistance before getting out of bed, Room free of clutter/spills, Upper side-rails up, Wheels locked, Wires/Cords secured Barriers to Learning : None evident Learning Style Preferences Patient : Printed materials, Verbal explanation Krupa Manning RN - 05/15/2020 16:39 EDT Health Histories Smoking Status : Never (less than 100 in lifetime; none in last 30 days) Smokeless Tobacco Status : Never Krupa Manning RN - 05/15/2020 16:39 EDT Social History (As Of: 05/15/2020 16:56:30 EDT) Tobacco: Smoking Status Never smoker. (Last Updated: 12/13/2016 14:48:08 EDT by MONSE BAL, LOIDA) Alcohol: Alcohol Use History No. (Last Updated: 12/13/2016 14:48:10 EDT by MONSE BAL, LOIDA) Substance Abuse: Use in Last 12 Months: No. (Last Updated: 12/13/2016 14:48:13 EDT by MONSE BAL, LOIDA) Height and Weight, Clinical Dosing Height Source : Stated Height Entry Format : [place] Height, Feet : 6 ft(Converted to: 183 cm, 72 Inch) Height, Inches : 0 Inch(Converted to: 0 ft 0 Inch, 0.00 cm) Clinical Height : 182.88 cm Weight Source : Bed scale Weight Entry Format : [place] Clinical Dosing Weight : 113.64 kg Weight, Pounds : 250 lb Body Surface Area (BSA) : 2.34 m2 Body Mass Index : 34 kg/m2 (HI) [place] Body Weight : 77 kg Krupa Manning RN - 05/15/2020 16:39 EDT Infectious Disease History Has the patient ever been tested for COVID-19? : Yes, Patient stated results Negative Date of COVID-19 test known? : No Does patient have symptoms of COVID-19? : No COVID19 Screening : No Experiencing Infectious Disease Symptoms : No symptoms Physical contact outside [place] in the last 30 days : No Infectious Disease History : Chicken pox/Shingles Tuberculosis Symptoms : None Krupa Manning RN - 05/15/2020 16:39 EDT Influenza Vaccine Asmt, Adult Previous Vaccines from Immunization Schedule : No qualifying data available. Influenza Immunization, Current Season : No Inactivated Flu Vaccine Contraindications : No contraindications to inactivated influenza vaccine Transplant Workup/Recent Transplant : No Order for Influenza Vaccine : Declined Vaccination Krupa Manning RN - 05/15/2020 16:39 EDT Pneumococcal Vaccine Previous Vaccines from Immunization Schedule : No qualifying data available. Pneumonia Immunization Received : Yes Krupa Manning RN - 05/15/2020 16:39 EDT Nutrition History Adaptive Feeding Equipment : Regular, Low cholesterol, Low fat Eating Poorly Due to Decreased Appetite : No Unplanned Weight Loss in Past 3-6 Months : No Malnutrition Screening Tool Total(mal) : 0 Malnutrition Screening Tool Risk Level : Patient not at risk Krupa Manning RN - 05/15/2020 16:39 EDT [place] Suicide Severity Rating Scale (C-SSRS) CSSRS Past Month Wish to be : No CSSRS Past Month Suicidal Thoughts : No CSSRS Lifetime Suicide Behavior : No Suicide Severity Rating Score : 0 Suicide Severity Rating : No Additional Care Required at this time Krupa Manning RN - 05/15/2020 16:39 EDT Psychosocial History Chronic/Terminal Illness w/Freq Visits : No Do You Have a History of the Following? : Patient denies history Currently in Unsafe Situation : No Krupa Manning RN - 05/15/2020 16:39 EDT Sleep Apnea Risk Assmt BiPAP/CPAP Ordered for Home Use : Yes Hx of Obstructive Sleep Apnea Diagnosis : Yes BiPAP/CPAP Used at Home : Yes Age over 50 Years Old : No Gender Male : Yes Krupa Manning RN - 05/15/2020 16:39 EDT Valuables and Belongings Valuables and Belongings : Clothing, Jewelry, Personal devices, Personal items, Medications Clothing : Common streetwear Clothing Disposition : Bedside Personal Device Disposition : With patient Jewelry : Bracelet, Ring-plain band, Watch Jewelry Disposition : With patient Personal Devices : Glasses Personal Items : Cell phone, Other: transistor tester, ear phones Personal Items Disposition : With patient Medication Disposition : With patient Medication Brought With Patient : Yes Krupa Manning RN - 05/15/2020 16:39 EDT documented in this encounter Plan of Treatment Not on file documented as of this encounter Visit Diagnoses Not on filedocumented in this encounter Care Teams Staffing Recruiter Relationship Specialty Start Date End Date Michael Luke DO PCP - General General Internal Medicine 08/02/23 documented as of this encounter
--- OUTSIDE RECORDS SUMMARY | 2025-03-17 11:50 | XMS_ITS | Encounter Summary ---
Author Organization [employer] ([place], [place], [place], [place]) Address [address] [place] [address] Care Team Providers Care Music Autographer Name Role Phone NirmalandreafrandyMichael Tania MARK Primary Care Provider Encounter Details Date Type Department Care Team (Late st Contact Info) Description 05/17/2020 Transcribed Document [facility] [place] [address] [place] [address] ProviderAugustus MD [address] [place] [address] Social History Tobacco Use Types Packs/Day Years Used Date Smoking Tobacco: Never Assessed Sex and Gender Information Value Date Recorded Sex Assigned at Not on file Legal Sex Male 5:55 PM CDT Gender Identity Not on file Sexual Orientation Not on file documented as of this encounter Miscellaneous Notes * Cerner Conversion Note - Augustus ProviderMD - 05/17/2020 10:51 AM CDT Nursing Discharge Summary Entered On: 05/17/2020 10:52 EDT Performed On: 05/17/2020 10:51 EDT by Krupa Manning purchasing and claims supervisor Documentation Discharge Date/Time : 05/17/2020 10:51 EDT Patient Disposition, General : Discharge Discharge To : Home with ambulatory/outpatient follow-up Mode Of Departure, General Discharge : Private vehicle Accompanied By, Discharge : Spouse IV Discontinued : Not applicable Personal Belongings With Patient : Yes Prescriptions Given to Patient : No Discharge Instructions Reviewed With, Opportunity For Questions Given : Patient Patient Education Completed : Yes Teaching Method : Explanation, Printed materials Teaching Evaluation : Verbalizes understanding Education Comment : explained Krupa Mullins RN - 05/17/2020 10:51 EDT Electronically signed by Frankie [facility] Conversion Team Sports Sales Associate Cerner at 12/05/2022 2:31 PM CDT documented in this encounter Plan of Treatment Not on file documented as of this encounter Visit Diagnoses Not on filedocumented in this encounter Care Teams Music Autographer Relationship Specialty Start Date End Date Michael Luke DO PCP - General General Internal Medicine 08/02/23 documented as of this encounter
--- OUTSIDE RECORDS SUMMARY | 2025-03-17 11:50 | XMS_ITS | Encounter Summary ---
Author Organization [employer] ([place], [place], [place], [place]) Address [address] [place] [address] Care Team Providers Care Home Economics Extension Worker Name Role Phone MarlyMichael Tania MARK Primary Care Provider Encounter Details Date Type Department Care Team (Late st Contact Info) Description 05/17/2020 Transcribed Document [facility] [place] [address] [place], [place] [id number] ProviderAugustus MD [address] [place] [address] Social History Tobacco Use Types Packs/Day Years Used Date Smoking Tobacco: Never Assessed Sex and Gender Information Value Date Recorded Sex Assigned at Not on file Legal Sex Male 5:55 PM CDT Gender Identity Not on file Sexual Orientation Not on file documented as of this encounter Miscellaneous Notes * Cerner Conversion Note - Historical ProviderMD - 05/17/2020 10:12 AM CDT DATE OF ADMISSION: 05/15/2020 DATE OF DISCHARGE: 05/17/2020 FINAL DIAGNOSIS: Intractable localization related epilepsy. HISTORY: This is a 39-year-old man with recurrent seizures for a few years. He has had relatively well controlled seizures characterized on occasion by staring and unresponsiveness, and on other occasions by loss of consciousness with subsequent generalized stiffening and jerking. He had a recent episode that occurred after coming out of anesthesia for surgical procedure. There is also some concern about nocturnal seizures. PAST MEDICAL HISTORY: 1. Hypertension. 2. Intractable migraine. HOSPITAL COURSE: The patient was admitted and had video EEG monitoring. There was no clinical event. EEG recordings showed no epileptiform abnormality or electrographic ictal discharge. DISPOSITION: I discussed the results of monitoring with the patient. I told him that this study showed no evidence for unrecognized seizures. We agreed to make no change in his regimen. PHYSICAL EXAMINATION: VITAL SIGNS: On the day of discharge, blood pressure 138/91, heart rate 71 per minute and regular. HEENT: Pupils equal and reactive. LUNGS: Clear. HEART: Regular rate and rhythm. Normal peripheral pulses. NEUROLOGIC: He is alert and well oriented. Normal language functions. Normal cranial nerves. Normal motor exam. DISCHARGE INSTRUCTIONS: 1. Amlodipine 10 mg daily. 2. Carvedilol 25 mg twice daily. 3. Fenofibrate 135 mg daily. 4. Oxcarbazepine 450 mg twice daily. 5. Spironolactone 25 mg daily. 6. Sumatriptan 50 mg p.r.n. FOLLOWUP: Follow up with Dr. Chavez in 6 months. /[id number] MD MADDY Pérez/AQ / MADDY / MODL /[id number] Electronically signed by Frankie, [facility] Conversion Environmental Remediation Engineer Cerner at 12/05/2022 2:34 PM CDT documented in this encounter Plan of Treatment Not on file documented as of this encounter Visit Diagnoses Not on filedocumented in this encounter Care Teams Home Economics Extension Worker Relationship Specialty Start Date End Date Michael Luke DO PCP - General General Internal Medicine 08/02/23 documented as of this encounter
--- OUTSIDE RECORDS SUMMARY | 2025-03-17 11:50 | XMS_ITS | Referral Summary ---
Author Organization [employer] ([place], [place], [place], [place]) Address [address] [place] [address] Care Team Providers Care Materials Planning Manager Name Role Phone Michael Luke DO Primary Care Provider Allergies No known active allergies Medications hydroCHLOROthia zide (HYDRODIURIL) 25 MG tablet daily. 10/04/19 23 Active metFORMIN (GLUCOPHAGE) 500 MG tablet 2 (two) times daily. 10/02/19 23 Active irbesartan (AVAPRO) 300 MG tablet Take 1 tablet (300 mg total) by mouth daily. 05/02/20 23 Active labetaloL (NORMODYNE) 200 MG tablet Take 1 tablet (200 mg total) by mouth 2 (two) times daily. 05/11/20 23 Active atorvastatin (LIPITOR) 80 MG tablet Take 1 tablet (80 mg total) by mouth nightly. 06/21/20 23 Active carvediloL (COREG) 25 MG tablet Take 1 tablet (25 mg total) by mouth. 10/04/19 23 Active dilTIAZem (CARDIZEM CD) 240 MG 24 hr capsule Take 1 capsule (240 mg total) by mouth daily. 06/29/20 23 Active spironolactone (ALDACTONE) 100 MG tablet Take 1 tablet (100 mg total) by mouth daily. 07/26/20 23 Active icosapent ethyL (Vascepa) 1 gram capsule Take 2 capsules (2 g total) by mouth 2 (two) times daily. Active rizatriptan (Maxalt) 10 MG tabletIndicatio ns:Chronic migraine with aura without status migrainosus, not intractable Take 1 tablet (10 mg total) by mouth as needed (at onset of migraines, may repeat q2h x 1) Do NOT exceed thirty (30) mg in 24 hours.. 9 tablet 5 08/02/20 Active erenumab-aooe (Aimovig Autoinjector) 140 mg/mL AtInIndications :Chronic migraine with aura without status migrainosus, not intractable Inject 140 mg subcutaneously every 28 days. 1 mL 11 08/03/20 Active OXcarbazepine (TRILEPTAL) 300 MG tablet TAKE 2 TABLETS BY MOUTH 2 TIMES DAILY. 360 tablet 3 02/11/20 Active Social History Tobacco Use Types Packs/Day Years Used Date Smoking Tobacco: Never Smokeless Tobacco: Never Tobacco Cessation:Counseling Given: Not Answered Alcohol Use Standard Drinks/Week Comments Never 0 (1 standard drink = 0.6 oz pur e alcohol) Food Insecurity Answer Date Recorded Food run out past 12 months Not on file 08/21 Food did not last past 12 months Not on file 09/01/2023 Employment Answer Date Recorded Help finding and keeping a job Not on file 0 09/01/2023 Family and Community Support Answer Bo e Recorded Help with Day to Day Activities Not on file 09/01/2023 Feeling Lonely or Isolated Not on file 09/01 Educational Attainment Answer Date Kevin rded Speak language other than Panamanian at home Not on file 09/01/2023 Want help with school or training Not on file 09/01/2023 Substance Use Answer Date Recorded Used prescription meds for non-medical reasons N ot on file 09/01/2023 Used illegal drugs past 12 months Not on file 09/01/2023 Sex and Gender Information Value Date Recorded Sex Assigned at Not on file Legal Sex Male 5:55 PM CDT Gender Identity Not on file Sexual Orientation Not on file Last Filed Vital Signs Vital Sign Reading Time Taken Comments Blood Pressure 159/108 08/02/2023 3:21 PM EST Pulse 83 08/02/2023 3:21 PM EST Temperature - - Respiratory Rate - - Oxygen Saturation - - Inhaled Oxygen Concentration - - Weight 117.9 kg (260 lb) 08/02/2023 3:21 PM EST Height 182.9 cm (6') 08/02/2023 3:21 PM EST Body Mass Index 35.26 08/02/2023 3:21 PM EST Plan of Treatment Not on file Insurance [employer] MEDICARE HMO Care Teams Materials Planning Manager Relationship Specialty Start Date End Date Michael Luke DO PCP - General General Internal Medicine 08/02/23
--- OUTSIDE RECORDS SUMMARY | 2025-03-17 11:50 | XMS_ITS | Encounter Summary ---
Author Organization [employer] ([place], [place], [place], [place]) Address [address] [place] [address] Care Team Providers Care [facility] Sales Name Role Phone SavitapaulyfrandyMichael Tania MARK Primary Care Provider Encounter Details Date Type Department Care Team (Late st Contact Info) Description 05/15/2020 Transcribed Document [facility] [place] [address] [place] [address] ProviderAugustus MD [address] [place] [address] Social History Tobacco Use Types Packs/Day Years Used Date Smoking Tobacco: Never Assessed Sex and Gender Information Value Date Recorded Sex Assigned at Not on file Legal Sex Male 5:55 PM CDT Gender Identity Not on file Sexual Orientation Not on file documented as of this encounter Miscellaneous Notes * [employer]ner Conversion Note - Augustus ProviderMD - 05/15/2020 10:29 AM CDT Pain Assessment Entered On: 05/16/2020 20:11 EDT Performed On: 05/16/2020 21:11 EDT by Deidra Allison RN Intervention Information: ibuprofen Performed by Deidra Allison RN on 05/16/2020 20:11:00 EDT ibuprofen,600mg Oral,Headache/Pain Pain Assessment Pain Assessment : Follow-up assessment Pain Scale Goal : 0 Pain Scale Used : 0-10 Scale Location : Headache, frontal Onset : Acute Deidra Allison RN - 05/16/2020 20:11 EDT Pain Scale Intensity : 3 Deidra Allison RN - 05/16/2020 20:11 EDT Image 4 - Images currently included in the form version of this document have not been included in the text rendition version of the form. documented in this encounter Plan of Treatment Not on file documented as of this encounter Visit Diagnoses Not on filedocumented in this encounter Care Teams [facility] Sales Relationship Specialty Start Date End Date Michael Luke DO PCP - General General Internal Medicine 08/02/23 documented as of this encounter
--- OUTSIDE RECORDS SUMMARY | 2025-03-17 11:50 | XMS_ITS | Encounter Summary ---
Author Organization [facility] ([place], [place], [place], [place]) Address [address] [place] [address] Care Team Providers Care Examiner Rating Clerk Name Role Phone SavitapaulyfrandyMichael Tania MARK Primary Care Provider Encounter Details Date Type Department Care Team (Late st Contact Info) Description 05/17/2020 Transcribed Document [facility] [place] Family Medicine [address] [place] [address] ProviderAugustus MD [address] [place], [place] [address] Social History Tobacco Use Types Packs/Day Years Used Date Smoking Tobacco: Never Assessed Sex and Gender Information Value Date Recorded Sex Assigned at Not on file Legal Sex Male 5:55 PM CDT Gender Identity Not on file Sexual Orientation Not on file documented as of this encounter Miscellaneous Notes * Cerner Conversion Note - Augustus Briseno MD - 05/17/2020 10:51 AM CDT Patient Education Materials Follows: Seizure, Adult A seizure is a sudden burst of abnormal electrical activity in the brain. Seizures usually last from 30 seconds to 2 minutes. The abnormal activity temporarily interrupts normal brain function. A seizure can cause many different symptoms depending on where in the brain it starts. What are the causes? Common causes of this condition include: ??? Fever or infection. ??? Brain abnormality, injury, bleeding, or tumor. ??? Low blood sugar. ??? Metabolic disorders or other conditions that are passed from parent to child (are inherited). ??? Reaction to a substance, such as a drug or a medicine, or suddenly stopping the use of a substance (withdrawal). ??? Stroke. ??? Developmental disorders such as autism or cerebral palsy. In some cases, the cause of this condition may not be known. Some people who have a seizure never have another one. Seizures usually do not cause brain damage or permanent problems unless they are prolonged. A person who has repeated seizures over time without a clear cause has a condition called epilepsy. What increases the risk? You are more likely to develop this condition if you have: ??? A family history of epilepsy. ??? Had a tonic-clonic seizure in the past. This is a type of seizure that involves whole-body contraction of muscles and a loss of consciousness. ??? Autism, cerebral palsy, or other brain disorders. ??? A history of head trauma, lack of oxygen at , or strokes. What are the signs or symptoms? There are many different types of seizures. The symptoms of a seizure vary depending on the type of seizure you have. Examples of symptoms during a seizure include: ??? Uncontrollable shaking (convulsions). ??? Stiffening of the body. ??? Loss of consciousness. ??? Head nodding. ??? Staring. ??? Not responding to sound or touch. ??? Loss of bladder or bowel control. Some people have symptoms right before a seizure happens (aura) and right after a seizure happens (postictal). Symptoms before a seizure may include: ??? Fear or anxiety. ??? Nausea. ??? Feeling like the room is spinning (vertigo). ??? A feeling of having seen or heard something before (d?j? vu). ??? Odd tastes or smells. ??? Changes in vision, such as seeing flashing lights or spots. Symptoms after a seizure may include: ??? Confusion. ??? Sleepiness. ??? Headache. ??? Weakness on one side of the body. How is this diagnosed? This condition may be diagnosed based on: ??? A description of your symptoms. Video of your seizures can be helpful. ??? Your medical history. ??? A physical exam. You may also have tests, including: ??? Blood tests. ??? CT scan. ??? MRI. ??? Electroencephalogram (EEG). This test measures electrical activity in the brain. An EEG can predict whether seizures will return (recur). ??? A spinal tap (also called a lumbar puncture). This is the removal and testing of fluid that surrounds the brain and spinal cord. How is this treated? Most seizures will stop on their own in under 5 minutes, and no treatment is needed. Seizures that last longer than 5 minutes will usually need treatment. Treatment can include: ??? Medicines given through an IV. ??? Avoiding known triggers, such as medicines that you take for another condition. ??? Medicines to treat epilepsy (antiepileptics), if epilepsy caused your seizures. ??? Surgery to stop seizures, if you have epilepsy that does not respond to medicines. Follow these instructions at home: Medicines ??? Take qccf-drr-dcgauaq and prescription medicines only as told by your health care provider. ??? Avoid any substances that may prevent your medicine from working properly, such as alcohol. Activity ??? Do not drive, swim, or do any other activities that would be dangerous if you had another seizure. Wait until your health care provider says it is safe to do them. ??? If you live in the [place] check with your local DMV (department of motor vehicles) to find out about local driving laws. Each state has specific rules about when you can legally return to driving. ??? Get enough rest. Lack of sleep can make seizures more likely to occur. Educating others Teach friends and family what to do if you have a seizure. They should: ??? Lay you on the ground to prevent a fall. ??? Cushion your head and body. ??? Loosen any tight clothing around your neck. ??? Turn you on your side. If vomiting occurs, this helps keep your airway clear. ??? Not hold you down. Holding you down will not stop the seizure. ??? Not put anything into your mouth. ??? Know whether or not you need emergency care. For example, they should get help right away if you have a seizure that lasts longer than 5 minutes or have several seizures in a row. ??? Stay with you until you recover. General instructions ??? Contact your health care provider each time you have a seizure. ??? Avoid anything that has ever triggered a seizure for you. ??? Keep a seizure diary. Record what you remember about each seizure, especially anything that might have triggered the seizure. ??? Keep all follow-up visits as told by your health care provider. This is important. Contact a health care provider if: ??? You have another seizure. ??? You have seizures more often. ??? Your seizure symptoms change. ??? You continue to have seizures with treatment. ??? You have symptoms of an infection or illness. This might increase your risk of having a seizure. Get help right away if: ??? You have a seizure that: ? Lasts longer than 5 minutes. ? Is different than previous seizures. ? Leaves you unable to speak or use a part of your body. ? Makes it harder to breathe. ??? You have: ? A seizure after a head injury. ? Multiple seizures in a row. ? Confusion or a severe headache right after a seizure. ??? You do not wake up immediately after a seizure. ??? You injure yourself during a seizure. These symptoms may represent a serious problem that is an emergency. Do not wait to see if the symptoms will go away. Get medical help right away. Call your local emergency services (911 in the [place] Do not drive yourself to the hospital. Summary ??? Seizures are caused by abnormal electrical activity in the brain. The activity disrupts normal brain function and can cause various symptoms, such as convulsions, abnormal movements, or a change in consciousness. ??? There are many causes of seizures, including illnesses, medicines, genetic conditions, head injuries, strokes, tumors, substance abuse, or substance withdrawal. ??? Most seizures will stop on their own in under 5 minutes. Seizures that last longer than 5 minutes are a medical emergency and require immediate treatment. ??? Many medicines are used to treat seizures. Take kean-hca-uknwxal and prescription medicines only as told by your health care provider. This information is not intended to replace advice given to you by your health care provider. Make sure you discuss any questions you have with your health care provider. Document Released: 08/04/2001 Document Revised: 10/25/2019 Document Reviewed: 10/25/2019 [employer] Patient Education ? 2019 [employer] documented in this encounter Plan of Treatment Not on file documented as of this encounter Visit Diagnoses Not on filedocumented in this encounter Care Teams Examiner Rating Clerk Relationship Specialty Start Date End Date Michael Luke DO PCP - General General Internal Medicine 08/02/23 documented as of this encounter
--- OUTSIDE RECORDS SUMMARY | 2025-03-17 11:50 | XMS_ITS | Clinical Summary ---
Author Organization [facility] Address [address] [place] [id number] Care Team Providers Care Evening Or Night Nurse Supervisor Name Role Phone Michael Luke DO Primary Care Provider + Allergies No known active allergies Medications lisinopril-hydro chlorothiazide (PRINZIDE, ZESTORETIC) 20-12.5 mg per tablet Take 1 Tab by mouth daily. Active Social History Tobacco Use Types Packs/Day Years Used Date Smoking Tobacco: Never Alcohol Use Standard Drinks/Week Comments No 0 (1 standard drink = 0.6 oz pur e alcohol) Sex and Gender Information Value Date Recorded Sex Assigned at Not on file Legal Sex Male 10:59 AM EDT Gender Identity Not on file Sexual Orientation Not on file Last Filed Vital Signs Vital Sign Reading Time Taken Comments Blood Pressure 146/95 05/31/2015 2:53 PM EDT Pulse 85 05/31/2015 2:53 PM EDT Temperature 36.8 C (98.2 F) 05/31/2015 11:22 AM EDT Respiratory Rate 18 05/31/2015 2:53 PM EDT Oxygen Saturation 98% 05/31/2015 2:53 PM EDT Inhaled Oxygen Concentration - - Weight 99.8 kg (220 lb) 05/31/2015 11:14 AM EDT Height 182.9 cm (6') 05/31/2015 11:14 AM EDT Body Mass Index 29.84 05/31/2015 11:14 AM EDT Plan of Treatment Not on file Care Teams Evening Or Night Nurse Supervisor Relationship Specialty Start Date End Date Michael Luke DO PCP - General Internal Medicine 05/31/15
--- OUTSIDE RECORDS SUMMARY | 2025-03-17 11:50 | XMS_ITS | Encounter Summary ---
Author Organization [employer] ([place], [place], [place], [place]) Address [address] [place] [address] Care Team Providers Care Household Cook Name Role Phone Michael Luke Tania MARK Primary Care Provider Encounter Details Date Type Department Care Team (Late st Contact Info) Description 05/16/2020 Transcribed Document [facility] [place] Family Medicine [facility] [place] [address] Augustus Briseno MD [address] [place] [address] Social History Tobacco Use Types Packs/Day Years Used Date Smoking Tobacco: Never Assessed Sex and Gender Information Value Date Recorded Sex Assigned at Not on file Legal Sex Male 5:55 PM CDT Gender Identity Not on file Sexual Orientation Not on file documented as of this encounter Miscellaneous Notes * Cerner Conversion Note - Augustus Briseno MD - 05/16/2020 9:49 AM CDT DATE OF SERVICE: 05/15/2020 REPORT TYPE: EEG REFERRING PHYSICIAN: Aura Chavez MD REPORT TITLE: Video Electroencephalogram Report STUDY DURATION: One day. HISTORY: This is a 39-year-old man with intractable epilepsy being evaluated for exacerbation of seizures. EEG VIDEO MONITORING METHODOLOGY: Time-locked EEG-video monitoring was performed using the 32-channel Bikmo monitoring system. The seizure detection computer was used for detection of ictal discharges (subclinical and clinical), interictal discharges, and to record ictal events that were documented by depression of the event button in the patient's room. Analyses of the monitoring data were performed using the following techniques: Review of the relevant EEG-video data. Review of events detected by the computer system in detail. Review of clinical seizures, with both detailed review of EEG and video and playback using multiple montages. A variety of referential and bipolar montages were used. CLINICAL AND EEG ANALYSIS: There was no event reported during the period of monitoring. TIME SAMPLES: The recording was reviewed. During wakefulness, 10.5 to 11 Hz activity is seen posteriorly. Lower amplitude faster activity in the beta range is noted with a wider distribution. 4 to 5 Hz theta waves and occasional 2 to 3 Hz delta waves are noted at F8-T8. 4 to 6 Hz theta waves were noted intermittently at F7-T7 during periods of drowsiness. During sleep, well-formed sleep spindles are seen in both hemispheres. SPIKE DETECTION: The spike detection program was activated during the period of monitoring and revealed no abnormal paroxysmal activity. EEG DIAGNOSIS: This is an abnormal video EEG study because of focal slow wave activity noted at F8-T8. CLINICAL INTERPRETATION: There was no event reported during the period of monitoring. Continuous EEG recordings showed no electrographic ictal discharge or other epileptiform abnormality. The study therefore does not provide definitive evidence to support the diagnosis of epilepsy. However, that diagnosis cannot be excluded, particularly in the absence of a recorded event. EEG recordings showed focal slow-wave activity in the right anterior temporal electrodes consistent with focal cerebral dysfunction in the right anterior temporal region. /[id number] Aura Chavez MD TAF/AQ / TAF / MODL /[id number] Electronically signed by Frankie [facility] Conversion Computing Consultant Cerner at 12/05/2022 2:27 PM CDT documented in this encounter Plan of Treatment Not on file documented as of this encounter Visit Diagnoses Not on filedocumented in this encounter Care Teams Household Cook Relationship Specialty Start Date End Date Michael Luke DO PCP - General General Internal Medicine 08/02/23 documented as of this encounter
--- OUTSIDE RECORDS SUMMARY | 2025-03-17 11:50 | XMS_ITS | Encounter Summary ---
Author Organization [employer] ([place], [place], [place], [place]) Address [address] [place] [address] Care Team Providers Care Program Director Group Work Name Role Phone SavitapaulyfrandyMichael Tania MARK Primary Care Provider Encounter Details Date Type Department Care Team (Late st Contact Info) Description 05/17/2020 Transcribed Document [facility] [place] Family Medicine [address] [place] [address] ProviderAugustus MD [address], [place] [id number] Social History Tobacco Use Types Packs/Day Years Used Date Smoking Tobacco: Never Assessed Sex and Gender Information Value Date Recorded Sex Assigned at Not on file Legal Sex Male 5:55 PM CDT Gender Identity Not on file Sexual Orientation Not on file documented as of this encounter Miscellaneous Notes * Cerner Conversion Note - Augustus ProviderMD - 05/17/2020 10:51 AM CDT Stroke/Warfarin Instructions Entered On: 05/17/2020 10:51 EDT Performed On: 05/17/2020 10:51 EDT by Krupa Manning RN Stroke/Warfarin Instructions Stroke/TIA Discharge Ins : N/A Warfarin Discharge Ins : N/A Krupa Manning RN - 05/17/2020 10:51 EDT documented in this encounter Plan of Treatment Not on file documented as of this encounter Visit Diagnoses Not on filedocumented in this encounter Care Teams Program Director Group Work Relationship Specialty Start Date End Date Michael Luke DO PCP - General General Internal Medicine 08/02/23 documented as of this encounter
--- OUTSIDE RECORDS SUMMARY | 2025-03-17 11:50 | XMS_ITS | Encounter Summary ---
Author Organization [facility] ([place], [place], [place], [place]) Address [address] [place] [address] Care Team Providers Care Senior Compensation Analyst Name Role Phone Michael Luke DO Primary Care Provider Encounter Details Date Type Department Care Team (Late st Contact Info) Description 05/17/2020 Transcribed Document [facility] [place] Family Medicine [address] [place] [address] ProviderAugustus MD [address] [place], [place] [id number] Social History Tobacco Use Types Packs/Day Years Used Date Smoking Tobacco: Never Assessed Sex and Gender Information Value Date Recorded Sex Assigned at Not on file Legal Sex Male 5:55 PM CDT Gender Identity Not on file Sexual Orientation Not on file documented as of this encounter Miscellaneous Notes * Cerner Conversion Note - Augustus Briseno MD - 05/17/2020 10:10 AM CDT [address] , [place] [address] Patient Copy Patient Information: Name: DEWAYNE KURTZ Current Date: 05/17/2020 10:10:17 : 1980 Patient Address: [place] [address] Patient Attending Physician: KELSEY AVALOS MD-CYNTHIA Primary Care Provider: WHITNEY LUKE (REF), MD-INT Primary Care Provider 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 carvedilol (Coreg 25 mg oral tablet) 1 Tablet(s) Oral Two Times A Day. fenofibrate 135 Milligram(s) Oral Every Day. OXcarbazepine (OXcarbazepine 300 mg oral tablet) 1.5 Tablet(s) Oral Two Times A Day. spironolactone (spironolactone 25 mg oral tablet) 1 Tablet(s) Oral Every Day. SUMAtriptan (SUMAtriptan 50 mg oral tablet) 1 Tablet(s) Oral One Time Order as needed as needed for migraine headache. may repeat dose after 2 hours up to a maximum of 200 mg in 24 hours. Patient Allergies: No Known Allergies Medication Instructions: Take your medications faithfully. Do NOT skip medication. Do NOT stop taking medications without the direction of a physician. Carry a list of your medications with you at all times, and take this medication list with you to your first follow up visit. Report any side effects. Avoid herbal remedies unless discussed with your physician. As part of your treatment plan, your physician may have prescribed a limited course of a controlled substance. This medication may be given to help people with moderate or severe pain or for other medical conditions, but there are risks involved with treatment. Common side effects may include nausea, constipation, drowsiness, sweating, itching, dry mouth, and rash. More serious side effects may include cognitive and motor impairment, like problems with thinking, concentrating, alertness, and movement (e.g. slowed reflexes), and driving and operating heavy machinery can be dangerous. It is important for you to talk to your physician if you have these side effects or questions. These controlled substances can produce physical dependence and be habit-forming if taken for an extended period of time, which means that the body has gotten used to them and may experience withdrawal symptoms if they are abruptly stopped. Withdrawal symptoms can include runny nose, sweating, goose bumps, diarrhea, abdominal cramping, rapid heartbeat, difficulty sleeping, and nervousness. CIGARETTE SMOKING: The facts are clear, cigarette smoking will shorten your life. Smoking can cause many illnesses along the way. As a healthcare provider, we recommend that you stop smoking. Assistance with quitting is available by contacting 8-188-NEDR-NOW. This is a free resource providing counseling, support, and referral. Or you may contact your personal physician. 4 WAYS TO GET AHEAD OF SEPSIS SEPSIS is a MEDICAL EMERGENCY. Time matters! Infections put you and your family at risk for a life-threatening condition called sepsis. Sepsis is the body???s extreme response to an infection. It is life-threatening, and without timely treatment, sepsis can rapidly lead to tissue damage, organ failure, and . Sepsis happens when an infection you already have???in your skin, lungs, urinary tract or somewhere else???triggers a chain reaction throughout your body. 1 PREVENT INFECTIONS Take good care of chronic conditions. Talk to your doctor about getting the recommended vaccines. 2 PRACTICE GOOD HYGIENE Wash your hands frequently. Keep cuts or open sores clean and covered until they are healed. 3 KNOW THE SYMPTOMS Confusion or disorientation Shortness of breath High heart rate Fever, shivering, or feeling very cold Extreme pain or discomfort Clammy or sweaty skin 4 ACT FAST Get medical care IMMEDIATELY if you suspect sepsis or if you have an infection that???s not getting better or is getting worse. To learn more about sepsis and how to prevent infections, visit www.cdc.gov/sepsis. STROKE is an EMERGENCY Every [employer] ACT F.A.S.T! FACE ?? Facial droop ?? Uneven smile ARM ?? Arm numbness ?? Arm weakness SPEECH ?? Slurred speech ?? Difficulty speaking or understanding TIME ?? Call 911 and get to the hospital immediately Have the ambulance go to the nearest stroke center. STROKE Risk Factors High blood pressure High cholesterol Heart Disease Diabetes Smoking Heavy alcohol use Physical inactivity and obesity Atrial Fibrillation (irregular heartbeat) Family history of stroke Reminder: Be sure to sign up for the [employer] patient portal, which gives you 13/03 access to your medical information ??? including these discharge instructions ??? using your computer, smartphone, or tablet. Just go to [employer] to get started. Questions? Call . [facility] would like to thank you for allowing us to assist you with your healthcare needs. I, DEWAYNE KURTZ, (or provider relations representative) have received the above patient education materials/instructions and have verbalized understanding: Patient Signature _ Date/Time Patient Yard Foreman Signature (if needed) Date/Time Clinician/Hospital Yard Foreman Signature (if needed) Date/Time Electronically signed by Frankie [facility] Conversion Environmental Science Professor Cerner at 12/05/2022 2:11 PM CDT documented in this encounter Plan of Treatment Not on file documented as of this encounter Visit Diagnoses Not on filedocumented in this encounter Care Teams Senior Compensation Analyst Relationship Specialty Start Date End Date Michael Luke DO PCP - General General Internal Medicine 08/02/23 documented as of this encounter
--- OUTSIDE RECORDS SUMMARY | 2025-03-17 11:50 | XMS_ITS | Clinical Summary ---
Author Organization [facility] Address [facility] [place] [address] Care Team Providers Care Filling Station Attendant Name Role Phone Michael Luke DO Primary Care Provider Source Comments This information has been disclosed to you from confidential records protectedfrom disclosure by state law. You shall make no further disclosure of thisinformation without the specific, written, and informed release of theindividual to whom it pertains, or as otherwise permitted by law. A generalauthorization for the release of medical or other information is not sufficientfor the purposes of therelease of HIV test results or diagnoses. [id number] Allergies No known active allergies Medications carvedilol (COREG) 25 MG tablet Take 25 mg by mouth 2 times a day. Active amLODIPine (NORVASC) 10 MG tablet Take 10 mg by mouth daily. Active topiramate XR (TROKENDI XR) 50 mg Cp24 Take 100 mg by mouth daily. Active OXcarbazepine (TRILEPTAL) 300 MG tablet Take 450 mg by mouth 2 times a day. Active meloxicam (MOBIC) 15 MG tablet Take 15 mg by mouth daily as needed for Pain. Active spironolactone (ALDACTONE) 25 MG tabletIndicatio ns:hypertension Take 2 tablets (50 mg total) by mouth daily. Indications: hypertension 30 tablet 9 Active Active Problems Problem Noted Date Diagnosed Date Acute respiratory failure with hypoxia 9 CAP (community acquired pneumonia) 02/16/2019 SIRS (systemic inflammatory response syndrome) 0 02/15/2019 Odynophagia 02/15/2019 Hypertensive urgency 02/15/2019 Community acquired pneumonia 02/15/2019 Overview (02/19/2019): Added automatically from request for surgery [id number] Elevated troponin Family History Medical History Relation Comments Hypertension Father Relation Status Comments Father Social History Tobacco Use Types Packs/Day Years Used Date Smoking Tobacco: Never Smokeless Tobacco: Never Alcohol Use Standard Drinks/Week Comments Yes 0 (1 standard drink = 0.6 oz pur e alcohol) rarely Sex and Gender Information Value Date Recorded Sex Assigned at Not on file Legal Sex Male 2:20 AM EDT Gender Identity Not on file Sexual Orientation Not on file Last Filed Vital Signs Vital Sign Reading Time Taken Comments Blood Pressure 140/89 02/23/2019 12:18 PM EDT Pulse 92 02/23/2019 12:18 PM EDT Temperature 37.3 C (99.1 F) 02/23/2019 12:18 PM EDT Respiratory Rate 16 02/23/2019 12:18 PM EDT Oxygen Saturation 98% 02/23/2019 12:18 PM EDT Inhaled Oxygen Concentration 98% 02/23/2019 1 2:18 PM EDT Weight 107 kg (235 lb 14.3 oz) 02/20/2019 11:35 AM EDT Height 182.9 cm (6') 02/20/2019 11:35 AM EDT Body Mass Index 31.99 02/20/2019 11:35 AM EDT Plan of Treatment Not on file Insurance [employer] ACCESS Advance Directives For more information, please contact: [phone] * Full Code (Latest Code Status on File) Date Activated Date Inactivated Comments 02/15/2019 7:32 AM 02/23/2019 6:53 PM Care Teams Filling Station Attendant Relationship Specialty Start Date End Date Michael Luke DO [address] [place] [address] PCP - General 02/15/19
--- OUTSIDE RECORDS SUMMARY | 2025-03-17 11:50 | XMS_ITS | Encounter Summary ---
Author Organization [employer] ([place], [place], [place], [place]) Address [address] [place] [address] Care Team Providers Care Silo Erector Name Role Phone Fina Lukeew Tania MARK Primary Care Provider Encounter Details Date Type Department Care Team (Late st Contact Info) Description 05/15/2020 Transcribed Document [facility] [place] [facility] [place] Medicine [address] [place] [address] ProviderAugustus MD [address] [place], [place] [id number] Social History Tobacco Use Types Packs/Day Years Used Date Smoking Tobacco: Never Assessed Sex and Gender Information Value Date Recorded Sex Assigned at Not on file Legal Sex Male 5:55 PM CDT Gender Identity Not on file Sexual Orientation Not on file documented as of this encounter Miscellaneous Notes * Cerner Conversion Note - Augustus ProviderMD - 05/15/2020 8:03 AM CDT Meds to Bed Enrollment Entered On: 05/15/2020 9:41 EDT Performed On: 05/15/2020 8:03 EDT by David Norman AFTER SCHOOL COUNSELOR LEAD Meds to Bed Enrollment Patient Enrollment Decision: : Yes/enroll in meds to bed program David Norman PHARMACY TECH LEAD - 05/15/2020 9:41 EDT Electronically signed by Lesley David Conversion Dewatering Filtering Supervisor Cerner at 12/05/2022 2:10 PM CDT documented in this encounter Plan of Treatment Not on file documented as of this encounter Visit Diagnoses Not on filedocumented in this encounter Care Teams Silo Erector Relationship Specialty Start Date End Date Michael Luke DO PCP - General General Internal Medicine 08/02/23 documented as of this encounter
--- OUTSIDE RECORDS SUMMARY | 2025-03-17 11:50 | XMS_ITS | Encounter Summary ---
Author Organization [employer] ([place], [place], [place], [place]) Address [address] [place] [address] Care Team Providers Care Flake Or Shred Roll Operator Name Role Phone SavitapaulyfrandyMichael Tania MARK Primary Care Provider Encounter Details Date Type Department Care Team (Late st Contact Info) Description 05/15/2020 Transcribed Document [facility] [place] Family Medicine [address] [place] [address] ProviderAugustus MD [address], [place] [id number] Social History Tobacco Use Types Packs/Day Years Used Date Smoking Tobacco: Never Assessed Sex and Gender Information Value Date Recorded Sex Assigned at Not on file Legal Sex Male 5:55 PM CDT Gender Identity Not on file Sexual Orientation Not on file documented as of this encounter Miscellaneous Notes * Cerner Conversion Note - Augustus ProviderMD - 05/15/2020 10:29 AM CDT Education-(VTE) / (DVT) Entered On: 05/16/2020 5:53 EDT Performed On: 05/15/2020 10:29 EDT by Rigoberto Jasmine Rn-Traveler Teaching/Learning Assessment Barriers To Learning : None evident Learning Style Preferences Patient : Verbal explanation Rigoberto Jasmine Rn-Traveler - 05/16/2020 5:53 EDT documented in this encounter Plan of Treatment Not on file documented as of this encounter Visit Diagnoses Not on filedocumented in this encounter Care Teams Flake Or Shred Roll Operator Relationship Specialty Start Date End Date Michael Luke DO PCP - General General Internal Medicine 08/02/23 documented as of this encounter
--- OUTSIDE RECORDS SUMMARY | 2025-03-17 11:50 | XMS_ITS | Encounter Summary ---
Author Organization [employer] ([place], [place], [place], [place]) Address [address] [place] [address] Care Team Providers Care Coal Getter Name Role Phone Michael Luke Primary Care Provider Encounter Details Date Type Department Care Team (Late st Contact Info) Description 05/15/2020 Transcribed Document [facility] Family Medicine [facility] [place] [address] ProviderAugustus MD [address] [place] [address] Social History Tobacco Use Types Packs/Day Years Used Date Smoking Tobacco: Never Assessed Sex and Gender Information Value Date Recorded Sex Assigned at Not on file Legal Sex Male 5:55 PM CDT Gender Identity Not on file Sexual Orientation Not on file documented as of this encounter Miscellaneous Notes * Cerner Conversion Note - Augustus Briseno MD - 05/15/2020 12:05 PM CDT EPILEPSY ADMISSION NOTE DATE OF ADMISSION: 05/15/2020 ADMITTING PHYSICIAN: KELSEY AVALOS MD REASON FOR ADMISSION: Intractable epilepsy. HISTORY: This is a 39-year-old man who has had seizures for a few years. He has had episodes characterized by loss of consciousness with witnessed generalized tonic-clonic activity. He has had milder episodes where he is noted to stare and becomes unresponsive. His seizures were well-controlled on oxcarbazepine. However, he recently had a seizure after a surgical procedure for kidney stone. His has also shared concern about possible seizures in his sleep as she describes spells where he has jerking and is unresponsive. ALLERGIES: He has no known drug allergies. MEDICATIONS AT HOME: 1. Amlodipine 10 mg daily. 2. Carvedilol 25 mg twice daily. 3. Fenofibrate 135 mg daily. 4. Oxcarbazepine 450 mg twice daily. 5. Spironolactone 25 mg daily. 6. Sumatriptan 50 mg p.r.n. PAST MEDICAL HISTORY: 1. Hypertension. 2. Intractable migraine. PAST SURGICAL HISTORY: Shoulder surgery. FAMILY HISTORY: 1. Diabetes. 2. Hypertension. SOCIAL HISTORY: He does not smoke or consume alcohol. REVIEW OF SYSTEMS: He denies symptoms referable to the cardiac, pulmonary, gastrointestinal or skeletal systems. He has had recent kidney stones. He reports intermittent headaches. He reports symptoms of anxiety but denies depression or suicidal ideation. PHYSICAL EXAMINATION: VITAL SIGNS: Blood pressure 150/83, heart rate 86 per minute and regular, respiratory rate 16 per minute. HEENT: Pupils equal and reactive. NECK: Supple. Normal carotid pulses. LUNGS: Clear. HEART: Regular rate and rhythm. Normal peripheral pulses. NEUROLOGIC EXAMINATION: He is alert and well oriented. Normal language functions. Normal cranial nerves. Full range of motion of extraocular muscles with no nystagmus. Symmetric facial contractions. Normal tongue movements. His motor exam was normal with normal strength in the upper and lower extremities. COORDINATION: Normal bltaow-gr-[id number]. Normal rapid alternating movements. IMPRESSION: Dewayne has a well-documented history of partial epilepsy. He has had mild seizures and more intense generalized tonic-clonic seizures. He recently had a seizure after coming off anesthesia for a surgical procedure. His has also reported nocturnal events where he has jerking activity associated with unresponsiveness. He may therefore have persistent unrecognized seizures. PLAN: 1. Admit to the epilepsy monitoring unit. 2. Start video EEG monitoring. 3. Seizure precautions. 4. Continue current dose of oxcarbazepine. 5. Continue other home medications. /[id number] MD MADDY Pérez/BRODY / MADDY / ALBERT documented in this encounter Plan of Treatment Not on file documented as of this encounter Visit Diagnoses Not on filedocumented in this encounter Care Teams Coal Getter Relationship Specialty Start Date End Date Michael Luke DO PCP - General General Internal Medicine 08/02/23 documented as of this encounter
--- OUTSIDE RECORDS SUMMARY | 2025-03-17 11:50 | XMS_ITS | Clinical Summary ---
Author Organization [facility] Address [address] [place] [address] Care Team Providers Care Bevel Face Stoner And Polisher Name Role Phone MarlyMichael Tania MARK Primary Care Provider Allergies Active Allergy Reactions Criticality Noted Date Comments Basle Other - please docum ent in the comment field Low 10/07/2024 Medications warfarin (Coumadin) 7.5 MG tablet 1 tablet. Active valsartan (Diovan) 320 MG tablet Take 1 tablet by mouth daily. Active spironolactone (Aldactone) 50 MG tablet 1 tablet. 09/20/2024 Active Ozempic, 1 MG/DOSE, 4 MG/3ML solution pen-injector 12/03/2024 Active metFORMIN (Glucophage) 500 MG tablet Take 1 tablet by mouth in the morning and 1 tablet in the evening. Take with meals. Active hydrALAZINE (Apresoline) 50 MG tablet Active finasteride (Proscar) 5 MG tablet 1 tablet. Active dilTIAZem CD (Cardizem CD) 240 MG 24 hr capsule 1 capsule. 09/20/2024 Active chlorthalidone (Hygroton) 25 MG tablet Take 1 tablet by mouth daily. Active carvedilol (Coreg) 25 MG tablet Take 1 tablet by mouth in the morning and 1 tablet before bedtime. 06/02/2017 Active atorvastatin (Lipitor) 80 MG tablet 1 tablet. Active Qulipta 60 MG tablet 09/20/2024 Active allopurinol (Zyloprim) 100 MG tablet Take 1 tablet by mouth daily. Active amLODIPine (Norvasc) 10 MG tablet TK 1 T PO D 06/02/2017 Active Active Problems Problem Noted Date Diagnosed Date BHAKTI (acute kidney injury) 12/04/2024 Type 2 diabetes mellitus wit h chronic kidney disease, without long-term current use of insulin 12/04/2024 Resistant hypertension 12/04/2024 Other hyperlipidemia 12/04/2024 Chronic kidney disease-mineral and bone disorder (CKD-MBD) 12/04/2024 Chronic a-fib 12/04/2024 Family History Medical History Relation Name Comments Diabetes Mother Cataracts Other 1 Glaucoma Other 2 Other cancer Other 3 Relation Name Status Comments Mother Other 1 Other 2 Other 3 Social History Tobacco Use Types Packs/Day Years Used Date Smoking Tobacco: Never Tobacco Cessation:Counseling Given: Not Answered Alcohol Use Standard Drinks/Week Comments Never 0 (1 standard drink = 0.6 oz pur e alcohol) Sex and Gender Information Value Date Recorded Sex Assigned at Not on file Legal Sex Male 7:31 PM EDT Gender Identity Not on file Sexual Orientation Not on file Last Filed Vital Signs Vital Sign Reading Time Taken Comments Blood Pressure 136/89 12/04/2024 1:24 PM EDT Pulse 94 12/04/2024 1:10 PM EDT Temperature 36.5 C (97.7 F) 12/04/2024 1:10 PM EDT Respiratory Rate 17 10/07/2024 10:00 PM EST Oxygen Saturation 98% 12/04/2024 1:10 PM EDT Inhaled Oxygen Concentration - - Weight 112 kg (247 lb 12.8 oz) 12/04/2024 1:10 P M EDT Height 182.9 cm (6') 12/04/2024 1:10 PM EDT Body Mass Index 33.61 12/04/2024 1:10 PM EDT Plan of Treatment Upcoming Encounters Date Type Department Care Team (Late st Contact Info) Description 06/27/2025 9:40 AM EST Office Visit [facility] [address] [place] [id number] Luís Bach MD [address] [place] [phone] Health Maintenance Due Date Last Done Comments [facility]-Depression Screening 1980 [facility]-Diabetes: Hemoglobin A1C 1980 [facility]-Medicare Annual Wellness (AWV) 1980 [facility]-/Child/Adol SDOH Screenings 1980 Diabetes: Dental Exam 1989 [facility]-Varicella Vaccines (1 of 2 - 13+ 2-dose series) 1992 HPV Vaccines (1 - Male 3-dos e series) 1994 [facility]- SDOH Screenings 1997 [facility]-Adult SDOH Screenings 1997 [facility]-DTaP,Tdap,and Td Vaccine s (1 - Tdap) 1998 [facility]-Hepatitis B Vaccines (1 of 3 - 19+ 3-dose series) 1998 [facility]-Pneumococcal Vaccine: Pediatrics (0 to 5 Years) and At-Risk Patients (6 to 49 Years) (1 of 2 - PCV) 1998 [id number] Vaccine (3 - season) 2024 03/28/2021, 02/27/2021 CT Colonography 2024 Colonoscopy 2024 FIT-DNA 2024 FIT 2024 FOBT 2024 Sigmoidoscopy 2024 [facility]-Colorectal Cancer Screening 2024 [facility]-Influenza Vaccine (#1) 2025 [facility]-Zoster Vaccines (1 of 2) 2029 [facility]-HIV Screening Completed 10/07/2024, 02/22/2019, 02/19/2019 [facility]-Hepatitis C Screening Completed 10/07/2024 [facility]-Obesity Intervention Completed 12/04/2024 [facility]-HIB Vaccines Aged Out No longer e ligible based on patient's age to complete this topic [facility]-Hepatitis A Vaccines Aged Out No longer eligible based on patient's age to complete this topic [facility]-IPV Vaccines Aged Out No longer e ligible based on patient's age to complete this topic [facility]-Rotavirus Vaccines Aged Out No lo nger eligible based on patient's age to complete this topic Procedures Procedure Name Priority Date/Time Associated Diagnosis Comments HEPATITIS C ANTIBODY - ED W/REFLEX TO HCV QUANT PCR STAT 10/07/2024 6:24 PM EST ED HIV 1/2 ANTIBODY/ANTIGEN SCREEN WITH REFLEX TO HIV I/II DIFFERENTIATION STAT 10/07/2024 6:24 PM EST from Last 3 Months or Most Recently Relevant to Health Maintenance Results * ED HIV 1/2 Antibody/Antigen Screen w/Reflex to HIV 1/2 Differentiation (10/07/2024 6:24 PM EST) Pathologist [facility] HIV 1 & 2 Antibody/Antigen Screen Non Reactive Non Reactive 10/07/2024 7:28 PM EST [facility] Comment:Screening for HIV 1 & 2 antibodies, and P24 antigen is NONREACTIVE. No confirmatory testing is required. Blood Venous blood specimen / Unknown Venipuncture / Unknown 10/07/2024 6:24 PM EST 10/07/2024 6:46 PM EST us Harvey Secret Recipe Jagdeep DO LAB BLOOD ORDERABLES Final Res ult Performing Organization Address [facility]/ZIP Co de Phone Number [facility] [address] [place] [address] * Hepatitis C Antibody - ED (10/07/2024 6:24 PM EST) Pathologist [facility] Hepatitis C Antibody Negative Negative 10/07/2024 7:29 PM EST [facility] Blood Venous blood specimen / Unknown Venipuncture / Unknown 10/07/2024 6:24 PM EST 10/07/2024 6:46 PM EST Harvey Secret Recipe Jagdeep DO LAB BLOOD ORDERABLES Final Res ult [facility] [address] [place] [address] from Last 3 Months or Most Recently Relevant to Health Maintenance Insurance [facility] MEDICARE Care Teams Bevel Face Stoner And Polisher Relationship Specialty Start Date End Date Michael Luke DO [facility] [address] [place] [id number] PCP - General 01/01/21
--- OUTSIDE RECORDS SUMMARY | 2025-03-17 11:50 | XMS_ITS | Encounter Summary ---
Author Organization [employer] ([place], [place], [place], [place]) Address [address] [place] [address] Care Team Providers Care Extruder Operator Helper Name Role Phone LakhwinderfrandyMichael Tania MARK Primary Care Provider Encounter Details Date Type Department Care Team (Late st Contact Info) Description 05/16/2020 Transcribed Document [facility] [place] Family [facility] [place] [address] ProviderAugustus MD [address] [place] [address] Social History Tobacco Use Types Packs/Day Years Used Date Smoking Tobacco: Never Assessed Sex and Gender Information Value Date Recorded Sex Assigned at Not on file Legal Sex Male 5:55 PM CDT Gender Identity Not on file Sexual Orientation Not on file documented as of this encounter Miscellaneous Notes * Cerner Conversion Note - Augustus Briseno MD - 05/16/2020 10:26 AM CDT Patient: DEWAYNE KURTZ Age: 39 years Sex: Male : 1980 Associated Diagnoses: None Author: KELSEY AVALOS MD-CYNTHIA Subjective No clinical event since admission ROS: No complaint Health Status Allergies: Allergic Reactions (Selected) No Known Allergies, No qualifying data available Current medications: (Selected) Inpatient Medications Ordered Core mg, Oral, BID Norvasc: 10 mg, Oral, Daily OXcarbazepine: 450 mg, Oral, BID Phenergan: 25 mg, Oral, Q6H, PRN: Nausea/Vomiting SUMAtriptan: 50 mg, Oral, 1-Time, PRN: Migraine Headache TriCor 145 mg oral tablet: 145 mg, 1 Tab, Oral, Daily ibuprofen: 600 mg, Oral, Q6H, PRN: Headache/Pain spironolactone: 25 mg, Oral, Daily Documented Medications Documented Coreg 25 mg oral tablet: 1 Tab, Oral, BID, 180 Tab, 0 Refill(s) Norvasc 10 mg oral tablet: 1 Tab, Oral, Daily, 0 Refill(s) OXcarbazepine 300 mg oral tablet: 1.5 Tab, Oral, BID, 0 Refill(s) SUMAtriptan 50 mg oral tablet: 1 Tab, Oral, 1-Time, may repeat dose after 2 hours up to a maximum of 200 mg in 24 hours, PRN: as needed for migraine headache, 18 Tab, 0 Refill(s) fenofibrate: 135 mg, Oral, Daily, 0 Refill(s) spironolactone 25 mg oral tablet: 1 Tab, Oral, Daily, 0 Refill(s), Home Medications (6) Active Coreg 25 mg oral tablet 25 mg = 1 Tab, Oral, BID fenofibrate 135 mg, Oral, Daily Norvasc 10 mg oral tablet 10 mg = 1 Tab, Oral, Daily OXcarbazepine 300 mg oral tablet 450 mg = 1.5 Tab, Oral, BID spironolactone 25 mg oral tablet 25 mg = 1 Tab, Oral, Daily SUMAtriptan 50 mg oral tablet 50 mg = 1 Tab, PRN, Oral, 1-Time , Medications (8) Active Scheduled: (5) amLODIPine 10 mg tab 10 mg 1 Tab, Oral, Daily carvedilol 25 mg tab 25 mg 1 Tab, Oral, BID fenofibrate 145 mg tab 145 mg 1 Tab, Oral, Daily OXcarbazepine 150 mg tab 450 mg 3 Tab, Oral, BID spironolactone 25 mg tab 25 mg 1 Tab, Oral, Daily Continuous: (0) PRN: (3) ibuprofen 600 mg tab 600 mg 1 Tab, Oral, Q6H promethazine 25 mg tab 25 mg 1 Tab, Oral, Q6H SUMAtriptan 25 mg tab 50 mg 2 Tab, Oral, 1-Time Problem list: Medical History of obstructive sleep apnea / IMO [id number] / Confirmed, Active Problems (2) History of obstructive sleep apnea Hypertension Objective VS/Measurements Vital Signs/Vital Measures 05/16/2020 5:50 EDT Systolic Blood Pressure 139 mmHg Diastolic Blood Pressure 89 mmHg Mean Arterial Pressure (MAP)-BMDI 103 Temperature Source Oral Temperature Mode Fahrenheit Temperature, Fahrenheit 98.8 Deg F Clinical Temperature, C 37.1 Deg C Heart Rate Monitored 79 bpm Respiratory Rate 16 Breaths/Min Oxygen Saturation 95 % Oxygen Therapy Mode Room air 05/15/2020 22:24 EDT Systolic Blood Pressure 155 mmHg HI Diastolic Blood Pressure 107 mmHg HI Mean Arterial Pressure (MAP)-BMDI 124 Temperature Source Oral Temperature Mode Fahrenheit Temperature, Fahrenheit 97.9 Deg F Clinical Temperature, C 36.6 Deg C Heart Rate Monitored 84 bpm Respiratory Rate 16 Breaths/Min Oxygen Saturation 97 % Oxygen Therapy Mode Room air 05/15/2020 17:05 EDT Systolic Blood Pressure 149 mmHg HI Diastolic Blood Pressure 99 mmHg HI Mean Arterial Pressure (MAP)-BMDI 116 Heart Rate Monitored 87 bpm 05/15/2020 17:03 EDT Systolic Blood Pressure 178 mmHg HI Diastolic Blood Pressure 115 mmHg HI Mean Arterial Pressure (MAP)-BMDI 143 Temperature Source Temporal artery scanning Temperature Mode Fahrenheit Temperature, Fahrenheit 98.0 Deg F Clinical Temperature, C 36.7 Deg C Heart Rate Monitored 88 bpm Respiratory Rate 16 Breaths/Min 05/15/2020 11:35 EDT Systolic Blood Pressure 150 mmHg HI Diastolic Blood Pressure 83 mmHg Mean Arterial Pressure (MAP)-BMDI 103 Temperature Source Oral Temperature Mode Fahrenheit Heart Rate Monitored 86 bpm 05/15/2020 11:00 EDT Temperature, Fahrenheit 98.1 Deg F Respiratory Rate 16 Breaths/Min , Measurements from flowsheet : Measurements 05/15/2020 16:39 EDT Height Source Stated Height Entry Format Lee Height/Length, AMHARIC (ft) 6 ft Height/Length AMHARIC 0 Inch CLINICALHEIGHT 182.88 cm [place] Body Weight 77 kg Weight Source Bed scale Weight Entry Format Lee Weight Ukrainian lb 250 lb CLINICALWEIGHT 113.64 kg Body Surface Area (BSA) 2.34 m2 Body Mass Index 34 kg/m2 HI , Vitals Signs (last 24 hrs) Last Charted Minimum Maximum Temp 98.8 (MAY 16 05:50) 97.9 (MAY 15 22:24) 98.1 (MAY 15 11:00) Mon HR 79 (MAY 16 05:50) 79 (MAY 16 05:50) 88 (MAY 15 17:03) Resp Rate 16 (MAY 16 05:50) 16 (MAY 15 11:00) 16 (MAY 15 11:00) SBP 139 (MAY 16 05:50) 139 (MAY 16 05:50) H 178 (MAY 15 17:03) DBP 89 (MAY 16 05:50) 83 (MAY 15 11:35) H 115 (MAY 15 17:03) MAP 103 (MAY 16 05:50) 103 (MAY 15 11:35) 143 (MAY 15 17:03) SpO2 95 (MAY 16 05:50) 95 (MAY 16 05:50) 97 (MAY 15 22:24) General: Alert and oriented. Eye: Pupils are equal, round and reactive to light. Neurologic: Normal motor function, No focal deficits, Cranial Nerves II-XII are grossly intact. Psychiatric: Appropriate mood & affect. Results Review Continuous EEG: Right temporal slow waves Impression and Plan Discussed findings with the patient 1. Continue video-EEG monitoring 2. Encouraged increase in level of activity Electronically signed by Frankie, [facility] Conversion Barrel Marker Cerner at 12/05/2022 2:32 PM CDT documented in this encounter Plan of Treatment Not on file documented as of this encounter Visit Diagnoses Not on filedocumented in this encounter Care Teams Extruder Operator Helper Relationship Specialty Start Date End Date Michael Luke DO PCP - General General Internal Medicine 08/02/23 documented as of this encounter
--- OUTSIDE RECORDS SUMMARY | 2025-03-17 11:50 | XMS_ITS | Data Portability ---
Author Organization ARAVIND SANDRA [facility] Address [address] [facility] [address] [place] [address] Assessment Encounter Date Assessment Date Assessment LastModified by Organization Details LastModified Time 10/18/2023 10/18/2023 Overall think this was likely related to a viral infection. Patient's symptoms are improving therefore recommend symptomatic treatment at this time including adequate hydration, electrolyte enhanced water, Tylenol/ibupro fen as needed. RTO if symptoms worsen or do not improve [email or web address] Not available 10/18/2023 13:15:53 Plan of Treatment Reminders Order Date Submit Date Provider Last Modified By Organization Details Last Modified Time Details Appointments None recorded. Lab None recorded. Referral None recorded. Procedures colonoscopy screening (PROC) 2022 023 [email or web address] 4 Davidson Guillen MD, [address] [facility], [place], [address], 3 14:52:51 Surgeries None recorded. Imaging XR, shoulder, 2 or more view 2018 019 [email or web address] Not available 9 08:29:08 XR, shoulder, 2 or more view 2018 019 [email or web address] Not available 9 08:29:08 Medication Orders Zithromax Z-Horacio 250 mg tablet 2022 023 [facility] #[id number], [address], [place], [address], 4 10:04:15 Patient TargetsNo targets recorded. Patient Instructions Encounter Date Encounter Id Patient Instructions Last Modified By Organization Details Last Modified Time 03/15/2019 [id number] shoulder stretches: exercises [email or web address] Not available 03/15/2019 11:38:58 Reason for Referral None Reported. Results Created Date Observation Date Name Description Value Unit Range Abnormal Flag Note LastModifiedBy Organization Detail LastModifiedTime 03/15/20 19 03/15/2019 XR, shoul albino, 2 or more view [facility] [address] [place] [place] [address] Diamanterhonda cervantes Name: DEWAYNE cervantes : [birth year] 79 [...] long MD on 019 11:44 AM ddome [facility] [address] [place], [address], 03/18/2019 14:56:08 03/15/2003/15/2019 XR, shoul albino, 2 or more view [facility] [address] [place] [address] Mckenna cervantes Name: DEWAYNE cervantes : [birth year] [...] Interp reted By: Irineo long MD Electr on ly Signed By: Irineo long MD on 019 11:44 AM ddome [facility] [place] [address] , [place], [address], 03/18/2019 14:56:08 Result Notes Documentation Provider Name and Address Organization Details Recorded Time Xr, Shoulder, 2 Or More View : [facility] [place] [address] [place] [address] Patient Name: DEWAYNE KURTZ Patient : 1980 Patient Ordering Provider: MARY ROBLES EXAM DATE: 03/15/2019 EXAM: XR RT SHOULDER COMPLETE RADIOGRAPHIC VIEWS: 3 COMPARISON: 06/14/2017 HISTORY: Right shoulder pain. FINDINGS: The bones of the shoulder are normal in alignment. There is no evidence of fracture. There is mild degenerative changes at the acromioclavicular joint and along the glenohumeral joint. The acromioclavicular and coracoclavicular spacing is normal. An ossific body projects in the axillary pouch. The visualized right ribs and right lung appears normal. IMPRESSION: 1. There are mild degenerative changes in the right shoulder. Interpreted By: Joey Smith MD ROBLES MD [address] [place] [address], [phone], [facility] 03/18/2019 14:56:08 Xr, Shoulder, 2 Or More View : [facility] [place] [address] [place] [address] Patient Name: DEWAYNE KURTZ Patient : 1980 Patient Ordering Provider: MARY ROBLES EXAM DATE: 03/15/2019 EXAM: XR LT SHOULDER COMPLETE RADIOGRAPHIC VIEWS: 3 COMPARISON: 06/14/2017 HISTORY: Follow-up of prior surgery. FINDINGS: Again seen is a left shoulder federico-arthroplasty. There is no evidence of loosening or complication. No fracture is identified. There are mild degenerative changes at the acromioclavicular joint. IMPRESSION: 1. There is a left shoulder federico-arthroplasty in place without evidence of complication. Interpreted By: Joey Smith MD ROBLES MD [facility] [place], [address], [facility] 03/18/2019 14:56:08 Problems Name Problem SNOMED Code Status Onset Date Resolution Date Notes Provider Name and Address Organization Details Recorded Time Abdominal pain 58508171 Active 024 AGATA TORRES DO [address] [place], [address], [facility] 4 13:11:05 Diarrhea 06961124 Active 024 AGATA TORRES DO [address] [place], [address], [facility] 4 13:11:15 Vomiting 934124484 Active 024 AGATA TORRES DO [address] [place], [address], [facility] 4 13:11:27 Problem Notes None recorded. Procedures Surgical History Date Name Laterality Status Provider Name and Address Organization Details Recorded Time 7 Op Note completed MD Fatimah [place], [address], [facility] 12/22/2016 11:18:59 Orthopedic Surgery completed Beni Sadler [facility] 03/15/2019 10:50:32 Imaging Results None recorded. Procedure Notes None [...] completed Not Available Not Available Not Available Fertile 5 mg-325 mg tablet 1 PO Q [...] 1 tablet every day by oral route. 07/10 completed Not Available Not Available Not Available Vitals Date Recorded Body height Body mass index (BMI) Body weight Systolic And Diastolic Provider Name and Address Organization Details Last Updated DateTime 10/10/2017 182.88 cm 32.5 kg/m2 415678.17 g 156/99 mm[Hg] Ana Vitaliy [facility] 10/10/2017 09:18:40 Date Recorded Body height Body mass index (BMI) Body weight Body temperature Heart rate Oxygen saturation Oxygen saturation in Arterial blood by Pulse oximetry Systolic And Diastolic Provider Name and Address Organization Details Last Updated DateTime 4 200.66 cm 29.3 kg/m2 411237. 02 g 98 [degF] 77 /min 97 % 97 % 134/80 mm[Hg] Tila Correia [facility] 4 10:01:09 Date Recorded Body height Body mass index (BMI) Body weight Provider Name and Address Organization Details Last Updated DateTime 03/15/2019 182.88 cm 32.5 kg/m2 998484.17 g Beni Sadler [facility] 03/15/2019 10:47:49 Date Recorded Body height Body mass index (BMI) Body weight Body temperature Heart rate Respiratory rate Oxygen saturation Oxygen saturation in Arterial blood by Pulse oximetry Systolic And Diastolic Provider Name and Address Organization Details Last Updated DateTime 3 200.66 cm 27.4 kg/m2 119834. 95 g 97.8 [degF] 84 /min 16 /min 100 % 100 % 128/78 mm[Hg] Regine [facility] 3 11:45:23 Date Recorded Body height Body mass index (BMI) Body weight Body temperature Heart rate Respiratory rate Oxygen saturation Oxygen saturation in Arterial blood by Pulse oximetry Systolic And Diastolic Provider Name and Address Organization Details Last Updated DateTime 3 200.66 cm 27.5 kg/m2 935034. 54 g 97.6 [degF] 82 /min 14 /min 97 % 97 % 132/80 mm[Hg] [facility] 3 14:56:30 Social History Question Answer Notes LastModified by [employer] Details LastModified Time Tobacco Smoking Status Never Smoker JUVENTINO SALAZAR MD [address] [place] [address], [address], [facility] 12/06/2016 16:11:47 What Was The Date Of Your Most Recent Tobacco Screening? 08/16/2023 [email or web address] Information not available 08/16/2023 How Many Children Do You Have? 2 Information not available 10/18/2023 What Is Your Relationship Status? Information not available 10/18/2023 Has Tobacco Cessation Counseling Been Provided? No Information not available 10/18/2023 Sex: Unknown Functional Status Question Answer Note LastModified by Organizat ion Details LastModified Time Do you use any illicit or recreational drugs? No Information not available 10/18/2023 Do you or have you ever used any other forms of tobacco or nicotine? No Information not available 10/18/2023 Mental Status None recorded. Family History Relationship Description Onset Age of this Age Resolved Age Notes LastModified by Organization Details LastModified Time Father No current problems or disability [email or web address] Not available 12/06 16:11:41 Mother No current problems or disability [email or web address] Not available 12/06 16:11:41 Medical History Condition Response Allergies/Hayfever N Gout N Other N Anxiety/Depression N Thyroid Disease N Heart Conditions N Kidney Stones N Hernia N Migraines N COPD N Glaucoma N Pneumonia Y Skin Problems N Immune System Disorder N Anesthesia Complications N Heart Attack (AR) N Mental Illness N Neurological Problems N [...] dose or 50 mcg/0.25mL dose 02/27/2021 completed Regine Jo [facility] 05/08/2023 12:09:10 COVID-19, mRNA, LNP-S, PF, 100 mcg/0.5mL dose or 50 mcg/0.25mL dose 03/28/2021 completed Regine Jo [facility] 05/08/2023 12:09:10 Past Encounters Encounter ID Performer Location Encounter Start Date Encounter Closed Date Diagnosis/Indication Diagnosis SNOMED-CT Code Diagnosis ICD10 Code Diagnosis Note [id number] JUVENTINO SALAZAR MD [facility] [address] [address] 12/06/2016 15:52:03 12/13/2016 09:10:15 Instability of left shoulder joint 5293674019 733456 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 He is a candidate for allograft transfer versus humeral head replacemen t. Given his seizure disorder and the potential for high-impac t where I'm recommendi ng humeral head replacemen t. Because of his young age and preserve bone stock I'm recommendi ng a stem less component. He will need [...] rehabilita tion were noted. Consent was confirmed. [id number] JUVENTINO SALAZAR MD SURGERY SCHEDULE [address] [place] [address] 12/19/2016 09:24:29 12/19/2016 09:28:56 Postoperative care 308656666 Z48.89 [id number] GWEN MOJICA PA-C [facility] [address] [place] [address] 12/23/2016 10:02:23 12/23/2016 13:51:07 Postoperative care 158918721 Z48.89 [id number] JUVENTINO SALAZAR MD [facility] [address] [place] [address] 01/17/2017 11:15:51 01/17/2017 17:03:58 Postoperative care 717420120 Z48.89 PT protocol [id number] JUVENTINO SALAZAR MD [facility] [address] [place] [address] 02/15/2017 11:06:25 02/16/2017 08:48:39 Postoperative care 478660634 Z48.89 I informed Dewayne that his only [...] in 5 weeks with x-rays on arrival. 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 I'm recommendi ng conservati ve treatment until we get better control over his seizure disorder. He also still does not have excellent function of the left shoulder yet. I recommende d short-term sling immobiliza tion with physical therapy. Total shou lder replacement 95215339 Z96.619 x-rays appear well aligned. His belly press is getting stronger. Perhaps now we can focus more on his left shoulder rehabilita tion as well. Return in 4 weeks [id number] JUVENTINO SALAZAR MD [facility] [address] [address] 05/03/2017 10:44:25 05/04/2017 16:20:15 Postoperative care 820071272 Z48.89 This patient will require increased physical [...] Sz Instabilit y of right shoulder joint 7896368686 873353 M25.311 seizure related anterior dislocatio n with Bankart tear and large Hill-Sachs . I'm recommendi ng conservati ve treatment until we get better control over his seizure disorder. He also still does not have excellent function of the left shoulder yet. I recommende d short-term sling immobiliza tion with physical therapy. [id number] JUVENTINO SALAZAR MD [facility] [address] [place] [address] 06/14/2017 08:51:19 06/14/2017 13:57:44 Instability of right shoulder joint 1527012348 198391 M25.311 seizure related anterior dislocatio n with Bankart tear and large Hill-Sachs . I'm recommendi ng conservati ve treatment until we get better control over his seizure disorder. He also still does not have excellent function of the left shoulder yet. Total shou lder replacement 66960888 Z96.619 hemiarthro plasty, stem wasSignifi cant stiffness, perhaps from capsulorrh aphy or from postoperat roma care.Allow ed activities to tolerance and recommend continued home exercise program. I do not believe he can perform any work above shoulder level and has lifting restrictio ns due to his weakness. [id number] JUVENTINO SALAZAR MD [facility] [address] [place] [address] 10/10/2017 08:49:23 10/10/2017 13:35:31 Detachment of the glenoid labrum and/or capsule of the shoulder joint 038654800 S43.491D RIGHT indication for scope bankart would be persistent pain with failure conservati ve care Offered Cont PT and HEP discussed supportive measures 20 min [id number] MARY ROBLES MD [facility] [address] [address] 03/15/2019 10:42:07 03/15/2019 11:48:43 Pain of left shoulder joint 8951443253 6472211 M25.512 Mr Kurtz continues to have some pain in the left shoulder but has not had recurrent shoulder instabilit y. I recommend continued gentle stretching and strengthen ing of the shoulders. Pain of ri ght shoulder joint 0903876814 2793651 M25.511 Mr Kurtz has some mild rotator cuff tendinopat hy of the right shoulder. I recommend gentle strengthen ing with a home exercise program. [id number] CAR JESUS LL, DO [facility] [place] [id number] [facility] [place] [address] 05/08/2023 11:25:39 05/08/2023 13:47:25 Screening for malignant neoplasm of colon 249220512 Z12.11 Poor short -term memory 568492058 R41.3 I have been concerned about this [...] Recommend to discuss further evaluation with neurologis helen who he sees regularly [id number] CAR JEREZ, DO PRIMARY [facility]ARE [address] [place] [address] 08/16/2023 14:36:00 08/16/2023 15:14:33 Has a sore throat 637668219 J02.9 Acute upper respirator y tract infection, patient's hypertensi on is difficult to treat when he gets sick his blood pressure is even more difficult to treat. We will give Z-Horacio [id number] AGATA TORRES, DO [facility] [address] [place] [address] 10/18/2023 09:44:38 10/18/2023 10:47:54 Abdominal pain 27414699 R10.9 Diarrhea 96476200 R19.7 Vomiting 239151686 R11.1 0 Health Concerns Section Related Observation LastModified by Organization Detai ls LastModified Time None Recorded Concern Status LastModified by Organization Details LastModified Time None Recorded Advance Directives Directive None Recorded Payers Insurance Date Sequence Insurance Name Policy Number Policy Jewell Covered Member ID Jewell Member ID Guarantor Name 10/18/2023 1 [employer] (MEDICARE REPLACEMENT/A DVANTAGE - HMO) Dewayne Kurtz [id number] Dewayne Kurtz 05/08/2023 1 [place] [id number] Mae Ramos [id number] Dewayne Kurtz 04/10/2024 1 [facility] (MEDICARE REPLACEMENT/A DVANTAGE - PPO) [id number] Dewayne Kurtz [id number] Dewayne Kurtz 08/16/2023 1 [facility] (O) [id number] Dewayne Kurtz [id number] Dewayne Kurtz 08/16/2023 1 [facility] (O) [id number] Dewayne Kurtz [id number] Dewayne Kurtz
--- OUTSIDE RECORDS SUMMARY | 2025-03-17 11:50 | XMS_ITS | Clinical Summary ---
Author Organization [employer] ([place], [place], [place], [place]) Address [address] [place] [address] Care Team Providers Care Courtesy Bus Driver Name Role Phone Michael Luke DO Primary [...] TIMES DAILY. 360 tablet 3 02/11/20 Active Family History Medical History Relation Name Comments Hypertension Father Seizures Father Stroke Father Diabetes Mother Anxiety disorder Other Diabetes Other Seizures Other Stroke Other Seizures Paternal Grandmother Stroke Paternal Grandmother Relation Name Status Comments Father Alive Mother Other Paternal Grandmother Social History Tobacco Use Types Packs/Day Years [...] Date Kevin rded Speak language other than Danish at home Not on file 09/01/2023 Want [...] 08/02/2023 3:21 PM EST Plan of Treatment Health Maintenance Due Date Last Done Comments CT Colonography 1980 Colonoscopy 1980 Colorectal Cancer Screening 1980 FOBT/FIT 1979 Fit-DNA (Cologuard) 1980 Sigmoidoscopy 1980 Depression Screening (12+) 1991 HIV Screening 1994 Hepatitis C Screening 1997 DTAP/TDAP/TD VACCINES (1 - Tdap) 1998 Lipid Panel 2014 Medicare Initial AWV [id number] 08/22/2023 COVID-19 VACCINE (3 - 2023-2 5 season) 2024 03/28/2021, 02/27/2021 Tobacco Cessation Counseling and Screening (12+) 08/02/2024 08/02/2023 Influenza Vaccine (#1) 2025 Pneumococcal Vaccine: 0-49 Years Aged Out No longer eligible b ased on patient's age to complete [place] [address] [employer] MEDICARE HMO Care Teams Courtesy Bus Driver Relationship Specialty Start Date End Date Michael Luke DO PCP - General General Internal Medicine 08/02/23
--- OUTSIDE RECORDS SUMMARY | 2025-03-17 11:50 | XMS_ITS | Clinical Summary ---
Author Organization [facility] Address [address] [place] [address] Care Team Providers Care Radiology Nurse Name Role Phone Unavailable Primary Care Provider Unavailabl e Social History Tobacco Use Types Packs/Day Years Used Date Smoking Tobacco: Never Assessed Abuse Screen Answer Date Recorded Unsafe at Home or Work/School Not on file Feels Threatened by Someone? Not on file 05/2023 Does Anyone Keep You from Co ntacting Others or Doint Things Outside the Home? Not on file 05/30/2023 Physical Sign of Abuse Present Not on file 1 Housing Stability Answer Date Recorded Current Living Arrangements Not on file 05/21 Potentially Unsafe Housing Conditions Not on nikki e 05/30/2023 Family and Community Support Answer Bo e Recorded Help with Day-to-Day Activities Not on file 05/30/2023 Lonely or Isolated Not on file 05/30/2023 Employment Answer Date Recorded Do you want help finding or keeping work or a isaiah b? Not on file 05/30/2023 Disabilities Answer Date Recorded Concentrating, Remembering, or Making Decisions Difficulty Not on file 05/30/2023 Doing Errands Independently Difficulty Not on fi le 05/30/2023 Education Answer Date Recorded Help with school or training? Not on file Preferred Language Not on file 05/30/2023 Sex and Gender Information Value Date Recorded Sex Assigned at Not on file Legal Sex Male 1:40 PM EDT Gender Identity Not on file Sexual Orientation Not on file Plan of Treatment Health Maintenance Due Date Last Done Comments ANNUAL PHYSICAL 1980 HEPATITIS C SCREENING 1979 TDAP/TD VACCINES (1 - Tdap) 1998 COVID-19 Vaccine (2023-2 5 season) 2024 COLOGUARD 2024 COLON CANCER SCREENING 5 YEA R SIGMOIDOSCOPY 2024 COLONOSCOPY 2024 [address]AL CANCER SCREENING 2024 CT COLONOGRAPHY 2024 FECAL OCCULT BLOOD TEST 2024 FIT Testing (1 year) 2024 INFLUENZA VACCINE 05/21/2025 Pneumococcal Vaccine 0-49 Aged Out No longer eligible based on patient's age to complete this topic
--- OUTSIDE RECORDS SUMMARY | 2025-03-17 11:50 | XMS_ITS | Encounter Summary ---
Author Organization [employer] ([place], [place], [place], [place]) Address [address] [place] [address] Care Team Providers Care Rock Breaker Name Role Phone Marly Michael Tania MARK Primary Care Provider Encounter Details Date Type Department Care Team (Late st Contact Info) Description 05/17/2020 Transcribed Document [facility] Family Medicine [address] [place] [address] ProviderAugustus MD [address] [place], [place] [address] Social History Tobacco Use Types Packs/Day Years Used Date Smoking Tobacco: Never Assessed Sex and Gender Information Value Date Recorded Sex Assigned at Not on file Legal Sex Male 5:55 PM CDT Gender Identity Not on file Sexual Orientation Not on file documented as of this encounter Miscellaneous Notes * [employer]ner Conversion Note - Augustus ProviderMD - 05/17/2020 11:07 AM CDT Meds to Bed Enrollment Entered On: 05/17/2020 11:07 EDT Performed On: 05/17/2020 11:07 EDT by PAVAN REYNOSO PHARMACIST-MEDICATION RECON Meds to Bed Enrollment Patient Enrollment Decision: : No/do not enroll in meds to bed program Reason for Declining Meds to Bed Program: : Prefer to use home pharmacy PAVAN REYNOSO PHARMACIST-MEDICATION RECON - 05/17/2020 11:07 EDT documented in this encounter Plan of Treatment Not on file documented as of this encounter Visit Diagnoses Not on filedocumented in this encounter Care Teams Rock Breaker Relationship Specialty Start Date End Date Michael Luke DO PCP - General General Internal Medicine 08/02/23 documented as of this encounter
--- OUTSIDE RECORDS SUMMARY | 2025-03-17 11:50 | XMS_ITS | Encounter Summary ---
Author Organization [employer] ([place], [place], [place], [place]) Address [address] [place] [address] Care Team Providers Care Credit Reference Clerk Name Role Phone Michael Luke DO Primary Care Provider Encounter Details Date Type Department Care Team (Late st Contact Info) Description 05/17/2020 Transcribed Document [facility] [place] Medicine [address] [place] [address] ProviderAugustus MD [address] [place], [place] [id number] Social History Tobacco Use Types Packs/Day Years Used Date Smoking Tobacco: Never Assessed Sex and Gender Information Value Date Recorded Sex Assigned at Not on file Legal Sex Male 5:55 PM CDT Gender Identity Not on file Sexual Orientation Not on file documented as of this encounter Miscellaneous Notes * [employer] Conversion Note - Historical ProviderMD - 05/17/2020 2:00 AM CDT Employee Adviser Details Entered On: 05/17/2020 2:46 EDT Performed On: 05/17/2020 2:00 EDT by Deidra Allison RN Order Details Order Detail : N/A Deidra Allison RN - 05/17/2020 2:46 EDT documented in this encounter Plan of Treatment Not on file documented as of this encounter Visit Diagnoses Not on filedocumented in this encounter Care Teams Credit Reference Clerk Relationship Specialty Start Date End Date Michael Luke DO PCP - General General Internal Medicine 08/02/23 documented as of this encounter
--- OUTSIDE RECORDS SUMMARY | 2025-03-17 11:50 | XMS_ITS | Encounter Summary ---
Author Organization [employer] ([place], [place], [place], [place]) Address [address] [place] [address] Care Team Providers Care Leather Drier Name Role Phone Michael Luke Tania MARK Primary Care Provider Encounter Details Date Type Department Care Team (Late st Contact Info) Description 05/17/2020 Transcribed Document [facility] [place] [facility] [place], [place] [id number] Augustus Briseno MD [address] [place] [address] Social History Tobacco Use Types Packs/Day Years Used Date Smoking Tobacco: Never Assessed Sex and Gender Information Value Date Recorded Sex Assigned at Not on file Legal Sex Male 5:55 PM CDT Gender Identity Not on file Sexual Orientation Not on file documented as of this encounter Miscellaneous Notes * Cerner Conversion Note - Augustus Briseno MD - 05/17/2020 9:31 AM CDT DATE OF SERVICE: 05/16/2020 REPORT TYPE: EEG REFERRING PHYSICIAN: Aura Chavez MD REPORT TITLE: Video Electroencephalogram Report STUDY DURATION: One day. HISTORY: This is a 39-year-old man being evaluated for intractable epilepsy. EEG VIDEO MONITORING METHODOLOGY: Time-locked EEG-video monitoring was performed using the 32-channel eRALOS3 monitoring system. The seizure detection computer was [...] SAMPLES: The recording was reviewed. During wakefulness, 10 to 11 Hz activity is seen posteriorly. Lower amplitude faster activity in the beta range is noted with a wider distribution. 4 to 5 Hz theta waves and less frequent higher amplitude 2 to 3 Hz delta waves are noted at F8-T8. 4 to 5 Hz theta waves were seen independently intermittently at F7-T7. During sleep, well-formed sleep spindles are seen in both hemispheres. SPIKE DETECTION: The spike detection program was activated during the period of monitoring and revealed no abnormal paroxysmal activity. EEG DIAGNOSIS: This is an abnormal video EEG study because of: 1. Focal slow-wave activity at F8-T8. 2. Intermittent slow waves noted independently at F7-T7. CLINICAL INTERPRETATION: The patient had no clinical event during the period of monitoring. Continuous EEG recordings showed no electrographic ictal discharge or other epileptiform abnormality. This video EEG study therefore provides no evidence to support the diagnosis of epilepsy. However, that diagnosis cannot be excluded, particularly in the absence of a recorded event. EEG recordings showed focal slow-wave activity in the right anterior temporal electrodes consistent with focal cerebral dysfunction in the right anterior temporal region. Intermittent slow waves were seen independently in the left anterior temporal electrodes, suggestive of milder focal cerebral dysfunction in the left anterior temporal region. /[id number] MD MADDY Pérez/AQ / MADDY / MODL /[id number] documented in this encounter Plan of Treatment Not on file documented as of this encounter Visit Diagnoses Not on filedocumented in this encounter Care Teams Leather Drier Relationship Specialty Start Date End Date Michael Luke, PCP - General General Internal Medicine 08/02/23 documented as of this encounter
--- OUTSIDE RECORDS SUMMARY | 2025-03-17 11:50 | XMS_ITS | Encounter Summary ---
Author Organization [employer] ([place], [place], [place], [place]) Address [address] [place] [address] Care Team Providers Care Development Planner Name Role Phone Michael Luke DO Primary Care Provider Encounter Details Date Type Department Care Team (Late st Contact Info) Description 05/17/2020 Transcribed Document [facility] [place] Family Medicine [address] [place] [address] ProviderAugustus MD [address] [place] [address] Social History Tobacco Use Types Packs/Day Years Used Date Smoking Tobacco: Never Assessed Sex and Gender Information Value Date Recorded Sex Assigned at Not on file Legal Sex Male 5:55 PM CDT Gender Identity Not on file Sexual Orientation Not on file documented as of this encounter Miscellaneous Notes * Cerner Conversion Note - Augustus Briseno MD - 05/17/2020 10:52 AM CDT [facility] [address] [place] [id number] DEWAYNE KURTZ :1980 Visit Time:05/15/2020 Your Visit Summary Your Care Team Admitting Physician - KELSEY AVALOS MD-NEU Attending Physician - KELSEY AVALOS MD-NEU Primary Care Physician - WHITNEY LUKE (REF)MD-INT Referring Physician - KELSEY AVALOS MD-NEU Your Diagnosis Intractable localization-related epilepsy Discharge Vitals Temperature 36.6 ??C Heart Rate (Monitored) 71 Respiratory Rate 14 Blood Pressure 138/91 What to do next Instructions From Your Care Team Discharge Activity: Discharge Activity: Activity as tolerated Diet: Discharge Diet: Regular diet as tolerated Follow-Up Appointments Follow Up with KELSEY AVALOS When Within 6 months Comments The office will contact you monday morning with your follow up appointment. Please feel free to call them if you would like to make the appointment yourself. Where: [facility] [address] [place] [id number] [facility] (1) Medications What How Much When Instructions Next Dose amLODIPine (Norvasc 10 mg oral tablet) 1 Tablet(s) Oral Every Day carvedilol (Coreg 25 mg oral tablet) 1 Tablet(s) Oral Two Times A Day fenofibrate 135 Milligram(s) Oral Every Day OXcarbazepine (OXcarbazepine 300 mg oral tablet) 1.5 Tablet(s) Oral Two Times A Day spironolactone (spironolactone 25 mg oral tablet) 1 Tablet(s) Oral Every Day SUMAtriptan (SUMAtriptan 50 mg oral tablet) 1 Tablet(s) Oral One Time Order as needed for as needed for migraine headache may repeat dose after 2 hours up to a maximum of 200 mg in 24 hours Take your medications faithfully. Do NOT skip [...] cramping, rapid heartbeat, difficulty sleeping, and nervousness. Please dispose of unused and medications per your retail pharmacy guidance. Allergies No Known Allergies Immunizations This Visit No Immunizations Found Education Materials Seizure, Adult A seizure is a sudden [...] of having seen or heard something before (d??j?? vu). ??? Odd tastes or smells. ??? [...] these instructions at home: Medicines ??? Take qxbp-ssw-cqoklrt and prescription medicines only as told by [...] check with your local DMV (department of [place]) to find out about local driving laws. [...] medicines are used to treat seizures. Take lguf-tny-nsmxcvm and prescription medicines only as told by your health care provider. This information is not intended to replace advice given to you by your health care provider. Make sure you discuss any questions you have with your health care provider. Document Released: 08/04/2001 Document Revised: 10/25/2019 Document Reviewed: 10/25/2019 [employer] Patient Education ?? 2020 [employer]. oxcarbazepine (ox aldo walker) Oxtellar XR, Trileptal What is the most important information I should know about oxcarbazepine? Seek medical treatment if you have symptoms of a serious drug reaction: skin rash, fever, swollen glands, flu-like symptoms, unusual bruising or bleeding, or yellowing of your skin or eyes. Call your doctor right away if you have symptoms of low sodium levels in your body, such as nausea, confusion, severe weakness, muscle pain, or increased seizures. Some people have thoughts about suicide while taking seizure medicine. Stay alert to changes in your mood or symptoms. Report any new or worsening symptoms to your doctor. Do not stop using oxcarbazepine suddenly. What is oxcarbazepine? Oxcarbazepine is an anticonvulsant. It works by decreasing nerve impulses that cause seizures and pain. Oxcarbazepine is used either alone or with other medicines to treat partial seizures. The Trileptal brand of oxcarbazepine is used as a single medicine in adults and children who are at least 4 years old. Trileptal is used with other medicines in adults and children who are at least 2 years old. The Oxtellar XR brand of oxcarbazepine is used with other medicines in adults and children who are at least 6 years old. Oxcarbazepine may also be used for purposes not listed in this medication guide. What should I discuss with my healthcare provider before taking oxcarbazepine? You should not take this medicine if you are allergic to oxcarbazepine or eslicarbazepine. Tell your doctor if you have ever had: ?? liver disease; ?? kidney disease; ?? mood problems or suicidal thoughts; or ?? an allergy to carbamazepine (Carbatrol, Tegretol). Some people have thoughts about suicide while taking oxcarbazepine. Your doctor will need to check your progress at regular visits. Your family or other caregivers should also be alert to changes in your mood or symptoms. Do not start or stop taking oxcarbazepine during without your doctor's advice. Having a seizure during could harm both mother and baby. Tell your doctor right away if you become while taking oxcarbazepine for seizures. If you are , your name may be listed on a registry to track the effects of oxcarbazepine on the baby. Oxcarbazepine can make control pills less effective. Ask your doctor about using a non-hormonal control (condom, diaphragm with spermicide) to prevent . You should not breast-feed while you are taking oxcarbazepine. Do not give this medicine to a child without medical advice. There are specific age restrictions for the use of oxcarbazepine in children, depending on the dose form and whether it is used alone or with other medicines. How should I take oxcarbazepine? Follow all directions on your prescription label and read all medication guides or instruction sheets. Your doctor may occasionally change your dose. Use the medicine exactly as directed. Shake the oral suspension (liquid) before you measure a dose. Use the dosing syringe provided, or use a medicine dose-measuring device (not a kitchen spoon). Give the liquid directly from the oral syringe, or mix the medicine with a small glass of water. After using the syringe, rinse it with water and allow it to air dry. Take the oxcarbazepine extended-release tablet on an empty stomach, at least 1 hour before or 2 hours after a meal. You may take the oxcarbazepine oral liquid or regular tablet with or without food. Swallow the extended-release tablet whole and do not crush, chew, or break it. You may need frequent blood tests. Do not stop using oxcarbazepine suddenly, even if you feel fine. Stopping suddenly may cause increased seizures. Follow your doctor's instructions about tapering your dose. In case of emergency, wear or carry medical identification to let others know you use oxcarbazepine. Seizures are often treated with a combination of drugs. Use all medications as directed by your doctor. Read the medication guide or patient instructions provided with each medication. Do not change your doses or medication schedule without your doctor's advice. Store at room temperature away from moisture and heat. Throw away any unused liquid 7 weeks after opening the bottle. What happens if I miss a dose? Take the medicine as soon as you can, but skip the missed dose if it is almost time for your next dose. Do not take two doses at one time. What happens if I overdose? Seek emergency medical attention or call the Poison Help line at . What should I avoid while taking oxcarbazepine? Do not drink alcohol. Drinking alcohol can increase certain side effects, and may increase the risk of seizures. Avoid becoming overheated or dehydrated during exercise, in hot weather, or by not drinking enough fluids. Follow your doctor's instructions about the type and amount of liquids you should drink. Avoid driving or hazardous activity until you know how this medicine will affect you. Your reactions could be impaired. What are the possible side effects of oxcarbazepine? Get emergency medical help if you have signs of an allergic reaction: hives; difficult breathing; swelling of your face, lips, tongue, or throat. Seek medical treatment if you have a serious drug reaction that can affect many parts of your body. Symptoms may include: skin rash, fever, swollen glands, flu-like symptoms, muscle aches, severe weakness, unusual bruising, or yellowing of your skin or eyes. Oxcarbazepine can reduce the sodium in your body to dangerously low levels, which can cause a life-threatening electrolyte imbalance. Call your doctor right away if you have nausea, lack of energy, confusion, feeling tired or irritable, severe weakness, muscle pain, or increased seizures. Report any new or worsening symptoms to your doctor, such as: mood or behavior changes, depression, anxiety, or if you feel agitated, hostile, restless, hyperactive (mentally or physically), or have thoughts about suicide or hurting yourself. Common side effects may include: ?? dizziness, drowsiness, tiredness; ?? balance or coordination problems; ?? nausea, vomiting; ?? tremors or shaking; ?? double vision; or ?? rash. This is not a complete list of side effects and others may occur. Call your doctor for medical advice about side effects. You may report side effects to FDA at 4-519-YND-1159. What other drugs will affect oxcarbazepine? Using oxcarbazepine with other drugs that make you drowsy can worsen this effect. Ask your doctor before using opioid medication, a sleeping pill, a muscle relaxer, or medicine for anxiety or seizures. Sometimes it is not safe to use certain medications at the same time. Some drugs can affect your blood levels of other drugs you take, which may increase side effects or make the medications less effective. Many drugs can affect oxcarbazepine. This includes prescription and ucbr-pun-vfmhixp medicines, vitamins, and herbal products. Not all possible interactions are listed here. Tell your doctor about all your current medicines and any medicine you start or stop using. Where can I get more information? Your pharmacist has information about oxcarbazepine. Remember, keep this and all other medicines out of the reach of children, never share your medicines with others, and use this medication only for the indication prescribed. Every effort has been made to ensure that the information provided by [employer]. ('[employer]') is accurate, up-to-date, and complete, but no guarantee is made to that effect. Drug information contained herein may be time sensitive. [employer] information has been compiled for use by healthcare practitioners and consumers in the [place] and therefore [employer] does not warrant that uses outside of the [place] are appropriate, unless specifically indicated otherwise. [employer]s drug information does not endorse drugs, diagnose patients or recommend therapy. [employer] drug information is an informational resource designed to assist licensed healthcare practitioners in caring for their patients and/or to serve consumers viewing this service as a supplement to, and not a substitute for, the expertise, skill, knowledge and judgment of healthcare practitioners. The absence of a warning for a given drug or drug combination in no way should be construed to indicate that the drug or drug combination is safe, effective or appropriate for any given patient. [employer] does not assume any responsibility for any aspect of healthcare administered with the aid of information [employer] provides. The information contained herein is not intended to cover all possible uses, directions, precautions, warnings, drug interactions, allergic reactions, or adverse effects. If you have questions about the drugs you are taking, check with your doctor, nurse or pharmacist. Copyright 8327-1947 [employer]. Version: 10.09. Revision Date: 12/22/2017. Emergency Awareness and Preventative Care STROKE is an EMERGENCY Every Minute Counts Act FAST and Check for these signs: FACE Does the face look uneven? ARM Does one arm drift down? SPEECH Does their speech sound strange? TIME Call at any sign of stroke Stroke Risk Factors Atrial Fibrillation (irregular heartbeat) Diabetes Family history of stroke Heart Disease Heavy alcohol use High Blood Pressure High Cholesterol Physical inactivity and obesity Smoking Cigarette Smoking The facts are clear, cigarette smoking will shorten your life. Smoking can cause many illnesses along the way. As a healthcare provider, we recommend that you stop smoking. Assistance with quitting is available by contacting 8-359-YKWTChemayiNOW. This is a free resource providing counseling, support, and referral. Or you may contact your personal physician. National Suicide Prevention Lifeline: The National Suicide Prevention Lifeline is a national network of local crisis centers that provides free and confidential emotional support to people in suicidal crisis or emotional distress 24 hours a day, 7 days a week. Don't Wait! Stop a Heart Attack Before it Starts What is a heart attack? A heart attack is damage or to a part of the heart from severely decreased or lack of blood flow to the heart. Over time, arteries can become narrow from the buildup of fat and cholesterol, which is called plaque. The plaque can rupture causing a blood clot to form. When the blood clot forms, the artery can become severely narrowed or completely blocked, causing a heart attack. Heart attack is the leading cause of in the [place]. 85% of muscle damage occurs within the first 2 hours. Delay in the recognition of heart attack symptoms increases the chances of . Know the early symptoms of a heart attack: Nausea Feeling of fullness in chest Jaw Pain Pain that travels down one or both arms Fatigue/being tired Anxiety Back Pain Chest pressure, squeezing, or discomfort Shortness of breath Sweating, or a cold sweat Feeling of impending doom There are unusual signs of a heart attack, too! Women, the elderly, and diabetics may present with atypical symptoms: Fainting/dizziness Weakness Confusion Risk Factors for a Heart Attack Some heart disease risk factors, such as age and family history, cannot be changed. Others, like smoking and lack of exercise, can be changed. Smoking High Cholesterol High Blood Pressure Family History Obesity Age Gender (Males are at higher risk) Lack of Exercise Diabetes Diet Stress Excessive Alcohol Intake If you or someone you know is experiencing the signs and symptoms of a heart attack, DON???T DELAY. Call immediately and seek help. If someone collapses, perform CPR! Do not attempt to drive if you are having symptoms of heart attack. Hands-Only CPR Why Hands-Only CPR? Hands-Only CPR has been shown to be as effective as conventional CPR for cardiac arrests that occur outside of a hospital. Survival depends on immediately receiving CPR from someone nearby. How do you perform Hands-Only CPR? There are two easy steps: Call if you see a teen or adult collapse Push hard and fast in the center of the chest at a beat of 100 beats per minute. Save a life! 4 WAYS TO GET AHEAD OF SEPSIS SEPSIS is a MEDICAL EMERGENCY. Time matters! Infections put you and your family at risk for a life-threatening condition called sepsis. Sepsis is the body's extreme response to an infection. It is life-threatening, and without timely treatment, sepsis can rapidly lead to tissue damage, organ failure, and . Sepsis happens when an infection you already have-in your skin, lungs, urinary tract or somewhere else-triggers a chain reaction throughout your body. 1 [...] sepsis or if you have an infection that is not getting better or is getting worse. To learn more about sepsis and how to prevent infections, visit www.cdc.gov/sepsis. Test Results Laboratory or Other Results This Visit (last charted value for your 05/15/2020 visit) No Laboratory or Other Results This Visit Patient Name:DEWAYNE KURTZ I have received and understand this information and was given the opportunity to ask questions. Patient/Cemetery Keeper Name: Patient/Cemetery Keeper Signature: Relationship to Patient: Clinician/Hospital Cemetery Keeper Signature: Date: Electronically signed by Frankie, [facility] Conversion Dye Reel Operator Helper Cerner at 12/05/2022 2:41 PM CDT documented in this encounter Plan of Treatment Not on file documented as of this encounter Visit Diagnoses Not on filedocumented in this encounter Care Teams Development Planner Relationship Specialty Start Date End Date Michael Luke DO PCP - General General Internal Medicine 08/02/23 documented as of this encounter
--- OUTSIDE RECORDS SUMMARY | 2025-03-17 11:50 | XMS_ITS | Encounter Summary ---
Author Organization [employer] ([place], [place], [place], [place]) Address [address] [place] [address] Care Team Providers Care Coroner'S Juror Name Role Phone Michael Luke Primary Care Provider Encounter Details Date Type Department Care Team (Late st Contact Info) Description 05/17/2020 Transcribed Document [facility] [place] Family Medicine [address] [place], [place] [id number] Augustus Briseno MD [address] [place] [address] Social History Tobacco Use Types Packs/Day Years Used Date Smoking Tobacco: Never Assessed Sex and Gender Information Value Date Recorded Sex Assigned at Not on file Legal Sex Male 5:55 PM CDT Gender Identity Not on file Sexual Orientation Not on file documented as of this encounter Miscellaneous Notes * Cerner Conversion Note - Augustus Briseno MD - 05/17/2020 10:06 AM CDT DATE OF SERVICE: 05/17/2020 REPORT TYPE: EEG REFERRING PHYSICIAN: Aura Chavez MD REPORT TITLE: Video Electroencephalogram Report. STUDY DURATION: 3 hours 30 minutes. HISTORY: This is a 39-year-old man with intractable epilepsy being evaluated for exacerbation of seizures. EEG VIDEO MONITORING METHODOLOGY: Time-locked EEG-video monitoring was performed using the 32-channel [employer] monitoring system. The seizure detection computer was [...] AND EEG ANALYSIS: There was no event reported. TIME SAMPLES: The recording was reviewed. During wakefulness, 10 to 11 Hz activity is seen posteriorly. 4 to 5 Hz theta waves and occasional 2 to 3 Hz delta waves are noted at F8-T8. Similar activity is noted less prominently at F7-T7. On occasion, slow waves had a wider field of distribution involving at Fp2-F4 and Fp1-F3 respectively. Sleep was recorded with the appearance of well-formed sleep spindles in both hemispheres. SPIKE DETECTION: The spike detection program was activated during the period of monitoring and revealed no abnormal paroxysmal activity. EEG DIAGNOSES: This is an abnormal video EEG study because of: 1. Focal slow wave activity at F8-T8. 2. Intermittent slow waves seen independently at F7-T7. CLINICAL INTERPRETATION: There was no clinical events reported. Continuous EEG recording showed no epileptiform abnormality. EEG recordings showed focal slow-wave activity in the right anterior temporal electrodes consistent with focal cerebral dysfunction in the right anterior temporal region. Slow waves were seen less prominently independently in the left anterior temporal electrodes suggestive of milder focal cerebral dysfunction in the left anterior temporal region. /[id number] Aura Chavez MD TAF/AQ / TAF / MODL /[id number] Electronically signed by Frankie [facility] Conversion Spool Sorter Cerner at 12/05/2022 2:26 PM CDT documented in this encounter Plan of Treatment Not on file documented as of this encounter Visit Diagnoses Not on filedocumented in this encounter Care Teams Coroner'S Juror Relationship Specialty Start Date End Date Michael Luke DO PCP - General General Internal Medicine 08/02/23 documented as of this encounter
--- OUTSIDE RECORDS SUMMARY | 2025-03-17 11:50 | XMS_ITS | Encounter Summary ---
Author Organization [employer] ([place], [place], [place], [place]) Address [address] [place] [address] Care Team Providers Care Waterproofer Helper Name Role Phone NirmalandreafrandyMichael Tania MARK Primary Care Provider Encounter Details Date Type Department Care Team (Late st Contact Info) Description 05/16/2020 Transcribed Document [facility] [place] [address] [place] [address] ProviderAugustus MD [address], [place] [id number] Social History Tobacco Use Types Packs/Day Years Used Date Smoking Tobacco: Never Assessed Sex and Gender Information Value Date Recorded Sex Assigned at Not on file Legal Sex Male 5:55 PM CDT Gender Identity Not on file Sexual Orientation Not on file documented as of this encounter Miscellaneous Notes * Cerner Conversion Note - Augustus ProviderMD - 05/16/2020 5:00 AM CDT Chart Check - Review Order Profile Entered On: 05/16/2020 5:55 EDT Performed On: 05/16/2020 5:00 EDT by Rigoberto Jasmine Rn-Traveler Chart Check Powerplans Initiated/Discontinued as Appropriate : Yes All Active Orders Reviewed : Yes Rigoberto Jasmine Rn-Traveler - 05/16/2020 5:54 EDT documented in this encounter Plan of Treatment Not on file documented as of this encounter Visit Diagnoses Not on filedocumented in this encounter Care Teams Waterproofer Helper Relationship Specialty Start Date End Date Michael Luke DO PCP - General General Internal Medicine 08/02/23 documented as of this encounter
--- OUTSIDE RECORDS SUMMARY | 2025-03-17 11:50 | XMS_ITS | Encounter Summary ---
Author Organization [employer] ([place], [place], [place], [place]) Address [address] [place] [address] Care Team Providers Care Curator Horticultural Museum Name Role Phone Nirmalandreafrandy Michael Tania MARK Primary Care Provider Encounter Details Date Type Department Care Team (Late st Contact Info) Description 05/17/2020 Transcribed Document [facility] [place] Family Medicine [address] [place] [address] ProviderAugustus MD [address] [place], [place] [address] Social History Tobacco Use Types Packs/Day Years Used Date Smoking Tobacco: Never Assessed Sex and Gender Information Value Date Recorded Sex Assigned at Not on file Legal Sex Male 5:55 PM CDT Gender Identity Not on file Sexual Orientation Not on file documented as of this encounter Miscellaneous Notes * Cerner Conversion Note - Augustus ProviderMD - 05/17/2020 12:47 PM CDT Final Discharge Planning Entered On: 05/17/2020 12:48 EDT Performed On: 05/17/2020 12:47 EDT by STEVEN PALMER RN-Cello Teacher Final Discharge Planning Discharge Arrangements : Patient Post-Acute Information Patient Name: DEWAYNE UKRTZ Gender: Male : [birth year] Age: 39 Years No Post-Acute Placement(s) Listed No Post-Acute Service(s) Listed No Curaspan Referral(s) Listed Patient Offered Choice/Affiliations Explained : No Transportation Needs : Family/Friend Follow Up Appointment Scheduled : No (Comment: List of follow up appointments sent to Patient Access. [STEVEN PALMER RN-Cello Teacher - 05/17/2020 12:47 EDT] ) Is Patient High/Moderate Readmission Risk? : No Patient/Family Notified of Plan : Yes Patient/Family Notified : Patient Is Patient Ready for Discharge? : Yes Physician Notified Patient is Ready for Discharge? : Yes Discharge To Care Management : Home/Residential/Jail or Self Care -01 STEVEN PALMER RN-Cello Teacher - 05/17/2020 12:47 EDT Final Narrative Note Final Narrative Note : RAR Low HD#2 Discharged home with family. STEVEN PALMER RN-Cello Teacher - 05/17/2020 12:47 EDT documented in this encounter Plan of Treatment Not on file documented as of this encounter Visit Diagnoses Not on filedocumented in this encounter Care Teams Curator Horticultural Museum Relationship Specialty Start Date End Date Michael Luke DO PCP - General General Internal Medicine 08/02/23 documented as of this encounter
== END 2025-03-13 23:59 | disposition home or self-care (01) ==
LOC: LAB.DROPOF 03-17 11:47
PROVIDERS: PCP Nurse Practitioner Family; Visit Provider Nurse Practitioner Family
DX: G47.00 Insomnia, unspecified (principal); E78.1 Pure hyperglyceridemia; E53.8 Deficiency of other specified B group vitamins; G43.709 Chronic migraine without aura, not intractable, without status migrainosus; E11.9 Type 2 diabetes mellitus without complications; I10 Essential (primary) hypertension; G47.33 Obstructive sleep apnea (adult) (pediatric); N52.9 Male erectile dysfunction, unspecified; E78.5 Hyperlipidemia, unspecified
CPT/HCPCS: 80048; 80061; 81001; 82043; 82570; 82607; 83036; 84156; 84403; 84439; 84443

== ENCOUNTER 2025-03-24 10:59 | Outpatient (CLI) | payer MEDICARE, SELFPAY ==
[2025-03-25 10:12] LABS: Testosterone,Total 356 ng/dL (264-916)
--- OUTSIDE RECORDS SUMMARY | 2025-03-25 14:29 | XMS_ITS | Encounter Summary ---
Author Organization [employer] ([place], [place], [place], [place]) Address [address] [place] [address] Care Team Providers Care Department Store Manager Name Role Phone NirmalandreafrandyMichael Tania MARK Primary Care Provider Encounter Details Date Type Department Care Team (Late st Contact Info) Description 05/17/2020 Transcribed Document [facility] [place] [address] [place] [address] ProviderAugustus MD [address] [place] [address] Social History Tobacco Use Types Packs/Day Years [...] On: 05/17/2020 10:51 EDT by Krupa Manning sap technical developer Documentation Discharge Date/Time : 05/17/2020 10:51 EDT [...] 05/17/2020 10:51 EDT Electronically signed by Frankie [facility] Conversion Pearl Glue Operator Cerner at 12/05/2022 2:31 PM CDT documented in this encounter Plan of Treatment Not on file documented as of this encounter Visit Diagnoses Not on filedocumented in this encounter Care Teams Department Store Manager Relationship Specialty Start Date End Date Michael Luke DO PCP - General General Internal Medicine 08/02/23 documented as of this encounter
--- OUTSIDE RECORDS SUMMARY | 2025-03-25 14:29 | XMS_ITS | Encounter Summary ---
Author Organization [email or web address] ([place], [place], [place], [place]) Address [address] [place] [address] Care Team Providers Care Soa Architect Name Role Phone Michael Luke DO Primary Care Provider Encounter Details Date Type Department Care Team (Late st Contact Info) Description 05/17/2020 Transcribed Document [facility] [place] Family Medicine [address] [place] [address] ProviderAugustus MD [address] [place] [address] Social History Tobacco Use Types [...] Briseno MD - 05/17/2020 10:52 AM CDT [facility] [address] [place] [id number] DEWAYNE KURTZ :1980 Visit Time:05/15/2020 Your Visit [...] like to make the appointment yourself. Where: [facility] [address] [place] [id number] [facility] (1) Medications What How Much When [...] these instructions at home: Medicines ??? Take dkji-yhc-ncoeqmu and prescription medicines only as told by [...] check with your local DMV (department of [employer]) to find out about local driving laws. [...] medicines are used to treat seizures. Take ubpe-stw-ucduglv and prescription medicines only as told by your health care provider. This information is not intended to replace advice given to you by your health care provider. Make sure you discuss any questions you have with your health care provider. Document Released: 08/04/2001 Document Revised: 10/25/2019 Document Reviewed: 10/25/2019 [place] Patient Education ?? 2020 [employer]. oxcarbazepine (ox aldo walker) Oxtellar XR, Trileptal [...] may report side effects to FDA at 7-821-SIK-7232. What other drugs will affect oxcarbazepine? Using [...] can affect oxcarbazepine. This includes prescription and cahl-ylt-gbmynac medicines, vitamins, and herbal products. Not all [...] to ensure that the information provided by [employer]. ('[employer]') is accurate, up-to-date, and complete, but no guarantee is made to that effect. Drug information contained herein may be time sensitive. [employer] information has been compiled for use by healthcare practitioners and consumers in the [place] and therefore [employer] does not warrant that uses outside of the [place] are appropriate, unless specifically indicated otherwise. [employer] drug information does not endorse drugs, diagnose patients or recommend therapy. [employer] drug information is an informational resource designed [...] effective or appropriate for any given patient. [employer] does not assume any responsibility for any aspect of healthcare administered with the aid of information [employer] provides. The information contained herein is not intended to cover all possible uses, directions, precautions, warnings, drug interactions, allergic reactions, or adverse effects. If you have questions about the drugs you are taking, check with your doctor, nurse or pharmacist. Copyright 2192-9343 [employer]. Version: 10.09. Revision Date: 12/22/2017. Emergency Awareness [...] Assistance with quitting is available by contacting 4-296-GIVMVigmeNOW. This is a free resource providing counseling, [...] was given the opportunity to ask questions. Patient/Interlocking Installer Name: Patient/Interlocking Installer Signature: Relationship to Patient: Clinician/Hospital Interlocking Installer Signature: Date: Electronically signed by Frankie, [facility] Conversion Cell Tester Cerner at 12/05/2022 2:41 PM CDT documented in this encounter Plan of Treatment Not on file documented as of this encounter Visit Diagnoses Not on filedocumented in this encounter Care Teams Soa Architect Relationship Specialty Start Date End Date Michael Luke DO PCP - General General Internal Medicine 08/02/23 documented as of this encounter
--- OUTSIDE RECORDS SUMMARY | 2025-03-25 14:29 | XMS_ITS | Encounter Summary ---
Author Organization [employer] ([place], [place], [place], [place]) Address [address] [place] [address] Care Team Providers Care Binding End Stitcher Name Role Phone Nirmalandreafrandy Michael Tania MARK Primary Care Provider Encounter Details Date Type Department Care Team (Late st Contact Info) Description 05/17/2020 Transcribed Document [facility] [place] Family Medicine [address] [place] [address] ProviderAugustus MD [address] [place], [place] [address] Social History Tobacco Use Types Packs/Day Years [...] On: 05/17/2020 12:47 EDT by STEVEN PALMER RN-Mission Analyst Final Discharge Planning Discharge Arrangements : Patient Post-Acute Information Patient Name: DEWAYNE KURTZ Gender: Male : [birth year] Age: 39 Years No Post-Acute Placement(s) Listed No Post-Acute Service(s) Listed No Curaspan Referral(s) Listed Patient Offered Choice/Affiliations Explained : No Transportation Needs : Family/Friend Follow Up Appointment Scheduled : No (Comment: List of follow up appointments sent to Patient Access. [STEVEN PALMER RN-Mission Analyst - 05/17/2020 12:47 EDT] ) Is Patient High/Moderate Readmission Risk? : No Patient/Family Notified of Plan : Yes Patient/Family Notified : Patient Is Patient Ready for Discharge? : Yes Physician Notified Patient is Ready for Discharge? : Yes Discharge To Care Management : Home/Residential/Jail or Self Care -01 STEVEN PALMER RN-Mission Analyst - 05/17/2020 12:47 EDT Final Narrative Note Final Narrative Note : RAR Low HD#2 Discharged home with family. STEVEN PALMER RN-Mission Analyst - 05/17/2020 12:47 EDT Electronically signed by Lesley David Conversion Commercial Sheet Metal Foreman Cerner at 12/05/2022 2:36 PM CDT documented in this encounter Plan of Treatment Not on file documented as of this encounter Visit Diagnoses Not on filedocumented in this encounter Care Teams Binding End Stitcher Relationship Specialty Start Date End Date Michael Luke DO PCP - General General Internal Medicine 08/02/23 documented as of this encounter
--- OUTSIDE RECORDS SUMMARY | 2025-03-25 14:29 | XMS_ITS | Clinical Summary ---
Author Organization [facility] Address [facility] [place] [address] Care Team Providers Care Awning Hanger Helper Name Role Phone Michael Luke DO Primary [...] therelease of HIV test results or diagnoses. [id number] Allergies No known active allergies Medications [...] (02/19/2019): Added automatically from request for surgery [id number] Elevated troponin Family History Medical History Relation [...] Plan of Treatment Not on file Insurance [employer] ACCESS Advance Directives For more information, please contact: [phone] * Full Code (Latest Code Status on File) Date Activated Date Inactivated Comments 02/15/2019 7:32 AM 02/23/2019 6:53 PM Care Teams Awning Hanger Helper Relationship Specialty Start Date End Date Michael Luke DO [address] [place] [address] PCP - General 02/15/19
--- OUTSIDE RECORDS SUMMARY | 2025-03-25 14:29 | XMS_ITS | Encounter Summary ---
Author Organization [employer] ([place], [place], [place], [place]) Address [address] [place] [address] Care Team Providers Care Cyber Defense Analyst Name Role Phone Michael Luke DO Primary Care Provider Encounter Details Date Type Department Care Team (Late st Contact Info) Description 05/17/[address] [facility] [place] Family Medicine [address] [place] [address] ProviderAugustus MD [address] [place], [place] [id number] Social History Tobacco Use Types Packs/Day Years Used Date Smoking Tobacco: Never Assessed Sex and Gender Information Value Date Recorded Sex Assigned at Not on file Legal Sex Male 5:55 PM CDT Gender Identity Not on file Sexual Orientation Not on file documented as of this encounter Miscellaneous Notes * Cerner Conversion Note - Historical ProviderMD - 05/17/2020 2:00 AM CDT Chemistry Technician Details Entered On: 05/17/2020 2:46 EDT Performed On: 05/17/2020 2:00 EDT by Deidra Allison RN Order Details Order Detail : N/A Deidra Allison RN - 05/17/2020 2:46 EDT documented in this encounter Plan of Treatment Not on file documented as of this encounter Visit Diagnoses Not on filedocumented in this encounter Care Teams Cyber Defense Analyst Relationship Specialty Start Date End Date Michael Luke DO PCP - General General Internal Medicine 08/02/23 documented as of this encounter
--- OUTSIDE RECORDS SUMMARY | 2025-03-25 14:29 | XMS_ITS | Encounter Summary ---
Author Organization [employer] ([place], [place], [place], [place]) Address [address] [place] [address] Care Team Providers Care Nutrition Intern Name Role Phone MarlyMichael Tania MARK Primary Care Provider Encounter Details Date Type Department Care Team (Late st Contact Info) Description 05/17/2020 Transcribed Document [facility] [place] [address], [place] [id number] ProviderAugustus MD [address] [place] [address] Social History Tobacco Use Types Packs/Day Years [...] up with Dr. Chavez in 6 months. /[id number] MD MADDY Pérez/AQ / MADDY / MODL /[id number] Electronically signed by Frankie, [facility] Conversion Packer And Carry Out Cerner at 12/05/2022 2:34 PM CDT documented in this encounter Plan of Treatment Not on file documented as of this encounter Visit Diagnoses Not on filedocumented in this encounter Care Teams Nutrition Intern Relationship Specialty Start Date End Date Michael Luke DO PCP - General General Internal Medicine 08/02/23 documented as of this encounter
--- OUTSIDE RECORDS SUMMARY | 2025-03-25 14:29 | XMS_ITS | Encounter Summary ---
Author Organization [employer] ([place], [place], [place], [place]) Address [address] [place] [address] Care Team Providers Care Wood Turning Lathe Operator Name Role Phone Marly Michael Tania MARK Primary Care Provider Encounter Details Date Type Department Care Team (Late st Contact Info) Description 05/17/2020 Transcribed Document [facility] [place] Family Medicine [address] [place] [address] ProviderAugustus MD [address] [place], [place] [address] Social History Tobacco Use Types Packs/Day Years [...] on filedocumented in this encounter Care Teams Wood Turning Lathe Operator Relationship Specialty Start Date End Date Michael Luke DO PCP - General General Internal Medicine 08/02/23 documented as of this encounter
--- OUTSIDE RECORDS SUMMARY | 2025-03-25 14:30 | XMS_ITS | Encounter Summary ---
Author Organization [employer] ([place], [place], [place], [place]) Address [address] [place] [address] Care Team Providers Care Acid Tester Name Role Phone NirmalandreafrandyMichael Tania MARK Primary Care Provider Encounter Details Date Type Department Care Team (Late st Contact Info) Description 05/15/2020 Transcribed Document [facility] [place] [address] [place] [address] ProviderAugustus MD [address] [place], [place] [address] Social History Tobacco Use Types Packs/Day Years [...] on filedocumented in this encounter Care Teams Acid Tester Relationship Specialty Start Date End Date Michael Luke DO PCP - General General Internal Medicine 08/02/23 documented as of this encounter
--- OUTSIDE RECORDS SUMMARY | 2025-03-25 14:30 | XMS_ITS | Encounter Summary ---
Author Organization [employer] ([place], [place], [place], [place]) Address [address] [place] [address] Care Team Providers Care Thiokol Operator Name Role Phone Michael Luke Primary Care Provider Encounter Details Date Type Department Care Team (Late st Contact Info) Description 05/17/2020 Transcribed Document [facility] [place] [facility] [place], [place] [id number] Augustus Briseno MD [address] [place] [address] Social History Tobacco Use Types Packs/Day Years [...] EEG-video monitoring was performed using the 32-channel MobileRQ monitoring system. The seizure detection computer was [...] dysfunction in the left anterior temporal region. /[id number] MD MADDY Pérez/AQ / MADDY / MODL /[id number] Electronically signed by Lesley David Conversion Customs And Border Protection Inspector Cerner at 12/05/2022 2:16 PM CDT documented in this encounter Plan of Treatment Not on file documented as of this encounter Visit Diagnoses Not on filedocumented in this encounter Care Teams Thiokol Operator Relationship Specialty Start Date End Date Michael Luke, PCP - General General Internal Medicine 08/02/23 documented as of this encounter
--- OUTSIDE RECORDS SUMMARY | 2025-03-25 14:30 | XMS_ITS | Encounter Summary ---
Author Organization [employer] ([place], [place], [place], [place]) Address [address] [place] [address] Care Team Providers Care Director Of Global Sales Name Role Phone Michael Luke Tania MARK Primary Care Provider Encounter Details Date Type Department Care Team (Late st Contact Info) Description 05/16/2020 Transcribed Document [facility] [place] Family [facility] [place] [address] Augustus Briseno MD [address] [place] [address] Social History Tobacco Use Types Packs/Day Years [...] EEG-video monitoring was performed using the 32-channel Docebo monitoring system. The seizure detection computer was [...] dysfunction in the right anterior temporal region. /[id number] Aura Chavez MD TAF/AQ / TAF / MODL /[id number] Electronically signed by Frankie [facility] Conversion Supervisor Coal Handling Cerner at 12/05/2022 2:27 PM CDT documented in this encounter Plan of Treatment Not on file documented as of this encounter Visit Diagnoses Not on filedocumented in this encounter Care Teams Director Of Global Sales Relationship Specialty Start Date End Date Michael Luke DO PCP - General General Internal Medicine 08/02/23 documented as of this encounter
--- OUTSIDE RECORDS SUMMARY | 2025-03-25 14:30 | XMS_ITS | Clinical Summary ---
Author Organization [facility] Address [address] [place] [address] Care Team Providers Care Mucking Machine Operator Name Role Phone NirmalandreafrandyMichael Tania MARK Primary Care Provider Allergies Active [...] Description 06/27/2025 9:40 AM EST Office Visit [facility] [address] [place] [id number] Luís Bach MD [address] [place] [phone] Health Maintenance Due Date Last Done Comments [facility]-Depression Screening 1980 [facility]-Diabetes: Hemoglobin A1C 1980 [facility]-Medicare Annual Wellness (AWV) 1980 [facility]-Infant/Child/Adol SDOH Screenings 1980 Diabetes: Dental Exam 1989 [...] Years) (1 of 2 - PCV) 1998 [id number] Vaccine (3 - season) 2024 03/28/2021, 02/27/2021 [...] 1/2 Differentiation (10/07/2024 6:24 PM EST) Pathologist [facility] HIV 1 & 2 Antibody/Antigen Screen Non Reactive Non Reactive 10/07/2024 7:28 PM EST [facility] Comment:Screening for HIV 1 & 2 antibodies, and P24 antigen is NONREACTIVE. No confirmatory testing is required. Blood Venous blood specimen / Unknown Venipuncture / Unknown 10/07/2024 6:24 PM EST 10/07/2024 6:46 PM EST us Harvey [employer] Jagdeep DO LAB BLOOD ORDERABLES Final Res ult Performing Organization Address [facility]/ZIP Co de Phone Number [facility] [address] [place] [address] * Hepatitis C Antibody - ED (10/07/2024 6:24 PM EST) Pathologist [facility] Hepatitis C Antibody Negative Negative 10/07/2024 7:29 PM EST [facility] Blood Venous blood specimen / Unknown Venipuncture / Unknown 10/07/2024 6:24 PM EST 10/07/2024 6:46 PM EST Harvey [employer] Jagdeep DO LAB BLOOD ORDERABLES Final Res ult [facility] [address] [place] [address] from Last 3 Months or Most Recently Relevant to Health Maintenance Insurance [facility] MEDIC[facility] Care Teams Mucking Machine Operator Relationship Specialty Start Date End Date Michael Luke DO [facility] [address] [place] [id number] PCP - General 01/01/21
--- OUTSIDE RECORDS SUMMARY | 2025-03-25 14:30 | XMS_ITS | Clinical Summary ---
Author Organization [facility] Address [address] [place] [address] Care Team Providers Care Returned Item Clerk Name Role Phone Michael Luke DO [...] of Treatment Not on file Care Teams Returned Item Clerk Relationship Specialty Start Date End Date Michael Luke DO PCP - General Internal Medicine 05/31/15
--- OUTSIDE RECORDS SUMMARY | 2025-03-25 14:30 | XMS_ITS | Encounter Summary ---
Author Organization [employer] ([place], [place], [place], [place]) Address [address] [place] [address] Care Team Providers Care Drum Handler Name Role Phone SavitapaulyfrandyMichael Tania MARK Primary Care Provider Encounter Details Date Type Department Care Team (Late st Contact Info) Description 05/17/2020 Transcribed Document [facility] [place] [address] [place] [address] ProviderAugustus MD [address] [place], [place] [address] Social History Tobacco Use Types Packs/Day Years [...] on filedocumented in this encounter Care Teams Drum Handler Relationship Specialty Start Date End Date Michael Luke DO PCP - General General Internal Medicine 08/02/23 documented as of this encounter
--- OUTSIDE RECORDS SUMMARY | 2025-03-25 14:30 | XMS_ITS | Encounter Summary ---
Author Organization [employer] ([place], [place], [place], [place]) Address [address] [place] [address] Care Team Providers Care Online Publisher Name Role Phone SavitapaulyfrandyMichael Tania MARK Primary Care Provider Encounter Details Date Type Department Care Team (Late st Contact Info) Description 05/15/2020 Transcribed Document [facility] [place] [address] [place] [address] ProviderAugustus MD [address], [place] [id number] Social History Tobacco Use Types Packs/Day Years [...] on filedocumented in this encounter Care Teams Online Publisher Relationship Specialty Start Date End Date Michael Luke DO PCP - General General Internal Medicine 08/02/23 documented as of this encounter
--- OUTSIDE RECORDS SUMMARY | 2025-03-25 14:30 | XMS_ITS | Clinical Summary ---
Author Organization [employer] ([place], [place], [place], [place]) Address [address] [place] [address] Care Team Providers Care Auto Wheel Alignment Specialist Name Role Phone Michael Luke DO Primary [...] Date Kevin rded Speak language other than Trinidadian at home Not on file 09/01/2023 Want [...] patient's age to complete [place] [phone] [employer] MEDICARE HMO Care Teams Auto Wheel Alignment Specialist Relationship Specialty Start Date End Date Michael Luke DO PCP - General General Internal Medicine 08/02/23
--- OUTSIDE RECORDS SUMMARY | 2025-03-25 14:30 | XMS_ITS | Encounter Summary ---
Author Organization [email or web address] ([place], [place], [place], [place]) Address [address] [place] [address] Care Team Providers Care Human Resources Coordinator Name Role Phone Savitapaulyfrandy Michael Tania MARK Primary Care Provider Encounter Details Date Type Department Care Team (Late st Contact Info) Description 05/16/2020 Transcribed Document [facility] [place] Family Medicine [address] [place] [address] ProviderAugustus MD [address] [place] [address] Social History Tobacco Use Types Packs/Day Years [...] 1 Health Plan: ANTHEM HMOPPO Policy Number: [id number] Authorization Number: Insurance 2 Health Plan: MEDICARE Policy Number: [id number] Authorization Number: Insurance Primary Name : ANTHEM HMOPPO Policy Number: [id number] Authorized Service Begin Date-Primary : 05/15/2020 EDT Historical Authorization Comments-Primary : No Authorization Comments Found Linsey Anderson, Rn-Utilization Review - 05/16/2020 10:00 EDT documented in this encounter Plan of Treatment Not on file documented as of this encounter Visit Diagnoses Not on filedocumented in this encounter Care Teams Human Resources Coordinator Relationship Specialty Start Date End Date Michael Luke DO PCP - General General Internal Medicine 08/02/23 documented as of this encounter
--- OUTSIDE RECORDS SUMMARY | 2025-03-25 14:30 | XMS_ITS | Encounter Summary ---
Author Organization [employer] ([place], [place], [place], [place]) Address [address] [place] [address] Care Team Providers Care Seasonal Package Handler Name Role Phone Marly Michael Tania MARK Primary Care Provider Encounter Details Date Type Department Care Team (Late st Contact Info) Description 05/16/2020 Transcribed Document [facility] [place] Family Medicine [address] [place] [address] ProviderAugustus MD [address] [place], [place] [id number] Social History Tobacco Use Types Packs/Day Years Used Date Smoking Tobacco: Never Assessed Sex and Gender Information Value Date Recorded Sex Assigned at Not on file Legal Sex Male 5:55 PM CDT Gender Identity Not on file Sexual Orientation Not on file documented as of this encounter Miscellaneous Notes * Cerner Conversion Note - Historical ProviderMD - 05/16/2020 2:00 AM CDT Senior Web Applications Developer Details Entered On: 05/16/2020 5:54 EDT Performed On: 05/16/2020 2:00 EDT by Rigoberto Jasmine Rn-Traveler Order Details Order Detail : N/A Rigoberto Jasmine Rn-Traveler - 05/16/2020 5:54 EDT documented in this encounter Plan of Treatment Not on file documented as of this encounter Visit Diagnoses Not on filedocumented in this encounter Care Teams Seasonal Package Handler Relationship Specialty Start Date End Date Michael Luke DO PCP - General General Internal Medicine 08/02/23 documented as of this encounter
--- OUTSIDE RECORDS SUMMARY | 2025-03-25 14:30 | XMS_ITS | Encounter Summary ---
Author Organization [employer] ([place], [place], [place], [place]) Address [address] [place] [address] Care Team Providers Care Drugless Physician Name Role Phone Micahel Luke Primary Care Provider Encounter Details Date Type Department Care Team (Late st Contact Info) Description 05/17/2020 Transcribed Document [facility] [place] [place] Medicine [address], [place] [id number] Augustus Briseno MD [address] [place] [address] Social History Tobacco Use Types Packs/Day Years [...] EEG-video monitoring was performed using the 32-channel [employer] monitoring system. The seizure detection computer was [...] dysfunction in the left anterior temporal region. /[id number] Aura Chavez MD TAF/AQ / TAF / MODL /[id number] Electronically signed by Frankie [facility] Conversion Director Of Hemophilia Cerner at 12/05/2022 2:26 PM CDT documented in this encounter Plan of Treatment Not on file documented as of this encounter Visit Diagnoses Not on filedocumented in this encounter Care Teams Drugless Physician Relationship Specialty Start Date End Date Michael Luke DO PCP - General General Internal Medicine 08/02/23 documented as of this encounter
--- OUTSIDE RECORDS SUMMARY | 2025-03-25 14:30 | XMS_ITS | Encounter Summary ---
Author Organization [employer] ([place], [place], [place], [place]) Address [address] [place] [address] Care Team Providers Care Family Psychologist Name Role Phone Michael Luke DO Primary Care Provider Encounter Details Date Type Department Care Team (Late st Contact Info) Description 05/17/2020 Transcribed Document [facility] [place] Family Medicine [address] [place] [address] ProviderAugustus MD [address] [place], [place] [id number] Social History Tobacco Use Types Packs/Day Years Used Date Smoking Tobacco: Never Assessed Sex and Gender Information Value Date Recorded Sex Assigned at Not on file Legal Sex Male 5:55 PM CDT Gender Identity Not on file Sexual Orientation Not on file documented as of this encounter Miscellaneous Notes * Cerner Conversion Note - Augustus Briseno MD - 05/17/2020 10:10 AM CDT [address] , [place] [address] Patient Copy Patient Information: Name: DEWAYNE KURTZ Current Date: 05/17/2020 10:10:17 : 1980 Patient Address: [place] [address] Patient Attending Physician: KELSEY AVALOS MD-CYNTHIA Primary Care Provider: WHITNEY LUKE (REF), MD-INT Primary Care Provider 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 This is a free resource providing counseling, [...] Be sure to sign up for the [facility] patient portal, which gives you 13/03 access to your medical information ??? including these discharge instructions ??? using your computer, smartphone, or tablet. Just go to [employer] to get started. Questions? Call . [facility] would like to thank you for allowing us to assist you with your healthcare needs. I, DEWAYNE KURTZ, (or service liaison representative) have received the above patient education materials/instructions and have verbalized understanding: Patient Signature _ Date/Time Patient Roll Grinder Signature (if needed) Date/Time Clinician/Hospital Roll Grinder Signature (if needed) Date/Time Electronically signed by Frankie [facility] Conversion Vessel Slag Worker Cerner at 12/05/2022 2:11 PM CDT documented in this encounter Plan of Treatment Not on file documented as of this encounter Visit Diagnoses Not on filedocumented in this encounter Care Teams Family Psychologist Relationship Specialty Start Date End Date Michael Luke DO PCP - General General Internal Medicine 08/02/23 documented as of this encounter
--- OUTSIDE RECORDS SUMMARY | 2025-03-25 14:30 | XMS_ITS | Encounter Summary ---
Author Organization [employer] ([place], [place], [place], [place]) Address [address] [place] [address] Care Team Providers Care Company Accountant Name Role Phone SavitapaulyfrandyMichael Tania MARK Primary Care Provider Encounter Details Date Type Department Care Team (Late st Contact Info) Description 05/17/2020 Transcribed Document [facility] [place] Medicine [address] [place] [address] ProviderAugustus MD [address] [place], [place] [address] Social History Tobacco Use Types Packs/Day Years [...] these instructions at home: Medicines ??? Take jggh-adp-xbsqdjm and prescription medicines only as told by [...] medicines are used to treat seizures. Take isfu-uqn-fbaonzv and prescription medicines only as told by your health care provider. This information is not intended to replace advice given to you by your health care provider. Make sure you discuss any questions you have with your health care provider. Document Released: 08/04/2001 Document Revised: 10/25/2019 Document Reviewed: 10/25/2019 [employer] Patient Education ? 2019 [employer] documented in this encounter Plan of Treatment Not on file documented as of this encounter Visit Diagnoses Not on filedocumented in this encounter Care Teams Company Accountant Relationship Specialty Start Date End Date Michael Luke DO PCP - General General Internal Medicine 08/02/23 documented as of this encounter
--- OUTSIDE RECORDS SUMMARY | 2025-03-25 14:30 | XMS_ITS | Encounter Summary ---
Author Organization [employer] ([place], [place], [place], [place]) Address [address] [place] [address] Care Team Providers Care Broodmare Barn Groom Name Role Phone Michael Luke Tania MARK Primary Care Provider Encounter Details Date Type Department Care Team (Late st Contact Info) Description 05/15/2020 Transcribed Document [facility] [place] Family Medicine [facility] [address] ProviderAugustus MD [address] [place] [place], [place] [address] Social History Tobacco Use Types Packs/Day Years [...] dewayne Legal Guardian : No Support Person/Patient Sas Developer : No Want Family/Rep/Phys Notified of Admit : No Emergency Contact #1 : Mae Ramos Emergency Contact #1 Emergency Contact #1 Relationship : Emergency Contact #2 : n Emergency Contact #2 Phone Number : n Emergency Contact #2 Relationship : n Primary Language : German Preferred Communication Mode : Verbal Communication Barrier : None Pad Hand Needed : No Krupa Manning RN - [...] Scale Risk Level : 0-24 Low Risk [place] Fall Interventions : Adequate lighting, Assistive devices [...] Source : Stated Height Entry Format : [place] Height, Feet : 6 ft(Converted to: 183 cm, 72 Inch) Height, Inches : 0 Inch(Converted to: 0 ft 0 Inch, 0.00 cm) Clinical Height : 182.88 cm Weight Source : Bed scale Weight Entry Format : [place] Clinical Dosing Weight : 113.64 kg Weight, Pounds : 250 lb Body Surface Area (BSA) : 2.34 m2 Body Mass Index : 34 kg/m2 (HI) [place] Body Weight : 77 kg Krupa Manning [...] Krupa Manning RN - 05/15/2020 16:39 EDT [place] Suicide Severity Rating Scale (C-SSRS) CSSRS Past [...] Glasses Personal Items : Cell phone, Other: police department secretary, ear phones Personal Items Disposition : With patient Medication Disposition : With patient Medication Brought With Patient : Yes Krupa Manning RN - 05/15/2020 16:39 EDT Electronically signed by Amandeep David Conversion Crown Assembly Machine Set Up Mechanic Cerner at 12/05/2022 2:33 PM CDT documented in this encounter Plan of Treatment Not on file documented as of this encounter Visit Diagnoses Not on filedocumented in this encounter Care Teams Broodmare Barn Groom Relationship Specialty Start Date End Date Michael Luke DO PCP - General General Internal Medicine 08/02/23 documented as of this encounter
--- OUTSIDE RECORDS SUMMARY | 2025-03-25 14:30 | XMS_ITS | Encounter Summary ---
Author Organization [employer] ([place], [place], [place], [place]) Address [address] [place] [address] Care Team Providers Care Team Truck Driver Name Role Phone Marly Michael Tania MARK Primary Care Provider Encounter Details Date Type Department Care Team (Late st Contact Info) Description 05/15/2020 Transcribed Document [facility] [place] Family Medicine [address] [place] [address] ProviderAugustus MD [address] [place], [place] [address] Social History Tobacco Use Types Packs/Day Years [...] on filedocumented in this encounter Care Teams Team Truck Driver Relationship Specialty Start Date End Date Michael Luke DO PCP - General General Internal Medicine 08/02/23 documented as of this encounter
--- OUTSIDE RECORDS SUMMARY | 2025-03-25 14:30 | XMS_ITS | Referral Summary ---
Author Organization [employer] ([place], [place], [place], [place]) Address [address] [place] [address] Care Team Providers Care Rock Wool Applicator Name Role Phone Michael Luke DO Primary [...] Date Kevin rded Speak language other than Omani at home Not on file 09/01/2023 Want [...] file Insurance [employer] MEDICARE HMO Care Teams Rock Wool Applicator Relationship Specialty Start Date End Date Michael Luke DO PCP - General General Internal Medicine 08/02/23
--- OUTSIDE RECORDS SUMMARY | 2025-03-25 14:30 | XMS_ITS | Encounter Summary ---
Author Organization [employer] ([place], [place], [place], [place]) Address [address] [place] [address] Care Team Providers Care Highway Commissioner Name Role Phone NirmalandreafrandyMichael Tania MARK Primary Care Provider Encounter Details Date Type Department Care Team (Late st Contact Info) Description 05/16/2020 Transcribed Document [facility] [place] [address] [place] [address] ProviderAugustus MD [address], [place] [id number] Social History Tobacco Use Types Packs/Day Years [...] on filedocumented in this encounter Care Teams Highway Commissioner Relationship Specialty Start Date End Date Michael Luke DO PCP - General General Internal Medicine 08/02/23 documented as of this encounter
--- OUTSIDE RECORDS SUMMARY | 2025-03-25 14:30 | XMS_ITS | Clinical Summary ---
Author Organization [facility] Address [address] [place] [address] Care Team Providers Care Benefits Specialist Name Role Phone Unavailable Primary Care Provider [...]
--- OUTSIDE RECORDS SUMMARY | 2025-03-25 14:30 | XMS_ITS | Encounter Summary ---
Author Organization [employer] ([place], [place], [place], [place]) Address [address] [place] [address] Care Team Providers Care Court Crier Name Role Phone Fina Lukeew Tania MARK Primary Care Provider Encounter Details Date Type Department Care Team (Late st Contact Info) Description 05/15/2020 Transcribed Document [facility] [place] [address] [place] [address] ProviderAugustus MD [address], [place] [id number] Social History Tobacco Use Types Packs/Day Years [...] On: 05/15/2020 8:03 EDT by David Norman RN CLINICAL QUALITY LEAD Meds to Bed Enrollment Patient Enrollment Decision: : Yes/enroll in meds to bed program David Norman PHARMACY TECH LEAD - 05/15/2020 9:41 EDT documented in this encounter Plan of Treatment Not on file documented as of this encounter Visit Diagnoses Not on filedocumented in this encounter Care Teams Court Crier Relationship Specialty Start Date End Date Michael Luke DO PCP - General General Internal Medicine 08/02/23 documented as of this encounter
--- OUTSIDE RECORDS SUMMARY | 2025-03-25 14:30 | XMS_ITS | Encounter Summary ---
Author Organization [employer] ([place], [place], [place], [place]) Address [address] [place] [address] Care Team Providers Care Android Developer Name Role Phone Michael Luke Primary Care Provider Encounter Details Date Type Department Care Team (Late st Contact Info) Description 05/15/2020 Transcribed Document [facility] [place] Family Medicine [facility] [place] [address] ProviderAugustus MD [address] [place], [place] [address] Social History Tobacco Use Types Packs/Day Years [...] the upper and lower extremities. COORDINATION: Normal gaqfge-ny-jzui. Normal rapid alternating movements. IMPRESSION: Dewayne has [...] of oxcarbazepine. 5. Continue other home medications. /[id number] MD MADDY Pérez/BRODY / MADDY / ALBERT documented in this encounter Plan of Treatment Not on file documented as of this encounter Visit Diagnoses Not on filedocumented in this encounter Care Teams Android Developer Relationship Specialty Start Date End Date Michael Luke DO PCP - General General Internal Medicine 08/02/23 documented as of this encounter
--- OUTSIDE RECORDS SUMMARY | 2025-03-25 14:30 | XMS_ITS | Encounter Summary ---
Author Organization [employer] ([place], [place], [place], [place]) Address [address] [place] [address] Care Team Providers Care Tailor Women'S Garment Alteration Name Role Phone Michael Luke Tania MARK Primary Care Provider Encounter Details Date Type Department Care Team (Late st Contact Info) Description 05/16/2020 Transcribed Document [facility] [place] [address] ProviderAugustus MD [address] [place] [address] Social History Tobacco Use Types Packs/Day Years [...] History of obstructive sleep apnea / IMO [id number] / Confirmed, Active Problems (2) History of [...] EDT Height Source Stated Height Entry Format [place] Height/Length, THAI (ft) 6 ft Height/Length THAI 0 Inch CLINICALHEIGHT 182.88 cm [place] Body Weight 77 kg Weight Source Bed scale Weight Entry Format [place] Weight Armenian lb 250 lb CLINICALWEIGHT 113.64 kg Body [...] level of activity Electronically signed by Frankie, [facility] Conversion Airline Security Representative Cerner at 12/05/2022 2:32 PM CDT documented in this encounter Plan of Treatment Not on file documented as of this encounter Visit Diagnoses Not on filedocumented in this encounter Care Teams Tailor Women'S Garment Alteration Relationship Specialty Start Date End Date Michael Luke DO PCP - General General Internal Medicine 08/02/23 documented as of this encounter
== END 2025-03-24 23:59 | disposition home or self-care (01) ==
LOC: LAB.DROPOF 03-25 14:26
PROVIDERS: PCP Nurse Practitioner Family; Visit Provider Nurse Practitioner Family
DX: E29.1 Testicular hypofunction (principal); R79.89 Other specified abnormal findings of blood chemistry; N52.9 Male erectile dysfunction, unspecified
CPT/HCPCS: 84403

== ENCOUNTER 2025-07-09 16:55 | Outpatient (CLI) | payer MEDICARE, SELFPAY ==
[2025-07-09 17:07] LABS: Microscopic, Urine URINE MICROSCOPIC (MICROSCOPIC)
[2025-07-09 18:13] LABS: Anion Gap 13.1 mEq/L (5-15); Blood Urea Nitrogen 10 mg/dl (9-20); Calcium 9.4 mg/dl (8.4-10.2); Carbon Dioxide 24 mmol/L (22.0-30.0); Chloride 101 mmol/L (98-107); Cholesterol 254 mg/dl (140-200); Creatinine,Serum 0.90 mg/dl (0.66-1.25); Estimated Glomerular Filt Rate 91 ml/min (>60); GFR (African American) 110 ML/MIN (>60); Glucose 91 mg/dl (74-100); HDL Cholesterol 39 mg/dl (40-60); Potassium 4.1 mmoL/L (3.5-5.1); Sodium 134 mmol/L (136-145)
[2025-07-09 18:16] LABS: Triglycerides 436 mg/dl (30-150)
[2025-07-09 18:29] LABS: Bilirubin,Urine Negative (Negative); Color,Urine YELLOW (Yellow); Glucose,Urine (UA) Negative (Negative); Ketones,Urine Negative (Negative); Leukocyte Esterase,Urine Negative (Negative); PH,Urine 6.0 (5.0-8.5); Protein,Urine Negative (Negative); Specific Gravity, Urine 1.020 (1.005-1.030); Urobilinogen,Urine 0.2 EU/dl (0.2)
[2025-07-09 18:31] LABS: Hemoglobin A1C 5.3 % (4.0-6.0)
[2025-07-09 19:09] LABS: Bacteria,Urine Trace /lpf
--- OUTSIDE RECORDS SUMMARY | 2025-07-10 11:52 | XMS_ITS | Encounter Summary ---
Author Organization [employer] ([place], [place], [place], [place], [place]) Address [address] [place] [address] Care Team Providers Care Billiard Parlor Manager Name Role Phone Fina Lukeew Tania MARK Primary Care Provider Encounter Details Date Type Department Care Team (Late st Contact Info) Description 05/17/2020 Transcribed Document [facility] [place] [address] [place] [address] ProviderAugustus MD [address] [place] [address] Social History Tobacco Use Types Packs/Day Years [...] on filedocumented in this encounter Care Teams Billiard Parlor Manager Relationship Specialty Start Date End Date Michael Luke DO PCP - General General Internal Medicine 08/02/23 documented as of this encounter
--- OUTSIDE RECORDS SUMMARY | 2025-07-10 11:52 | XMS_ITS | Clinical Summary ---
Author Organization [facility] Address [facility] [place] [address] Care Team Providers Care Viner Operator Name Role Phone Michael Luke DO Primary [...] therelease of HIV test results or diagnoses. [id number] Allergies No known active allergies Medications [...] (02/19/2019): Added automatically from request for surgery [id number] Elevated troponin Family History Medical History Relation [...] Plan of Treatment Not on file Insurance [employer] ACCESS Advance Directives For more information, please contact: [phone] * Full Code (Latest Code Status on File) Date Activated Date Inactivated Comments 02/15/2019 7:32 AM 02/23/2019 6:53 PM Care Teams Viner Operator Relationship Specialty Start Date End Date Michael Luke DO [address] [place] [address] PCP - General 02/15/19
--- OUTSIDE RECORDS SUMMARY | 2025-07-10 11:52 | XMS_ITS | Clinical Summary ---
Author Organization [facility] Address [address] [place] [address] Care Team Providers Care Plastic Surgery Technician Name Role Phone NirmalyurijeraldMichael Tania MARK Primary Care Provider Allergies Active Allergy Reactions Criticality Noted Date Comments Dml Forte Other - please docum ent in the [...] Active Problems Problem Noted Date Diagnosed Date Type 2 diabetes mellitus wit h chronic kidney disease, without long-term current use of insulin 12/04/2024 Resistant hypertension 12/04/2024 Other hyperlipidemia 12/04/2024 Chronic kidney disease-mineral and bone disorder (CKD-MBD) 12/04/2024 Chronic a-fib 12/04/2024 Resolved Problems Problem Noted Date Diagnosed Date Resolved Date BHAKTI (acute kidney injury) 12/04/2024 Encounters Date Type Department Care Team Description 06/27/2025 Travel from Last 3 Months Family History Medical History Relation Name Comments [...] 12/04/2024 1:10 PM EDT Plan of Treatment Health Maintenance Due Date Last Done Comments [facility]-Depression Screening 1980 [facility]-Diabetes: Hemoglobin A1C 1980 [facility]-Medicare Annual Wellness (AWV) 1980 [facility]-Infant/Child/Adol SDOH Screenings 1980 Diabetes: Dental Exam 1989 [facility]-Varicella Vaccines (1 of 2 - 13+ 2-dose series) 1992 [facility]- SDOH Screenings 1997 [facility]-Adult SDOH Screenings 1997 [facility]-DTaP,Tdap,and Td Vaccine s (1 - Tdap) 1998 [facility]-Hepatitis B Vaccines (1 of 3 - 19+ 3-dose series) 1998 [facility]-Pneumococcal Vaccine: Pediatrics (0 to 5 Years) and At-Risk Patients (6 to 49 Years) (1 of 2 - PCV) 1998 HPV Vaccines (1 - 3-dose SCD M series) 2006 CT Colonography 2024 Colonoscopy 2024 FIT-DNA 2024 FIT 2024 FOBT 2024 Sigmoidoscopy 2024 [facility]-Colorectal Cancer Screening 2024 [id number] Vaccine (3 - 2024- season) 2025 03/28/2021, 02/27/2021 [facility]-Influenza Vaccine (#1) 2025 [facility]-Zoster Vaccines (1 [...] HIV 1/2 Differentiation (10/07/2024 6:24 PM EST) HIV 1 & 2 Antibody/Antigen Screen Non Reactive Non Reactive 10/07/2024 7:28 PM EST [facility] Comment:Screening for HIV 1 & 2 antibodies, and P24 antigen is NONREACTIVE. No confirmatory testing is required. Blood Venous blood specimen / Unknown Venipuncture / Unknown 10/07/2024 6:24 PM EST 10/07/2024 6:46 PM EST [employer] DO LAB BLOOD ORDERABLES Final Res ult [facility] [address] [place] [address] * Hepatitis C Antibody - ED (10/07/2024 6:24 PM EST) Pathologist [facility] Hepatitis C Antibody Negative Negative 10/07/2024 7:29 PM EST [facility] Blood Venous blood specimen / Unknown Venipuncture / Unknown 10/07/2024 6:24 PM EST 10/07/2024 6:46 PM EST [employer] DO LAB BLOOD ORDERABLES Final Res ult [facility] [address] [place] [address] from Last 3 Months or Most Recently Relevant to Health Maintenance Insurance [facility] Care Teams Plastic Surgery Technician Relationship Specialty Start Date End Date Michael Luke DO [facility] [address] [place] [address] PCP - General 01/01/21
--- OUTSIDE RECORDS SUMMARY | 2025-07-10 11:52 | XMS_ITS | Encounter Summary ---
Author Organization [employer] ([place], [place], [place], [place], [place]) Address [address] [place] [address] Care Team Providers Care Transportation Design Engineer Name Role Phone Marly Michael Tania MARK Primary Care Provider Encounter Details Date Type Department Care Team (Late st Contact Info) Description 05/17/2020 Transcribed Document [facility] [place] [address] [place] [address] ProviderAugustus MD [address] [place] [address] Social History Tobacco Use Types Packs/Day Years [...] On: 05/17/2020 10:51 EDT by Krupa Manning cell preparer Documentation Discharge Date/Time : 05/17/2020 10:51 EDT [...] - 05/17/2020 10:51 EDT Electronically signed by Frankie, [facility] Conversion Sales Route Driver Cerner at 12/05/2022 2:31 PM CDT documented in this encounter Plan of Treatment Not on file documented as of this encounter Visit Diagnoses Not on filedocumented in this encounter Care Teams Transportation Design Engineer Relationship Specialty Start Date End Date Michael Luke DO PCP - General General Internal Medicine 08/02/23 documented as of this encounter
--- OUTSIDE RECORDS SUMMARY | 2025-07-10 11:53 | XMS_ITS | Clinical Summary ---
Author Organization [facility] , [facility] Address [address] [place] [place] [address] Phone Care Team Providers Care Exhibition Designer Name Role Phone Marly EMERY, Michael Unavailable [phone] Jethro Carlson MD Unavailable [phone] Reason for Referral Date Encounter Description Provider Reason for Referral 03/03/22 Non Physician Specified Jethro Carlson MD R eferral To Physician Reason for Visit and Chief Complaint The Chief Complaint is: L knee pain Problems Includes: Problems addressed during this encounter and other active Problems Current Visit Onset Date Resolved Date Provider Alicia valencia Status Joint Pain Left Knee 03/03/2022 Jethro Carlson MD Active Last Documented On 2 9:10AM ; [facility] Plan of Treatment WE WILL START HIM ON ANTI-INFLAMMATORY MEDICATION MOBIC, SEND HIM FOR PHYSICAL THERAPY AND FOLLOW UP IN 3-4 WEEKS FOR RECHECK. IF HE HAS NO IMPROVEMENT AT THAT TIME WE WILL CONSIDER A MRI TO RULE OUT A MENISCUS TEAR - Last Documented On 03/17/2022 10:59AM ; [facility], [facility] Pending Tests Order Diagnosis Results Due Ordering P rovider Therapy - Physical Therapy Knee 03/03/22 Jethro Carlson MD Last Documented On 2 10:59AM ; [facility], [facility] Instructions to patient Lose weight Last Documented On 2 9:12AM ; [facility], [facility] Assessments Includes: Assessments from this encounter [...] - Last Documented On 03/17/2022 10:59AM ; [facility] PHYSICAL EXAM - Last Documented On 03/17/2022 10:59AM ; [facility] CONSTITUTIONAL: Well developed, well groomed, well nourished patient in no acute distress who appears stated age, height and weight. - Last Documented On 03/17/2022 10:59AM ; [facility], [facility] PSYCHIATRIC: The patient is alert and oriented to person, place, date and situation. Mood and affect are normal for current situation. - Last Documented On 03/17/2022 10:59AM ; [facility] NEUROLOGICAL: Sensation normal bilateral upper and lower extremities. - Last Documented On 03/17/2022 10:59AM ; [facility] LYMPHATIC: No pitting edema noted in the lower extremities. - Last Documented On 03/17/2022 10:59AM ; [facility] SKIN: No lesions noted on upper or lower extremities. Skin is dry, warm and with normal turgor. - Last Documented On 03/17/2022 10:59AM ; [facility] VASCULAR: No swelling in upper or lower extremities other than described below in extremity exam. Dorsalis Pedis Pulses normal in lower extremities. - Last Documented On 03/17/2022 10:59AM ; [facility] GAIT AND STATION: Normal gait without assistive devices. Station normal. - Last Documented On 03/17/2022 10:59AM ; [facility] LEFT KNEE: No Deformity. Normal Q [...] Last Documented On 03/17/2022 10:59AM ; [facility] RIGHT KNEE: No Deformity. Normal Q [...] Last Documented On 03/17/2022 10:59AM ; [facility] Instructions Includes: Instructions from this encounter Instructions to patient Lose weight Last Documented On 2 9:12AM ; [facility] Medical Equipment - Implanted Devices Includes: Current Devices No Medical Equipment Recorded Medications Includes: Medications discussed during this encounter and other current Medications New / Renewed during this visit Jethro Carlson MD on 03/03/2022 Meloxicam 15 MG Oral Tablet Provider: Jethro Carlson MD 30 day supply: 30 tablet, 0 refills Diagnosis: once a day Pharmacy: [facility]/pharmacy #[id number] [place], [address] - Last Documented On 2 9:53AM By Carin Boudreaux ; [facility] Current Medications (continue as prescribed) Spironolactone 25 MG Oral Tablet 01/03/2022 Provider : Diagnosis: Last Documented On 2 9:10AM By [facility] Omeprazole 20 MG Oral Capsul e Delayed Release 12/06/2021 Provider: Michael Luke MD Diagnosis: Last Documented On 2 9:10AM By Teresa [facility], [facility] Fenofibric Acid 135 MG Oral Capsule Delayed Release 10/29/2021 Provider: Michael Luke MD Diagnosis: Last Documented On 2 9:10AM By [facility] hydrALAZINE HCl 50 MG Oral Tablet 10/28/2021 Provide r: Michael Luke MD Diagnosis: Last Documented On 2 9:10AM By Teresa Cheatham ; [facility] Dilt-XR 240 MG Oral Capsule Extended Release 24 Hour 10/27/2021 Provider: Michael Luke MD Diagnosis: Last Documented On 2 9:10AM By Teresa Cheatham ; [facility] Labetalol HCl 200 MG Oral Tablet 10/27/2021 Provider : Michael Luke MD Diagnosis: Last Documented On 2 9:10AM By Teresa Cheatham ; [facility] OXcarbazepine 300 MG Oral Tablet 10/27/2021 Provider : Michael Luke MD Diagnosis: Last Documented On 2 9:10AM By Teresa Cheatham ; [facility] Potassium Chloride Elsi ER 2 0 MEQ Oral Tablet Extended Release 10/27/2021 Provider: Michael valentine MD Diagnosis: Last Documented On 2 9:10AM By Teresa Cheatham ; [facility] Medications Administered Includes: Administered Medications from this encounter No Administered Medications Recorded Vital Signs Includes: Vital Signs from this encounter Vital Name 03/03/2022 09:34A Blood Pressure Sitting (mmHg) 188/117 Pulse Rate-Sitting (bpm) 80 Height (in) 72 Weight (lb) 256 Body Mass Index (kg/m2) 34.7 Body Surface Area (m2) 2.4 Note: saw Last Documented: On 03/03/2022 9:35AM ; [facility] Results Includes: Results discussed during this [...] Documented On 2 10:59AM ; [facility] No recent change in diet 03/03/2022 Last Documented On 2 10:59AM ; [facility], [facility] Not a current smoker. 03/03/2022 Last Documented On 2 10:59AM ; [facility] Not exercising regularly 03/03/2022 Last Documented On 2 10:59AM ; [facility] Not using alcohol 03/03/2022 Last Documented On 2 10:59AM ; [facility] Not using drugs 03/03/2022 Last Documented On 2 10:59AM ; [facility] Non-smoker 03/03/2022 Last Documented On 2 10:59AM ; [facility] Not a smoker 03/03/2022 Last Documented On 2 10:59AM ; [facility] Smoking Status Unknown Procedures and Surgical History Includes: Procedures from this encounter Procedures Code Diagnosis Performing Provider Service L ocation Service Date use of tobacco assessment performed 1000F Last Documented On 2 9:12AM ; [facility], [facility] patient not screened for future fall risk 3288F Last Documented On 2 9:12AM ; [facility], [facility] follow-up visit not in one month with PC P for elevated BP Last Documented On 2 9:12AM ; [facility], [facility] no referral to physician Last Documented On 2 9:12AM ; [facility] Medical History Includes: Medical History addressed during this encounter Description Last Updated No recent immunization for flu 2 Last Documented On 2 10:59AM ; [facility], [facility] No recent immunization for pneumococcal pneumonia 03/03/2022 Last Documented On 2 10:59AM ; [facility], [facility] Family History Includes: Family History addressed [...] Diagnosis Non Physician Specified Jethro Carlson MD [facility] 03/03/20 22 9:18AM 9:46AM Insurance Includes: Active Insurance Policies Plan Name Member ID Group # Subscriber Relationship Effect roma Dates 1 - HU[employer] [id number] Dewayne [place] 2021 - Unknown Clinical Notes Includes: Clinical Notes from this encounter No Clinical Notes Recorded
--- OUTSIDE RECORDS SUMMARY | 2025-07-10 11:53 | XMS_ITS | Encounter Summary ---
Author Organization [employer] ([place], [place], [place], [place], [place]) Address [address] [place] [address] Care Team Providers Care Warehouse Freight Handler Name Role Phone Fina Lukeew Tania MARK Primary Care Provider Encounter Details Date Type Department Care Team (Late st Contact Info) Description 05/17/2020 Transcribed Document [facility] [place] [address] [place] [address] ProviderAugustus MD [address] [place] [address] Social History Tobacco Use Types Packs/Day Years Used Date Smoking Tobacco: Never Assessed Sex and Gender Information Value Date Recorded Sex Assigned at Not on file Legal Sex Male 5:55 PM CDT Gender Identity Not on file Sexual Orientation Not on file documented as of this encounter Miscellaneous Notes * Cerner Conversion Note - Historical ProviderMD - 05/17/2020 10:51 AM CDT Stroke/Warfarin Instructions Entered On: 05/17/2020 10:51 EDT Performed On: 05/17/2020 10:51 EDT by Krupa Manning RN Stroke/Warfarin Instructions Stroke/TIA Discharge Ins : N/A Warfarin Discharge Ins : N/A Krupa Manning RN - 05/17/2020 10:51 EDT Electronically signed by Lesley David Conversion Business And Marketing Teacher Cerner at 12/05/2022 2:23 PM CDT documented in this encounter Plan of Treatment Not on file documented as of this encounter Visit Diagnoses Not on filedocumented in this encounter Care Teams Warehouse Freight Handler Relationship Specialty Start Date End Date Michael Luke DO PCP - General General Internal Medicine 08/02/23 documented as of this encounter
--- OUTSIDE RECORDS SUMMARY | 2025-07-10 11:53 | XMS_ITS | Encounter Summary ---
Author Organization [employer] ([place], [place], [place], [place], [place]) Address [address] [place] [address] Care Team Providers Care Central Service Supply Distributor Name Role Phone Michael Luke DO Primary Care Provider Encounter Details Date Type Department Care Team (Late st Contact Info) Description 05/17/2020 Transcribed Document [facility] [place] [address] [place] [address] ProviderAugustus MD [address] [place] [address] Social History Tobacco Use Types [...] Briseno MD - 05/17/2020 10:52 AM CDT [facility] [address] [place] [id number] DEWAYNE KURTZ :1980 Visit Time:05/15/2020 Your Visit Summary Your Care Team Admitting Physician - KELSEY AVALOS MD-NEU Attending Physician - KELSEY AVALOS MD-NEU Primary Care Physician - WHITNEY LUKE (REF)ELIGIOINT Referring Physician - BAILEY, TOUFIC A, MD-CYNTHIA Your Diagnosis Intractable localization-related epilepsy Discharge Vitals [...] like to make the appointment yourself. Where: [address] [place] [address] [phone] [facility] (1) Medications What How Much When Instructions [...] these instructions at home: Medicines ??? Take espc-tkz-fcjmpqb and prescription medicines only as told by [...] check with your local DMV (department of [employer]) to find out about local driving laws. [...] medicines are used to treat seizures. Take bjca-shr-fwmryrx and prescription medicines only as told by your health care provider. This information is not intended to replace advice given to you by your health care provider. Make sure you discuss any questions you have with your health care provider. Document Released: 08/04/2001 Document Revised: 10/25/2019 Document Reviewed: 10/25/2019 [employer] Patient Education ?? 2020 [employer]. oxcarbazepine (ox aldo walker) Oxtellar XR, Trileptal [...] may report side effects to FDA at 1-156-MHD-4406. What other drugs will affect oxcarbazepine? Using [...] can affect oxcarbazepine. This includes prescription and xxyt-qou-yvtgqjm medicines, vitamins, and herbal products. Not all [...] to ensure that the information provided by [employer] ('[employer]') is accurate, up-to-date, and complete, but no guarantee is made to that effect. Drug information contained herein may be time sensitive. [employer] information has been compiled for use by healthcare practitioners and consumers in the [place] and therefore [employer] does not warrant that uses outside of the [place] are appropriate, unless specifically indicated otherwise. Group Therapy Recordss drug information does not endorse drugs, diagnose patients or recommend therapy. Group Therapy Recordss drug information is an informational resource designed [...] effective or appropriate for any given patient. [employer] does not assume any responsibility for any aspect of healthcare administered with the aid of information [facility] provides. The information contained herein is not intended to cover all possible uses, directions, precautions, warnings, drug interactions, allergic reactions, or adverse effects. If you have questions about the drugs you are taking, check with your doctor, nurse or pharmacist. Copyright 0418-2677 [facility] W4. Version: 10.09. Revision Date: 12/22/2017. Emergency Awareness [...] Assistance with quitting is available by contacting 4-717-YUMUFlogs.comNOW. This is a free resource providing counseling, [...] was given the opportunity to ask questions. Patient/Mutual Fund Analyst Name: Patient/Mutual Fund Analyst Signature: Relationship to Patient: Clinician/Hospital Mutual Fund Analyst Signature: Date: Electronically signed by Frankie, [facility] Conversion Livestock Haulier Cerner at 12/05/2022 2:41 PM CDT documented in this encounter Plan of Treatment Not on file documented as of this encounter Visit Diagnoses Not on filedocumented in this encounter Care Teams Central Service Supply Distributor Relationship Specialty Start Date End Date Michael Luke DO PCP - General General Internal Medicine 08/02/23 documented as of this encounter
--- OUTSIDE RECORDS SUMMARY | 2025-07-10 11:53 | XMS_ITS | Encounter Summary ---
Author Organization [employer] ([place], [place], [place], [place], [place]) Address [address] [place] [address] Care Team Providers Care Wheel Fitter Name Role Phone Fina Lukeew Tania MARK Primary Care Provider Encounter Details Date Type Department Care Team (Late st Contact Info) Description 05/16/2020 Transcribed Document [facility] [place] Family Medicine [address] [place] [address] Augustus Briseno MD [address] [place] [address] Social History Tobacco Use Types Packs/Day Years [...] EEG-video monitoring was performed using the 32-channel [employer] monitoring system. The seizure detection computer was [...] dysfunction in the right anterior temporal region. /[id number] Aura Chavez MD TAF/AQ / TAF / MODL /[id number] Electronically signed by Frankie [facility] Conversion Route Driver Coin Machines Cerner at 12/05/2022 2:27 PM CDT documented in this encounter Plan of Treatment Not on file documented as of this encounter Visit Diagnoses Not on filedocumented in this encounter Care Teams Wheel Fitter Relationship Specialty Start Date End Date Michael Luke DO PCP - General General Internal Medicine 08/02/23 documented as of this encounter
--- OUTSIDE RECORDS SUMMARY | 2025-07-10 11:53 | XMS_ITS | Encounter Summary ---
Author Organization [employer] ([place], [place], [place], [place], [place]) Address [address] [place] [address] Care Team Providers Care Hot Mill Shearer Name Role Phone Michael Luke DO Primary Care Provider Encounter Details Date Type Department Care Team (Late st Contact Info) Description 05/16/2020 Transcribed Document [facility] [place] Family Medicine [address] [place] [address] ProviderAugustus MD [address] [place] [address] Social History Tobacco Use Types Packs/Day Years [...] 1 Health Plan: ANTHEM HMOPPO Policy Number: [id number] Authorization Number: Insurance 2 Health Plan: MEDICARE Policy Number: [id number] Authorization Number: Insurance Primary Name : ANTHEM HMOPPO Policy Number: [id number] Authorized Service Begin Date-Primary : 05/15/2020 EDT Historical Authorization Comments-Primary : No Authorization Comments Found Linsey Anderson, Rn-Utilization Review - 05/16/2020 10:00 EDT documented in this encounter Plan of Treatment Not on file documented as of this encounter Visit Diagnoses Not on filedocumented in this encounter Care Teams Hot Mill Shearer Relationship Specialty Start Date End Date Michael Luke DO PCP - General General Internal Medicine 08/02/23 documented as of this encounter
--- OUTSIDE RECORDS SUMMARY | 2025-07-10 11:53 | XMS_ITS | Referral Summary ---
Author Organization [employer] ([place], [place], [place], [place], [place]) Address [address] [place] [address] Care Team Providers Care As400 Consultant Name Role Phone Michael Luke DO Primary [...] Date Kevin rded Speak language other than German at home Not on file 09/01/2023 Want [...] file Insurance [employer] MEDICARE HMO Care Teams As400 Consultant Relationship Specialty Start Date End Date Michael Luke DO PCP - General General Internal Medicine 08/02/23
--- OUTSIDE RECORDS SUMMARY | 2025-07-10 11:53 | XMS_ITS | Encounter Summary ---
Author Organization [employer] ([place], [place], [place], [place], [place]) Address [address] [place] [address] Care Team Providers Care Web Content Editor Name Role Phone Fina Lukeew Tania MARK Primary Care Provider Encounter Details Date Type Department Care Team (Late st Contact Info) Description 05/17/2020 Transcribed Document [facility] [place] [address] [place] [address] ProviderAugustus MD [address] [place] [address] Social History Tobacco Use Types Packs/Day Years [...] up with Dr. Chavez in 6 months. /[id number] MD MADDY Pérez/AQ / MADDY / MODL /[id number] Electronically signed by Frankie [facility] Conversion Telephone Operator Cerner at 12/05/2022 2:34 PM CDT documented in this encounter Plan of Treatment Not on file documented as of this encounter Visit Diagnoses Not on filedocumented in this encounter Care Teams Web Content Editor Relationship Specialty Start Date End Date Michael Luke DO PCP - General General Internal Medicine 08/02/23 documented as of this encounter
--- OUTSIDE RECORDS SUMMARY | 2025-07-10 11:53 | XMS_ITS | Encounter Summary ---
Author Organization [employer] ([place], [place], [place], [place], [place]) Address [address] [place] [address] Care Team Providers Care Hand Molder Meat Name Role Phone Fina Lukeew Tania MARK Primary Care Provider Encounter Details Date Type Department Care Team (Late st Contact Info) Description 05/17/2020 Transcribed Document [facility] [place] [place] Family Medicine [address] [place] [address] ProviderAugustus MD [address] [place] [address] Social History Tobacco Use Types Packs/Day Years Used Date Smoking Tobacco: Never Assessed Sex and Gender Information Value Date Recorded Sex Assigned at Not on file Legal Sex Male 5:55 PM CDT Gender Identity Not on file Sexual Orientation Not on file documented as of this encounter Miscellaneous Notes * Cerner Conversion Note - Augustus Briseno MD - 05/17/2020 12:47 PM CDT Final Discharge Planning Entered On: 05/17/2020 12:48 EDT Performed On: 05/17/2020 12:47 EDT by STEVEN PALMER RN-Clock And Watch Hands Mounter Final Discharge Planning Discharge Arrangements : Patient Post-Acute Information Patient Name: DEWAYNE KURTZ Gender: Male : [birth year] Age: 39 Years No Post-Acute Placement(s) Listed No Post-Acute Service(s) Listed No Cur[place]pan Referral(s) Listed Patient Offered Choice/Affiliations Explained : No Transportation Needs : Family/Friend Follow Up Appointment Scheduled : No (Comment: List of follow up appointments sent to Patient Access. [STEVEN PALMER RN-Clock And Watch Hands Mounter - 05/17/2020 12:47 EDT] ) Is Patient High/Moderate Readmission Risk? : No Patient/Family Notified of Plan : Yes Patient/Family Notified : Patient Is Patient Ready for Discharge? : Yes Physician Notified Patient is Ready for Discharge? : Yes Discharge To Care Management : Home/Residential/Senior Care or Self Care -01 STEVEN PALMER RN-Clock And Watch Hands Mounter - 05/17/2020 12:47 EDT Final Narrative Note Final Narrative Note : RAR Low HD#2 Discharged home with family. STEVEN PALMER RN-Clock And Watch Hands Mounter - 05/17/2020 12:47 EDT documented in this encounter Plan of Treatment Not on file documented as of this encounter Visit Diagnoses Not on filedocumented in this encounter Care Teams Hand Molder Meat Relationship Specialty Start Date End Date Michael Luke DO PCP - General General Internal Medicine 08/02/23 documented as of this encounter
--- OUTSIDE RECORDS SUMMARY | 2025-07-10 11:53 | XMS_ITS | Encounter Summary ---
Author Organization [employer] ([place], [place], [place], [place], [place]) Address [address] [place] [address] Care Team Providers Care Production Recorder Name Role Phone Michael Luke DO Primary Care Provider Encounter Details Date Type Department Care Team (Late st Contact Info) Description 05/17/2020 Transcribed Document [facility] [place] Family [place] [address] [place] [address] ProviderAugustus MD [address] [place] [address] Social History Tobacco Use Types Packs/Day Years Used Date Smoking Tobacco: Never Assessed Sex and Gender Information Value Date Recorded Sex Assigned at Not on file Legal Sex Male 5:55 PM CDT Gender Identity Not on file Sexual Orientation Not on file documented as of this encounter Miscellaneous Notes * Cerner Conversion Note - Historical ProviderMD - 05/17/2020 2:00 AM CDT Business And Financial Counsel Details Entered On: 05/17/2020 2:46 EDT Performed On: 05/17/2020 2:00 EDT by Deidra Allison RN Order Details Order Detail : N/A Deidra Allison RN - 05/17/2020 2:46 EDT documented in this encounter Plan of Treatment Not on file documented as of this encounter Visit Diagnoses Not on filedocumented in this encounter Care Teams Production Recorder Relationship Specialty Start Date End Date Michael Luke DO PCP - General General Internal Medicine 08/02/23 documented as of this encounter
--- OUTSIDE RECORDS SUMMARY | 2025-07-10 11:53 | XMS_ITS | Encounter Summary ---
Author Organization [employer] ([place], [place], [place], [place], [place]) Address [address] [place] [address] Care Team Providers Care Grain Unloader Name Role Phone Michael Luke DO Primary Care Provider Encounter Details Date Type Department Care Team (Late st Contact Info) Description 05/16/2020 Transcribed Document [facility] [place] [address] [place] [address] ProviderAugustus MD [address] [place] [address] Social History Tobacco Use Types Packs/Day Years Used Date Smoking Tobacco: Never Assessed Sex and Gender Information Value Date Recorded Sex Assigned at Not on file Legal Sex Male 5:55 PM CDT Gender Identity Not on file Sexual Orientation Not on file documented as of this encounter Miscellaneous Notes * Cerner Conversion Note - Historical ProviderMD - 05/16/2020 2:00 AM CDT Bomb Squad Commander Details Entered On: 05/16/2020 5:54 EDT Performed On: 05/16/2020 2:00 EDT by Rigoberto Jasmine Rn-Traveler Order Details Order Detail : N/A Rigoberto Jasmine Rn-Traveler - 05/16/2020 5:54 EDT documented in this encounter Plan of Treatment Not on file documented as of this encounter Visit Diagnoses Not on filedocumented in this encounter Care Teams Grain Unloader Relationship Specialty Start Date End Date Michael Luke DO PCP - General General Internal Medicine 08/02/23 documented as of this encounter
--- OUTSIDE RECORDS SUMMARY | 2025-07-10 11:53 | XMS_ITS ---
Author Organization [facility] Address [address] [place] [address] Phone Care Team Providers Care Press Washer Name Role Phone Marly EMERY, Michael Unavailable [phone] Jethro Carlson MD Unavailable [phone] Reason for Referral Date Encounter Description Provider Reason for Referral 03/03/22 Non Physician Specified Jethro Carlson MD R eferral To Physician Problems Includes: Active, inactive, and resolved Problems All Visits Onset Date Resolved Date Provider Condition S tatus Joint Pain Left Knee 03/03/2022 Jethro Carlson MD Active Last Documented On 2 9:10AM ; [facility] Plan of Treatment Instructions to patient Lose weight Last Documented On 2 9:12AM ; [facility] Assessments Includes: Assessments for all patient encounters No Assessments Recorded Instructions Includes: Instructions for all patient encounters Instructions to patient Lose weight Last Documented On 2 9:12AM ; [facility] Medical Equipment - Implanted Devices Includes: Current and historical Devices No Medical Equipment Recorded Medications Includes: Current and historical Medications Current Medications (continue as prescribed) Spironolactone 25 MG Oral Tablet 01/03/2022 Provider : Diagnosis: Last Documented On 2 9:10AM By Teresa [facility] Omeprazole 20 MG Oral Capsul e Delayed Release 12/06/2021 Provider: Michael Luke MD Diagnosis: Last Documented On 2 9:10AM By Teresa [facility] Fenofibric Acid 135 MG Oral Capsule Delayed Release 10/29/2021 Provider: Michael Luke MD Diagnosis: Last Documented On 2 9:10AM By Teresa Cheatham ; [facility] hydrALAZINE HCl 50 MG Oral Tablet 10/28/2021 Provide r: Michael Luke MD Diagnosis: Last Documented On 2 9:10AM By Teresa Cheatham ; [facility] Dilt-XR 240 MG Oral Capsule Extended Release 24 Hour 10/27/2021 Provider: Michael Luke MD Diagnosis: Last Documented On 2 9:10AM By Teresa Cheatham ; [facility], [facility] Labetalol HCl 200 MG Oral Tablet 10/27/2021 Provider : Michael Luke MD Diagnosis: Last Documented On 2 9:10AM By Teresa Cheatham ; [facility], [facility] OXcarbazepine 300 MG Oral Tablet 10/27/2021 Provider : Michael Luke MD Diagnosis: Last Documented On 2 9:10AM By Teresa Cheatham ; [facility] Potassium Chloride Elsi ER 2 0 MEQ Oral Tablet Extended Release 10/27/2021 Provider: Michael valentine MD Diagnosis: Last Documented On 2 9:10AM By Teresa Cheatham ; [facility] Past Medications on file Meloxicam 15 MG Oral Tablet 03/03/2022 - 04/02/2022 Pr ovider: Jethro Carlson MD Diagnosis: once a day Last Documented On 2 9:53AM By Carin Boudreaux ; [facility] Medications Administered Includes: Administered Medications in patient's chart No Administered Medications Recorded Results Includes: Results from 07/10/2024 through 07/10/2025 No Results Recorded For Specified Dates History of Present Illness History of Present Illness not supported for this document type No History of Present Illness Recorded Social History Description Last Updated No caffeine use 03/03/2022 Last Documented On 2 10:59AM ; [facility] No recent change in diet 03/03/2022 Last Documented On 2 10:59AM ; [facility] Not a current smoker. 03/03/2022 Last Documented [...] Relationship Effect roma Dates 1 - [employer] [id number] Dewayne Kurtz Self 2021 - Unknown Clinical Notes Includes: Signed Clinical Notes starting from 08/04/2022 No Clinical Notes Recorded
--- OUTSIDE RECORDS SUMMARY | 2025-07-10 11:53 | XMS_ITS | Clinical Summary ---
Author Organization [facility] Address [address] [place] [address] Care Team Providers Care Stripper And Taper Name Role Phone Unavailable Primary Care Provider [...] 1979 TDAP/TD VACCINES (1 - Tdap) 1998 COLOGUARD 2024 COLON CANCER SCREENING 5 YEA R SIGMOIDOSCOPY 2024 COLONOSCOPY 2024 COLORECTAL CANCER SCREENING 2024 CT COLONOGRAPHY 2024 FECAL OCCULT BLOOD TEST 2024 FIT Testing (1 year) 2024 INFLUENZA VACCINE 03/21/2025 Pneumococcal Vaccine 0-49 Aged Out No longer eligible based on patient's age to complete this topic
--- OUTSIDE RECORDS SUMMARY | 2025-07-10 11:54 | XMS_ITS | Encounter Summary ---
Author Organization [employer] ([place], [place], [place], [place], [place]) Address [address] [place] [address] Care Team Providers Care Information Assurance Officer Name Role Phone Fina Lukeew Tania MARK Primary Care Provider Encounter Details Date Type Department Care Team (Late st Contact Info) Description 05/17/2020 Transcribed Document [facility] [place] Family Medicine [address] [place] [address] Augustus Briseno MD [address] [place] [address] Social History Tobacco Use Types Packs/Day Years [...] EEG-video monitoring was performed using the 32-channel MailTime monitoring system. The seizure detection computer was [...] dysfunction in the left anterior temporal region. /[id number] Aura Chavez MD TAF/AQ / TAF / MODL /[id number] Electronically signed by Frankie [facility] Conversion Pick Up Truck Driver Cerner at 12/05/2022 2:26 PM CDT documented in this encounter Plan of Treatment Not on file documented as of this encounter Visit Diagnoses Not on filedocumented in this encounter Care Teams Information Assurance Officer Relationship Specialty Start Date End Date Mihcael Luke DO PCP - General General Internal Medicine 08/02/23 documented as of this encounter
--- OUTSIDE RECORDS SUMMARY | 2025-07-10 11:54 | XMS_ITS | Encounter Summary ---
Author Organization [employer] ([place], [place], [place], [place]) Address [address] [place] [address] Care Team Providers Care Gallery Manager Name Role Phone Fina Lukeew Tania MARK Primary Care Provider Encounter Details Date Type Department Care Team (Late st Contact Info) Description 05/17/2020 Transcribed Document [facility] [place] Family Medicine [address] [place] [address] ProviderAugustus MD [address] [place] [address] Social History Tobacco Use Types Packs/Day Years [...] these instructions at home: Medicines ??? Take pcws-pzb-aswciho and prescription medicines only as told by [...] medicines are used to treat seizures. Take lezo-ynm-lvgmfkx and prescription medicines only as told by your health care provider. This information is not intended to replace advice given to you by your health care provider. Make sure you discuss any questions you have with your health care provider. Document Released: 08/04/2001 Document Revised: 10/25/2019 Document Reviewed: 10/25/2019 [employer] Patient Education ? 2019 [employer] documented in this encounter Plan of Treatment Not on file documented as of this encounter Visit Diagnoses Not on filedocumented in this encounter Care Teams Gallery Manager Relationship Specialty Start Date End Date Michael Luke DO PCP - General General Internal Medicine 08/02/23 documented as of this encounter
--- OUTSIDE RECORDS SUMMARY | 2025-07-10 11:54 | XMS_ITS | Encounter Summary ---
Author Organization [employer] ([place], [place], [place], [place]) Address [address] [place] [address] Care Team Providers Care Railroad Dispatcher Name Role Phone Michael Luke DO Primary Care Provider Encounter Details Date Type Department Care Team (Late st Contact Info) Description 05/17/2020 Transcribed Document [facility] [place] [address] [place], [place] [id number] ProviderAugustus MD [address] [place] [address] Social History Tobacco Use Types Packs/Day Years Used Date Smoking Tobacco: Never Assessed Sex and Gender Information Value Date Recorded Sex Assigned at Not on file Legal Sex Male 5:55 PM CDT Gender Identity Not on file Sexual Orientation Not on file documented as of this encounter Miscellaneous Notes * [employer]ner Conversion Note - Augustus Briseno MD - 05/17/2020 10:10 AM CDT [address] , [place] [address] Patient Copy Patient Information: Name: DEWAYNE KURTZ Current Date: 05/17/2020 10:10:17 : 1980 Patient Address: [place] [address] Patient Attending Physician: KELSEY AVALOS MD-CYNTHIA Primary Care Provider: WHITNEY LUKE (REF)MD-INT Primary Care Provider 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 This is a free resource providing counseling, [...] Be sure to sign up for the My [facility] patient portal, which gives you 13/03 access to your medical information ??? including these discharge instructions ??? using your computer, smartphone, or tablet. Just go to [employer]First to get started. Questions? Call . [facility] would like to thank you for allowing us to assist you with your healthcare needs. I, DEWAYNE KURTZ, (or healthcare representative) have received the above patient education materials/instructions and have verbalized understanding: Patient Signature _ Date/Time Patient Material Controller Signature (if needed) Date/Time Clinician/Hospital Material Controller Signature (if needed) Date/Time Electronically signed by Frankie [facility] Conversion Wheat Combine Driver Cerner at 12/05/2022 2:11 PM CDT documented in this encounter Plan of Treatment Not on file documented as of this encounter Visit Diagnoses Not on filedocumented in this encounter Care Teams Railroad Dispatcher Relationship Specialty Start Date End Date Michael Luke DO PCP - General General Internal Medicine 08/02/23 documented as of this encounter
--- OUTSIDE RECORDS SUMMARY | 2025-07-10 11:54 | XMS_ITS | Clinical Summary ---
Author Organization [employer] ([place], [place], [place], [place], [place]) Address [address] [place] [address] Care Team Providers Care Passenger Solicitor Name Role Phone Michael Luke DO Primary [...] Date Kevin rded Speak language other than Syrian at home Not on file 09/01/2023 Want [...] Panel 2014 Medicare Initial AWV [id number] 08/22/2023 Tobacco Cessation Counseling and Screening (12+) 08/02/2024 08/02/2023 COVID-19 VACCINE (3 - 2024-2 6 season) 2025 03/28/2021, 02/27/2021 Influenza Vaccine (#1) 2025 Pneumococcal Vaccine: 0-49 Years Aged Out No longer eligible b ased on patient's age to complete [place] [address] [employer] MEDICARE HMO Care Teams Passenger Solicitor Relationship Specialty Start Date End Date Michael Luke DO PCP - General General Internal Medicine 08/02/23
--- OUTSIDE RECORDS SUMMARY | 2025-07-10 11:54 | XMS_ITS | Encounter Summary ---
Author Organization [employer] ([place], [place], [place], [place], [place]) Address [address] [place] [address] Care Team Providers Care Compounding And Finishing Supervisor Name Role Phone Fina Lukeew Tania MARK Primary Care Provider Encounter Details Date Type Department Care Team (Late st Contact Info) Description 05/16/2020 Transcribed Document [facility] [place] Family Medicine [address] [place] [address] ProviderAugustus MD [address] [place] [address] Social History Tobacco Use Types Packs/Day Years Used Date Smoking Tobacco: Never Assessed Sex and Gender Information Value Date Recorded Sex Assigned at Not on file Legal Sex Male 5:55 PM CDT Gender Identity Not on file Sexual Orientation Not on file documented as of this encounter Miscellaneous Notes * Cerner Conversion Note - Historical ProviderMD - 05/16/2020 5:00 AM CDT Chart Check - Review Order Profile Entered On: 05/16/2020 5:55 EDT Performed On: 05/16/2020 5:00 EDT by Rigoberto Jasmine Rn-Traveler Chart Check Powerplans Initiated/Discontinued as Appropriate : Yes All Active Orders Reviewed : Yes Rigoberto Jasmine Rn-Traveler - 05/16/2020 5:54 EDT Electronically signed by Lesley David Conversion Manufacturing Engineering Intern Cerner at 12/05/2022 2:39 PM CDT documented in this encounter Plan of Treatment Not on file documented as of this encounter Visit Diagnoses Not on filedocumented in this encounter Care Teams Compounding And Finishing Supervisor Relationship Specialty Start Date End Date Michael Luke DO PCP - General General Internal Medicine 08/02/23 documented as of this encounter
--- OUTSIDE RECORDS SUMMARY | 2025-07-10 11:54 | XMS_ITS ---
Care Plan - [facility], [facility] Created on: July 10, 2025 Dewayne Kurtz : 1980 Sex: Male Author Organization [facility], [facility] Address [address] [place] [address] Phone Care Team Providers Care Returned Goods Receiving Clerk Name Role Phone Marly EMERY, Michael Unavailable [phone] Robyn EMERY, Jethro Unavailable [phone]
--- OUTSIDE RECORDS SUMMARY | 2025-07-10 11:54 | XMS_ITS | Encounter Summary ---
Author Organization [employer] ([place], [place], [place], [place], [place]) Address [address] [place] [address] Care Team Providers Care Senior Interactive Developer Name Role Phone Fina Lukeew Tania MARK Primary Care Provider Encounter Details Date Type Department Care Team (Late st Contact Info) Description 05/16/2020 Transcribed Document [facility] [place] [address] [place], [place] [id number] ProviderAugustus MD [address] [place] [address] Social History Tobacco Use Types Packs/Day Years [...] History of obstructive sleep apnea / IMO [id number] / Confirmed, Active Problems (2) History of [...] EDT Height Source Stated Height Entry Format [place] Height/Length, [place] (ft) 6 ft Height/Length [place] 0 Inch CLINICALHEIGHT 182.88 cm [place] Body Weight 77 kg Weight Source Bed scale Weight Entry Format [place] Weight Swiss lb 250 lb CLINICALWEIGHT 113.64 kg Body [...] level of activity Electronically signed by Frankie, [facility] Conversion Wholesale Buyer Cerner at 12/05/2022 2:32 PM CDT documented in this encounter Plan of Treatment Not on file documented as of this encounter Visit Diagnoses Not on filedocumented in this encounter Care Teams Senior Interactive Developer Relationship Specialty Start Date End Date Michael Luke DO PCP - General General Internal Medicine 08/02/23 documented as of this encounter
--- OUTSIDE RECORDS SUMMARY | 2025-07-10 11:54 | XMS_ITS | Encounter Summary ---
Author Organization [employer] ([place], [place], [place], [place]) Address [address] [place] [address] Care Team Providers Care Impregnating Tank Operator Name Role Phone Fina Lukeew Tania MARK Primary Care Provider Encounter Details Date Type Department Care Team (Late st Contact Info) Description 05/17/2020 Transcribed Document [place] Family Medicine [address] [place] [address] Augustus Briseno MD [address] [place] [address] Social History Tobacco Use Types Packs/Day Years [...] EEG-video monitoring was performed using the 32-channel [employer]nexus monitoring system. The seizure detection computer was [...] dysfunction in the left anterior temporal region. /[id number] MD MADDY Pérez/AQ / MADDY / MODL /[id number] documented in this encounter Plan of Treatment Not on file documented as of this encounter Visit Diagnoses Not on filedocumented in this encounter Care Teams Impregnating Tank Operator Relationship Specialty Start Date End Date Michael Luke PCP - General General Internal Medicine 08/02/23 documented as of this encounter
--- OUTSIDE RECORDS SUMMARY | 2025-07-10 11:55 | XMS_ITS | Encounter Summary ---
Author Organization [employer] ([place], [place], [place], [place], [place]) Address [address] [place] [address] Care Team Providers Care Wire Repairer Name Role Phone Fina Lukeew Tania MARK Primary Care Provider Encounter Details Date Type Department Care Team (Late st Contact Info) Description 05/15/2020 Transcribed Document [facility] [place] Family Medicine [address] [place] [address] ProviderAugustus MD [address] [place] [address] Social History Tobacco Use Types Packs/Day Years [...] on filedocumented in this encounter Care Teams Wire Repairer Relationship Specialty Start Date End Date Michael Luke DO PCP - General General Internal Medicine 08/02/23 documented as of this encounter
--- OUTSIDE RECORDS SUMMARY | 2025-07-10 11:55 | XMS_ITS | Encounter Summary ---
Author Organization [employer] ([place], [place], [place], [place], [place]) Address [address] [place] [address] Care Team Providers Care Pvc Loader Name Role Phone Marly Michael Tania MARK Primary Care Provider Encounter Details Date Type Department Care Team (Late st Contact Info) Description 05/15/2020 Transcribed Document [facility] [place] [address] [place] [address] ProviderAugustus MD [address] [place] [address] Social History Tobacco Use Types Packs/Day Years [...] dewayne Legal Guardian : No Support Person/Patient [employer] Operations Consultant : No Want Family/Rep/Phys Notified of Admit : No Emergency Contact #1 : Mae Ramos Emergency Contact #1 Emergency Contact #1 Relationship : Emergency Contact #2 : n Emergency Contact #2 Phone Number : n Emergency Contact #2 Relationship : n Primary Language : Australian Preferred Communication Mode : Verbal Communication Barrier : None Turkey Cleaner Needed : Krupa Way RN - 05/15/2020 16:39 EDT Fall Risk [...] Scale Risk Level : 0-24 Low Risk [place] Fall Interventions : Adequate lighting, Assistive devices [...] Source : Stated Height Entry Format : [place] Height, Feet : 6 ft(Converted to: 183 cm, 72 Inch) Height, Inches : 0 Inch(Converted to: 0 ft 0 Inch, 0.00 cm) Clinical Height : 182.88 cm Weight Source : Bed scale Weight Entry Format : [place] Clinical Dosing Weight : 113.64 kg Weight, Pounds : 250 lb Body Surface Area (BSA) : 2.34 m2 Body Mass Index : 34 kg/m2 (HI) [place] Body Weight : 77 kg Krupa Manning [...] Krupa Manning RN - 05/15/2020 16:39 EDT [place] Suicide Severity Rating Scale (C-SSRS) CSSRS Past [...] Glasses Personal Items : Cell phone, Other: it business systems analyst, ear phones Personal Items Disposition : With patient Medication Disposition : With patient Medication Brought With Patient : Yes Krupa Manning RN - 05/15/2020 16:39 EDT Electronically signed by Frankie [facility] Conversion Water Hauler Cerner at 12/05/2022 2:33 PM CDT documented in this encounter Plan of Treatment Not on file documented as of this encounter Visit Diagnoses Not on filedocumented in this encounter Care Teams Pvc Loader Relationship Specialty Start Date End Date Michael Luke DO PCP - General General Internal Medicine 08/02/23 documented as of this encounter
--- OUTSIDE RECORDS SUMMARY | 2025-07-10 11:55 | XMS_ITS | Encounter Summary ---
Author Organization [employer] ([place], [place], [place], [place], [place]) Address [address] [place] [address] Care Team Providers Care Brazer Helper Induction Name Role Phone Marly Michael Tania MARK Primary Care Provider Encounter Details Date Type Department Care Team (Late st Contact Info) Description 05/15/2020 Transcribed Document [facility] [place] Family Medicine [address] [place] [address] Augustus Briseno MD [address] [place] [address] Social History Tobacco Use Types Packs/Day Years [...] the upper and lower extremities. COORDINATION: Normal trnjjb-ae-ifjx. Normal rapid alternating movements. IMPRESSION: Dewayne has [...] of oxcarbazepine. 5. Continue other home medications. /[id number] MD MADDY Pérez/BRODY / MADDY / MODL documented in this encounter Plan of Treatment Not on file documented as of this encounter Visit Diagnoses Not on filedocumented in this encounter Care Teams Brazer Helper Induction Relationship Specialty Start Date End Date Michael Luke DO PCP - General General Internal Medicine 08/02/23 documented as of this encounter
--- OUTSIDE RECORDS SUMMARY | 2025-07-10 11:55 | XMS_ITS | Encounter Summary ---
Author Organization [employer] ([place], [place], [place], [place], [place]) Address [address] [place] [address] Care Team Providers Care Transfer Station Operator Name Role Phone Michael Luke DO Primary Care Provider Encounter Details Date Type Department Care Team (Late st Contact Info) Description 05/15/2020 Transcribed Document [facility] [place] Family Medicine [address] [place] [address] ProviderAugustus MD [address] [place] [address] Social History Tobacco Use Types Packs/Day Years [...] On: 05/15/2020 8:03 EDT by David Norman GUINEA PIG BREEDER LEAD Meds to Bed Enrollment Patient Enrollment Decision: : Yes/enroll in meds to bed program David Norman PHARMACY TECH LEAD - 05/15/2020 9:41 EDT documented in this encounter Plan of Treatment Not on file documented as of this encounter Visit Diagnoses Not on filedocumented in this encounter Care Teams Transfer Station Operator Relationship Specialty Start Date End Date Michael Luke DO PCP - General General Internal Medicine 08/02/23 documented as of this encounter
--- OUTSIDE RECORDS SUMMARY | 2025-07-10 11:55 | XMS_ITS | Encounter Summary ---
Author Organization [facility] Address [address] [place] [address] Care Team Providers Care Curriculum Developer Name Role Phone Michael Luke DO Primary Care Provider Encounter Details Date Type Department Care Team (Latest Contact Info) Description 06/27/2025 Travel Social History Tobacco Use Types Packs/Day Years Used Date Smoking Tobacco: Never Alcohol Use Standard Drinks/Week Comments Never 0 (1 standard drink = 0.6 oz pur e alcohol) Sex and Gender Information Value Date Recorded Sex Assigned at Not on file Legal Sex Male 7:31 PM EDT Gender Identity Not on file Sexual Orientation Not on file documented as of this encounter Plan of Treatment Not on file documented as of this encounter Visit Diagnoses Not on filedocumented in this encounter Additional Health Concerns Assessment Noted Time A fall risk assessment has been complete d for the patient 12/04/2024 1:21 PM EDT A Body Mass Index follow-up plan has been documented for the patient 12/04/2024 3:02 PM EDT documented as of this encounter Care Teams Curriculum Developer Relationship Specialty Start Date End Date Michael Luke DO [address] [facility] [address] [place] [address] PCP - General 01/01/21 documented as of this encounter
--- OUTSIDE RECORDS SUMMARY | 2025-07-10 11:55 | XMS_ITS | Encounter Summary ---
Author Organization [facility] ([place], [place], [place], [place], [place]) Address [address] [place] [address] Care Team Providers Care Superintendent Greens Name Role Phone Fina Lukeew Tania MARK Primary Care Provider Encounter Details Date Type Department Care Team (Late st Contact Info) Description 05/15/2020 Transcribed Document [facility] [place] Medicine [address] [place] [address] ProviderAugustus MD [address] [place] [address] Social History Tobacco Use Types Packs/Day Years Used Date Smoking Tobacco: Never Assessed Sex and Gender Information Value Date Recorded Sex Assigned at Not on file Legal Sex Male 5:55 PM CDT Gender Identity Not on file Sexual Orientation Not on file documented as of this encounter Miscellaneous Notes * Cerner Conversion Note - Historical ProviderMD - 05/15/2020 11:00 AM CDT Neurodiagnostics Event Note Entered On: 05/15/2020 11:00 EDT Performed On: 05/15/2020 11:00 EDT by LINETTE LOJA Neurodamienostic Tech Neurodiagnostics Event Note Neurodiagnostic Event Date/Time : 05/17/2020 11:00 EDT Neurodiagnostic Event Location : Neurodiagnostic department Neurodiagnostic Event Details : Procedure completed LINETTE LOJA Neurodamienostic Tech - 05/15/2020 11:00 EDT documented in this encounter Plan of Treatment Not on file documented as of this encounter Visit Diagnoses Not on filedocumented in this encounter Care Teams Superintendent Greens Relationship Specialty Start Date End Date Michael Luke DO PCP - General General Internal Medicine 08/02/23 documented as of this encounter
--- OUTSIDE RECORDS SUMMARY | 2025-07-10 11:55 | XMS_ITS | Encounter Summary ---
Author Organization [employer] ([place], [place], [place], [place], [place]) Address [address] [place] [address] Care Team Providers Care Computational Theory Scientist Name Role Phone Fina Lukeew Tania MARK Primary Care Provider Encounter Details Date Type Department Care Team (Late st Contact Info) Description 05/15/2020 Transcribed Document [facility] [place] [address] [place] [address] ProviderAugustus MD [address] [place] [address] Social History Tobacco Use Types Packs/Day Years [...] on filedocumented in this encounter Care Teams Computational Theory Scientist Relationship Specialty Start Date End Date Michael Luke DO PCP - General General Internal Medicine 08/02/23 documented as of this encounter
== END 2025-07-09 23:59 | disposition home or self-care (01) ==
LOC: LAB.DROPOF 07-10 10:45
PROVIDERS: PCP Nurse Practitioner Family; Visit Provider Nurse Practitioner Family
DX: E78.1 Pure hyperglyceridemia (principal); I10 Essential (primary) hypertension; E78.49 Other hyperlipidemia; E11.9 Type 2 diabetes mellitus without complications
CPT/HCPCS: 80048; 80061; 81001; 82043; 82570; 83036; 87086